=== PATIENT | male | born 1945 | race Caucasian/White ===

== ENCOUNTER 2017-06-04 14:53 | Inpatient (IN) | payer MEDICARE, OTHER ==
--- NOTE | 2017-06-04 15:27 | ED Physician Chart ---
ED Chief Complaint/HPI - Patient Information Date Seen:: 06/04/17 Time Seen:: 15:20 Chief Complaint:: aggressive behavior History of Present Illness:: Patient has apparently been exhibiting [facility]. Allergies:: Allergies Allergy/AdvReac Type Severity Reaction Status Date / Time No Known Allergies Allergy Verified 06/04/17 15:09 Vitals:: Vital Signs - 8 hr 06/04/17 15:15 Temp 97.9 F HR 77 RR 18 BP 156/78 O2 Sat % 97 Historian:: Patient, EMS Review:: Nurse's Note Reviewed, Transfer documents Reviewed ED Review of Systems - Review of Systems General/Constitutional: No fever, No chills Skin: No skin lesions Head: No headache Eyes: No loss of vision ENT: No earache Neck: No neck pain, No swelling Cardio Vascular: No chest pain Pulmonary: No SOB GI: No nausea, No vomiting, No diarrhea G/U: No dysuria Musculoskeletal: No bone or joint pain Endocrine: No polyuria Psychiatric: Prior psych history Hematopoietic: No bruising, No lymphadenopathy Neurological: No syncope, No focal symptoms ED Past Medical History - Past Medical History Past Medical History: HTN, Dyslipidemia, PUD/GERD, Seizures, Thyroid disorder, Dementia, Other (hyperlipidemia; transient ischemic attack) Family History: Other (unavailable) Social History: Care Facility Surgical History: other (unavailable) Psychiatricy History: Dementia Medication: Reviewed Family Medical History - Family Member Father Hx Family Cancer: No Hx Family Congestive Heart Failure: No Hx Family Seizures: No Hx Family HIV: No Hx Family COPD: No Hx Family Psychiatric Problems: No Hx Family Tuberculosis: No ED Physical Exam - Physical Examination General/Constitutional: Awake, Alert, No distress Head: Atraumatic Eyes: Lids, conjuctiva normal, PERRL Skin: Nl inspection, No rash, No skin lesions, No ecchymosis ENMT: External ears, nose nl, Nasal exam nl, Oropharynx nl Neck: No nuchal rigidity Respiratory: Nl effort/Exclusion Other Respiratory comments:: Left side expiratory wheezing Cardio Vascular: RRR GI: No tenderness/rebounding/guarding : No CVA tenderness Extremities: No tenderness or effusion, Normal digits & nails Neuro/Psych: No focal deficits Misc: No paraspinal tenderness ED Labs/Radiology/EKG Results - Lab Results Results: Laboratory Results - last 24 hr 06/04/17 06/04/17 06/04/17 15:20 15:20 15:20 WBC 6.0 RBC 4.73 Hgb 14.2 Hct 42.7 MCV 90.2 MCH 30.1 MCHC Differential 33.3 RDW 13.4 Plt Count 152 MPV 9.1 Neutrophils % 62.4 Lymphocytes % 22.3 Monocytes % 8.7 Eosinophils % 6.1 H Basophils % 0.5 Sodium 137 Potassium 4.5 Chloride 104 Carbon Dioxide 28.6 Anion Gap 8.9 BUN 17 Creatinine 0.9 Est GFR ( Amer) > 60.0 Est GFR (Non-Af Amer) > 60.0 BUN/Creatinine Ratio 18.9 Glucose 125 H Calcium 8.7 Total Bilirubin 0.3 AST 25 ALT 19 Alkaline Phosphatase 75 Total Protein 6.5 Albumin 3.8 L Globulin 2.7 Albumin/Globulin Ratio 1.4 Triglycerides 169 H Cholesterol 157 LDL Cholesterol Direct 98 HDL Cholesterol 46 TSH 4.85 - EKG Interpretations Rate & Rhythm: normal sinus rhythm with a rate of 77 [place]: normal axis Intervals: Q waves in V1 and V2 Comments:: First-degree AV block ED Septic Shock - . Is Septic Shock (SBP<90, OR Lactate>4 mmol\L) present?: No - <6hrs of presentation: Vital Signs: Vital Signs - 8 hr 06/04/17 15:15 Temp 97.9 F HR 77 RR 18 BP 156/78 O2 Sat % 97 ED Reassessment (Disposition) - Reassessment Reassessment Condition:: Unchanged - Diagnosis Diagnosis:: Dementia with agitation - Aftercare/Follow up Instructions Aftercare/Follow-Up Instructions:: Refer to Discharge Instructions - Patient Disposition Admitted to:: [facility] Admitting Medical Physician:: Cristiana Gonzalez Admitting Psych Physician:: Suzette Rubin ED Discharge Plan - Patient Disposition Instructions: Psychosis
[2017-06-04 15:34] LABS: % BASOPHILS 0.5 % (0.0-2.0); % EOSINOPHILS 6.1 % (0.0-5.0); % LYMPHOCYTES 22.3 % (20.0-50.0); % MONOCYTES 8.7 % (2.0-10.0); % NEUTROPHILS 62.4 % (40.0-80.0); EOSINOPHILE ABSOLUTE 0.4 Th/cmm (0.1-0.4); HEMATOCRIT 42.7 % (41.0-60); HEMOGLOBIN 14.2 gm/dL (12-16); LYMPHOCYTE ABSOLUTE 1.3 Th/cmm (1.5-3.0); MEAN CELL VOLUME 90.2 fl (80-99); MEAN CORPUSCULAR HEMOGLOBIN 30.1 pg (27.0-31.0); MEAN CORPUSCULAR HGB CONC 33.3 pg (28.0-36.0); MEAN PLATELET VOLUME 9.1 fl; MONOCYTE ABSOLUTE 0.5 Th/cmm (0.3-1.0); NEUTROPHILE ABSOLUTE 3.8 Th/cmm (1.8-8.0); PLATELET COUNT 152 Th/cmm (150-400); RED BLOOD COUNT 4.73 Mil/cmm (3.80-5.80); RED CELL DISTRIBUTION WIDTH 13.4 % (11.5-20.0)
[2017-06-04 15:45] LABS: ALB/GLOB RATIO 1.4 (1.0-1.8); ALBUMIN 3.8 gm/dL (4.2-5.5); ALKALINE PHOSPHATASE 75 U/L (34-104); ANION GAP 8.9 (7.0-16.0); BILIRUBIN,TOTAL 0.3 mg/dL (0.3-1.0); BUN - UREA NITROGEN 17 mg/dL (7-25); CALCIUM SERUM 8.7 mg/dL (8.6-10.3); CARBON DIOXIDE 28.6 mEq/L (21.0-31.0); CHLORIDE 104 mEq/L (98-107); CHOLESTEROL 157 mg/dL (<200); CREATININE - SERUM 0.9 mg/dL (0.7-1.3); GFR AFRICAN-AMERICAN > 60.0 ml/min (>90); GFR NON AFRICAN-AMERICAN > 60.0 ml/min; GLUCOSE 125 mg/dL (70-105); HDL -HIGH DENSITY LIPOPROTEIN 46 mg/dL (23-92); POTASSIUM SERUM 4.5 mEq/L (3.5-5.1); SGOT 25 U/L (13-39); SGPT/ALT 19 U/L (7-52); SODIUM SERUM 137 mEq/L (136-145); TOTAL PROTEIN,SERUM 6.5 gm/dL (6.0-8.3); TRIGLYCERIDES 169 mg/dL (<150)
[2017-06-04 20:15] VITALS: BP 160/87
[2017-06-04] MEDS: Enoxaparin 60 mg/0.6 mL 0.6mL Syr SUBQ SCH (21:24)
[2017-06-05] MEDS ORDERED: Magnesium Hydroxide (MOM) 30 mL UDC PO PRN (02:16)
[2017-06-05] MEDS ORDERED: Maalox 30 mL Cup PO PRN (02:16)
[2017-06-05] MEDS: Levothyroxine 0.075 Mg Tab PO SCH (06:44)
[2017-06-05] MEDS: Atorvastatin Calcium 10 MG TAB PO SCH (08:47)
[2017-06-05] MEDS: Pantoprazole 40 mg EC Tab PO SCH (08:47)
[2017-06-05] MEDS: Enoxaparin 60 mg/0.6 mL 0.6mL Syr SUBQ SCH ×2 (09:31→21:14)
[2017-06-05 12:26] LABS: INR 1.44 (0.5-1.4); PROTHROMBIN TIME (TEST) 15.3 SECONDS (9.5-11.5)
--- NOTE | 2017-06-05 13:23 | History and Physical ---
History of Present Illness - HPI Chief Complaint: agressive behavior HPI: 71 year old male who is a long term resident admitted to the [facility] for aggressive behavior towards nursing staff. Vital Signs: Last Vital Signs Temp 97.8 F 06/05/17 06:29 Pulse 77 06/05/17 08:47 Resp 20 06/05/17 08:00 BP 145/84 06/05/17 08:47 Pulse Ox 96 06/05/17 06:29 Past Medical History Other History: HTN, Dyslipidemia, PUD/GERD, Seizures, Thyroid disorder, Dementia, hyperlipidemia; transient ischemic attack Family Medical History - Family Member Father Hx Family Cancer: No Hx Family Congestive Heart Failure: No Hx Family Seizures: No Hx Family HIV: No Hx Family COPD: No Hx Family Psychiatric Problems: No Hx Family Tuberculosis: No Social History Smoke: No Alcohol: None Drugs: None Lives: [facility] Domestic Violence: Negative - Medications Home Medications: Home Medication Medication Instructions Recorded Type Atorvastatin Calcium [Lipitor] 20 mg PO DAILY 06/04/17 History Carvedilol 6.25 mg PO BID 06/04/17 History Donepezil Hcl [Aricept] 5 mg PO HS 06/04/17 History Enoxaparin [Lovenox] 60 mg SUBQ Q12HR 06/04/17 History Ibuprofen 200 mg PO Q6HR 06/04/17 History Levothyroxine Sodium [Tirosint] 75 mcg PO AC 06/04/17 History OLANZapine [ZyPREXA] 2.5 mg PO Q6HR 06/04/17 History Pantoprazole [Protonix] 40 mg PO DAILY 06/04/17 History Phenytoin Sodium Extended 100 mg PO BID 06/04/17 History [Dilantin] QUEtiapine Fumarate [SEROquel] 100 mg PO BID 06/04/17 History Valproic Acid [Depakene] 250 mg PO TID 06/04/17 History Warfarin Sodium [Coumadin*] 2.5 mg PO DAILY 06/04/17 History - Allergies Allergies/Adverse Reactions: Allergies Allergy/AdvReac Type Severity Reaction Status Date / Time No Known Allergies Allergy Verified 06/04/17 15:09 Review of Systems - Review of Systems Constitutional: Report: No Significant Eyes: Report: No Significant ENT: Report: No Significant Respiratory: Report: No Significant Cardiovascular: Report: No Significant Gastrointestinal: Report: No Significant Genitourinary: Report: No Significant Musculoskeletal: Report: No Significant Skin: Report: No Significant Neurological: Report: No Significant Physical Exam - Physical Exam HEENT: Report: Ears Nose Throat within normal limits Neck: Report: Within normal limits Cardiovascular Systems: Report: +s1/s2 noted Respiratory: Report: Breath Sounds are within normal limits Abdomen: Report: Non-tender to palpation Back: Report: Inspection of back is within normal limits. Extremities: Report: Non-tender to palpation. Skin: Report: Color of skin is within normal limits Neuro/Psych: Report: Mood affect is within normal limits - Lab Results All Lab Results last 24 hours: Laboratory Results - last 24 hr 06/05/17 11:56 PT 15.3 H INR 1.44 H - Assessment Assessment: HTN Dyslipidemia PUD/GERD Seizures Thyroid disorder Dementia, hyperlipidemia hx transient ischemic attack) - Plan Plan: seizure precautions adjust bp meds accordingly continue current plan of care
--- NOTE | 2017-06-05 22:07 | Psychosocial Evaluation ---
DATE OF SERVICE: JUSTIFICATION FOR HOSPITALIZATION: Fighting, aggressive behaviors, worsening confusion. HISTORY OF PRESENT ILLNESS: A 71-year-old male unclear psych history, confused, disoriented, response to every question I have with "come on", noted to be fighting, confused, agitated, aggressive and violent in the unit. AO to name only. PAST PSYCHIATRIC HISTORY: Dementia per documentation. PAST MEDICAL HISTORY: Hypertension, dyslipidemia, GERD, seizure disorder, and thyroid disorder. FAMILY HISTORY: Unknown. SOCIAL HISTORY: Apparently residing in care facility. It is unclear the extent of any family involvement. His address is noted to be in [place]. Unclear drugs, alcohol or tobacco. MEDICATIONS: Reviewed including doses and frequencies. The patient is not answering any questions about depression, too confused. MENTAL STATUS EXAMINATION: Stated age, some eye contact. Sleeping, but arousable, confused, disoriented, rambling nonsensical "come on, come on". No suicidal gestures. Unclear psychotic symptoms. Poor insight and judgment, poor impulse control. PROVISIONAL DIAGNOSES: Dementia with behavioral disturbances; psychosis, unspecified; mood, unspecified; anxiety, unspecified. MEDICAL: Please see full H and P. ASSESSMENT: The patient is requiring inpatient hospitalization, aggressive, agitated, violent. PLAN: We will continue to monitor. We will initiate medications to target mood symptoms and aggressive symptoms. TREATMENT PLAN: Includes group as well as milieu therapy. CONDITIONS FOR DISCHARGE: Improved mood, improved affect, better control of his aggressive symptoms. [facility]# [id number]
[2017-06-06] MEDS: Levothyroxine 0.075 Mg Tab PO SCH (06:35)
[2017-06-06] MEDS: Enoxaparin 60 mg/0.6 mL 0.6mL Syr SUBQ SCH ×2 (09:24→21:23)
[2017-06-06] MEDS: Atorvastatin Calcium 10 MG TAB PO SCH (09:24)
[2017-06-06] MEDS: Pantoprazole 40 mg EC Tab PO SCH (09:27)
--- NOTE | 2017-06-06 12:20 | Internal Medicine Prog Note ---
Internal Medicine Subjective - Subjective Service Date: 06/06/17 Patient seen and examined:: with staff Patient is:: awake Per staff patient has:: no adverse event Internal Medicine Objective - Results Result Diagrams: 06/04/17 15:20 06/04/17 15:20 Recent Labs: Laboratory Last Values WBC 6.0 Th/cmm (4.8-10.8) 06/04/17 15:20 RBC 4.73 Mil/cmm (3.80-5.80) 06/04/17 15:20 Hgb 14.2 gm/dL (12-16) 06/04/17 15:20 Hct 42.7 % (41.0-60) 06/04/17 15:20 MCV 90.2 fl (80-99) 06/04/17 15:20 MCH 30.1 pg (27.0-31.0) 06/04/17 15:20 MCHC Differential 33.3 pg (28.0-36.0) 06/04/17 15:20 RDW 13.4 % (11.5-20.0) 06/04/17 15:20 Plt Count 152 Th/cmm (150-400) 06/04/17 15:20 MPV 9.1 fl 06/04/17 15:20 Neutrophils % 62.4 % (40.0-80.0) 06/04/17 15:20 Lymphocytes % 22.3 % (20.0-50.0) 06/04/17 15:20 Monocytes % 8.7 % (2.0-10.0) 06/04/17 15:20 Eosinophils % 6.1 % (0.0-5.0) H 06/04/17 15:20 Basophils % 0.5 % (0.0-2.0) 06/04/17 15:20 PT 15.3 SECONDS (9.5-11.5) H 06/05/17 11:56 INR 1.44 (0.5-1.4) H 06/05/17 11:56 Sodium 137 mEq/L (136-145) 06/04/17 15:20 Potassium 4.5 mEq/L (3.5-5.1) 06/04/17 15:20 Chloride 104 mEq/L (98-107) 06/04/17 15:20 Carbon Dioxide 28.6 mEq/L (21.0-31.0) 06/04/17 15:20 Anion Gap 8.9 (7.0-16.0) 06/04/17 15:20 BUN 17 mg/dL (7-25) 06/04/17 15:20 Creatinine 0.9 mg/dL (0.7-1.3) 06/04/17 15:20 Est GFR ( Amer) > 60.0 ml/min (>90) 06/04/17 15:20 Est GFR (Non-Af Amer) > 60.0 ml/min 06/04/17 15:20 BUN/Creatinine Ratio 18.9 06/04/17 15:20 Glucose 125 mg/dL (70-105) H 06/04/17 15:20 Calcium 8.7 mg/dL (8.6-10.3) 06/04/17 15:20 Total Bilirubin 0.3 mg/dL (0.3-1.0) 06/04/17 15:20 AST 25 U/L (13-39) 06/04/17 15:20 ALT 19 U/L (7-52) 06/04/17 15:20 Alkaline Phosphatase 75 U/L (34-104) 06/04/17 15:20 Total Protein 6.5 gm/dL (6.0-8.3) 06/04/17 15:20 Albumin 3.8 gm/dL (4.2-5.5) L 06/04/17 15:20 Globulin 2.7 gm/dL 06/04/17 15:20 Albumin/Globulin Ratio 1.4 (1.0-1.8) 06/04/17 15:20 Triglycerides 169 mg/dL (<150) H 06/04/17 15:20 Cholesterol 157 mg/dL (<200) 06/04/17 15:20 LDL Cholesterol Direct 98 mg/dL (75-193) 06/04/17 15:20 HDL Cholesterol 46 mg/dL (23-92) 06/04/17 15:20 TSH 4.85 uIU/ml (0.34-5.60) 06/04/17 15:20 - Physical Exam Vitals and I&O: Vital Signs Temp 97.2 F 06/06/17 06:45 Pulse 82 06/06/17 09:26 Resp 20 06/06/17 06:45 BP 143/81 06/06/17 09:26 Pulse Ox 98 06/06/17 06:45 Intake & Output 06/05/17 06/06/17 06/06/17 18:59 06:59 18:59 Intake Total 120 Balance 120 Intake: Oral 120 Other: # Voids 3 Stool Characteristics Formed Formed Active Medications: Current Medications Acetaminophen (Tylenol) 650 mg PO Q6H PRN PRN Reason: Mild Pain/Headache/T above 101 Stop: 08/04/17 02:15 Al Hydrox/Mg Hydrox/Simethicone (Maalox) 30 ml PO Q6H PRN PRN Reason: Dyspepsia Stop: 08/04/17 02:15 Atorvastatin Calcium (Lipitor) 20 mg PO DAILY FLORENTIN Stop: 08/04/17 08:59 Last Admin: 06/06/17 09:24 Dose: 20 mg Carvedilol (Coreg) 6.25 mg PO BID FLORENTIN Stop: 08/04/17 08:59 Last Admin: 06/06/17 09:26 Dose: 6.25 mg Donepezil HCl (Aricept) 5 mg PO HS FLORENTIN Stop: 08/03/17 20:59 Last Admin: 06/05/17 21:14 Dose: 5 mg Enoxaparin Sodium (Lovenox) 60 mg SUBQ Q12HR FLORENTIN Stop: 08/03/17 20:59 Last Admin: 06/06/17 09:24 Dose: 60 mg Ibuprofen (Advil) 200 mg PO Q6HR FLORENTIN Stop: 08/04/17 00:00 Last Admin: 06/06/17 06:34 Dose: 200 mg Levothyroxine Sodium (Synthroid) 0.075 mg PO QDAC FLORENTIN Stop: 08/04/17 07:29 Last Admin: 06/06/17 06:35 Dose: 0.075 mg Magnesium Hydroxide (Milk Of Magnesia) 30 ml PO HS PRN PRN Reason: Constipation Stop: 08/04/17 02:15 Memantine (Namenda) 5 mg PO DAILY FLORENTIN Stop: 08/05/17 08:59 Last Admin: 06/06/17 09:27 Dose: 5 mg Olanzapine (Zyprexa) 2.5 mg PO Q6HR FLORENTIN PRN Reason: Protocol Stop: 08/04/17 00:00 Last Admin: 06/06/17 06:35 Dose: 2.5 mg Pantoprazole Sodium (Protonix) 40 mg PO DAILY FLORENTIN Stop: 08/04/17 08:59 Last Admin: 06/06/17 09:27 Dose: 40 mg Phenytoin (Dilantin) 100 mg PO BID FLORENTIN Stop: 08/04/17 08:59 Last Admin: 06/06/17 09:25 Dose: 100 mg Quetiapine Fumarate (Seroquel) 100 mg PO BID FLORENTIN PRN Reason: Protocol Stop: 08/04/17 08:59 Last Admin: 06/06/17 09:24 Dose: 100 mg Valproate Sodium (Depakene) 250 mg PO TID FLORENTIN PRN Reason: Protocol Stop: 08/03/17 20:59 Last Admin: 06/06/17 09:24 Dose: 250 mg Warfarin Sodium (Coumadin) 2.5 mg PO DAILY FLORENTIN PRN Reason: Protocol Stop: 08/04/17 08:59 Last Admin: 06/06/17 09:24 Dose: 2.5 mg Zolpidem Tartrate (Ambien) 5 mg PO HS PRN PRN Reason: Insomnia Stop: 08/04/17 02:15 General: alert HEENT: NC/AT, PERRLA Neck: Supple Lungs: CTAB Cardiovascular: RRR, Normal S1, Normal S2, without murmur, with murmur Abdomen: soft, non-tender, non-distended, positive bowel sound Neurological: no change Internal Medicine Assmt/Plan - Assessment Assessment: HTN Dyslipidemia PUD/GERD Seizures Thyroid disorder Dementia, hyperlipidemia hx transient ischemic attack) - Plan Plan: seizure precautions adjust bp meds accordingly continue current plan of care
[2017-06-07] MEDS: Levothyroxine 0.075 Mg Tab PO SCH (06:31)
[2017-06-07] MEDS: Atorvastatin Calcium 10 MG TAB PO SCH (08:43)
[2017-06-07] MEDS: Pantoprazole 40 mg EC Tab PO SCH (08:45)
[2017-06-07] MEDS: Enoxaparin 60 mg/0.6 mL 0.6mL Syr SUBQ SCH ×3 (08:45→21:50)
--- NOTE | 2017-06-07 22:51 | Progress Notes ---
DATE: 06/07/2017 SUBJECTIVE: The patient was seen in the dining area, watching television. The patient appears to be irritable and aggressive at this time, otherwise appears to be in no acute distress. OBJECTIVE: VITAL SIGNS: Temperature 97.3, heart rate 81, blood pressure 146/76, respiration 20, 98% on room air. HEENT: Head is atraumatic and normocephalic. Eyes: Bilateral conjunctivae are clear. Bilateral pupils are equally round and reactive. NECK: Supple. No JVD. CARDIOVASCULAR: S1 and S2, without murmur. PULMONARY: Clear to auscultation. GASTROINTESTINAL: Soft and nontender without guarding. Positive bowel sounds. MUSCULOSKELETAL: No clubbing, cyanosis noted. ASSESSMENT: 1. Dementia. 2. Hypertension. 3. Hyperlipidemia. 4. Gastroesophageal reflux disease. 5. Seizure. 6. History of transient ischemic attack. PLAN: We will keep the patient inpatient in the Psychiatric Unit. We will follow up with a psychiatrist to monitor the patient's condition and behavior. Treatment plans were discussed with the patient's nurse. Treatment plans were discussed with Dr. Gonzalez. JOB# [id number]
--- NOTE | 2017-06-08 00:31 | Progress Notes ---
DATE: 06/07/2017 SUBJECTIVE: The patient was seen and evaluated. The patient's chart reviewed. Overnight nursing staff reported the patient continues to , is extremely irritable and agitated upon approach. The patient is a 71-year-old male who is on [id number] evaluation. The patient is eating. Upon approach, the patient becomes easily irritable, reporting who are you, perseverates about who I am and does not want to engage in much conversation. Easily confused, suspicious. MENTAL STATUS EXAMINATION: Suspicious, paranoid and delusional. ASSESSMENT AND PLAN: The patient is a 71-year-old male with history of dementia with behavior disturbances and psychosis, unspecified with unspecified mood disorder who is easily triggered and easily agitated. We will continue with the primary psychiatrist treatment plan and goals of medication still recently initiated, which include Namenda 5 mg a day, Zyprexa 2.5, Seroquel 100 mg p.o. b.i.d. with Depakote 250 t.i.d. We will check Depakote levels and minimize the use of olanzapine unless for emergent state. JOB# [id number]
--- NOTE | 2017-06-08 00:45 | Progress Notes ---
DATE: 06/06/2017 SUBJECTIVE: The patient is currently in the hospital, fighting, aggressive behaviors, worsening confusion. States he is in the hospital for "sleep." Does not know the year, month, the day of the week. Really has no idea what is going on. The patient with dementia per documentation, highly confused, disoriented. The patient currently isolative and withdrawn. MEDICATIONS: Reviewed. ASSESSMENT: The patient remains symptomatic, impulsive, unpredictable, still with ongoing behaviors. PLAN: We will continue to monitor. Recommend increasing collateral. Recently started dosing of Namenda. We will monitor and follow up. JOB# [id number]
[2017-06-08] MEDS: Levothyroxine 0.075 Mg Tab PO SCH (06:42)
[2017-06-08] MEDS: Atorvastatin Calcium 10 MG TAB PO SCH (09:55)
[2017-06-08] MEDS: Enoxaparin 60 mg/0.6 mL 0.6mL Syr SUBQ SCH ×2 (09:55→21:03)
[2017-06-08] MEDS: Pantoprazole 40 mg EC Tab PO SCH (09:56)
--- NOTE | 2017-06-08 10:50 | General Progress Note ---
Subjective - Review of Systems Events since last encounter: irritable, but in no acute distress Objective - Results Result Diagrams: 06/04/17 15:20 06/04/17 15:20 Recent Labs: Laboratory Last Values WBC 6.0 Th/cmm (4.8-10.8) 06/04/17 15:20 RBC 4.73 Mil/cmm (3.80-5.80) 06/04/17 15:20 Hgb 14.2 gm/dL (12-16) 06/04/17 15:20 Hct 42.7 % (41.0-60) 06/04/17 15:20 MCV 90.2 fl (80-99) 06/04/17 15:20 MCH 30.1 pg (27.0-31.0) 06/04/17 15:20 MCHC Differential 33.3 pg (28.0-36.0) 06/04/17 15:20 RDW 13.4 % (11.5-20.0) 06/04/17 15:20 Plt Count 152 Th/cmm (150-400) 06/04/17 15:20 MPV 9.1 fl 06/04/17 15:20 Neutrophils % 62.4 % (40.0-80.0) 06/04/17 15:20 Lymphocytes % 22.3 % (20.0-50.0) 06/04/17 15:20 Monocytes % 8.7 % (2.0-10.0) 06/04/17 15:20 Eosinophils % 6.1 % (0.0-5.0) H 06/04/17 15:20 Basophils % 0.5 % (0.0-2.0) 06/04/17 15:20 PT 15.3 SECONDS (9.5-11.5) H 06/05/17 11:56 INR 1.44 (0.5-1.4) H 06/05/17 11:56 Sodium 137 mEq/L (136-145) 06/04/17 15:20 Potassium 4.5 mEq/L (3.5-5.1) 06/04/17 15:20 Chloride 104 mEq/L (98-107) 06/04/17 15:20 Carbon Dioxide 28.6 mEq/L (21.0-31.0) 06/04/17 15:20 Anion Gap 8.9 (7.0-16.0) 06/04/17 15:20 BUN 17 mg/dL (7-25) 06/04/17 15:20 Creatinine 0.9 mg/dL (0.7-1.3) 06/04/17 15:20 Est GFR ( Amer) > 60.0 ml/min (>90) 06/04/17 15:20 Est GFR (Non-Af Amer) > 60.0 ml/min 06/04/17 15:20 BUN/Creatinine Ratio 18.9 06/04/17 15:20 Glucose 125 mg/dL (70-105) H 06/04/17 15:20 Calcium 8.7 mg/dL (8.6-10.3) 06/04/17 15:20 Total Bilirubin 0.3 mg/dL (0.3-1.0) 06/04/17 15:20 AST 25 U/L (13-39) 06/04/17 15:20 ALT 19 U/L (7-52) 06/04/17 15:20 Alkaline Phosphatase 75 U/L (34-104) 06/04/17 15:20 Total Protein 6.5 gm/dL (6.0-8.3) 06/04/17 15:20 Albumin 3.8 gm/dL (4.2-5.5) L 06/04/17 15:20 Globulin 2.7 gm/dL 06/04/17 15:20 Albumin/Globulin Ratio 1.4 (1.0-1.8) 06/04/17 15:20 Triglycerides 169 mg/dL (<150) H 06/04/17 15:20 Cholesterol 157 mg/dL (<200) 06/04/17 15:20 LDL Cholesterol Direct 98 mg/dL (75-193) 06/04/17 15:20 HDL Cholesterol 46 mg/dL (23-92) 06/04/17 15:20 TSH 4.85 uIU/ml (0.34-5.60) 06/04/17 15:20 RPR NONREACTIVE (NONREACTIVE) 06/04/17 15:20 - Physical Exam Vitals and I&O: Vital Signs Temp 98 F 06/08/17 05:59 Pulse 87 06/08/17 09:55 Resp 18 01/07/18 05:59 BP 136/78 06/08/17 09:55 Pulse Ox 95 06/08/17 05:59 Intake & Output 06/07/17 06/08/17 06/08/17 18:59 06:59 18:59 Intake Total 1200 480 Balance 1200 480 Intake: Oral 1200 480 Other: # Voids 3 2 Stool Characteristics Formed Formed Active Medications: Current Medications Acetaminophen (Tylenol) 650 mg PO Q6H PRN PRN Reason: Mild Pain/Headache/T above 101 Stop: 08/04/17 02:15 Al Hydrox/Mg Hydrox/Simethicone (Maalox) 30 ml PO Q6H PRN PRN Reason: Dyspepsia Stop: 08/04/17 02:15 Atorvastatin Calcium (Lipitor) 20 mg PO DAILY FLORENTIN Stop: 08/04/17 08:59 Last Admin: 06/08/17 09:55 Dose: 20 mg Carvedilol (Coreg) 6.25 mg PO BID FLORENTIN Stop: 08/04/17 08:59 Last Admin: 06/08/17 09:55 Dose: 6.25 mg Donepezil HCl (Aricept) 5 mg PO HS FLORENTIN Stop: 08/03/17 20:59 Last Admin: 06/07/17 21:50 Dose: 5 mg Enoxaparin Sodium (Lovenox) 60 mg SUBQ Q12HR FLORENTIN Stop: 08/03/17 20:59 Last Admin: 06/08/17 09:55 Dose: 60 mg Ibuprofen (Advil) 200 mg PO Q6HR FLORENTIN Stop: 08/04/17 00:00 Last Admin: 06/08/17 05:40 Dose: 200 mg Levothyroxine Sodium (Synthroid) 0.075 mg PO QDAC FLORENTIN Stop: 08/04/17 07:29 Last Admin: 06/08/17 06:42 Dose: 0.075 mg Magnesium Hydroxide (Milk Of Magnesia) 30 ml PO HS PRN PRN Reason: Constipation Stop: 08/04/17 02:15 Memantine (Namenda) 5 mg PO DAILY FLORENTIN Stop: 08/05/17 08:59 Last Admin: 06/08/17 09:56 Dose: 5 mg Olanzapine (Zyprexa) 2.5 mg PO Q6HR FLORENTIN PRN Reason: Protocol Stop: 08/04/17 00:00 Last Admin: 06/08/17 05:41 Dose: 2.5 mg Pantoprazole Sodium (Protonix) 40 mg PO DAILY FLORENTIN Stop: 08/04/17 08:59 Last Admin: 06/08/17 09:56 Dose: 40 mg Phenytoin (Dilantin) 100 mg PO BID FLORENTIN Stop: 08/04/17 08:59 Last Admin: 06/08/17 09:56 Dose: 100 mg Quetiapine Fumarate (Seroquel) 100 mg PO BID FLORENTIN PRN Reason: Protocol Stop: 08/04/17 08:59 Last Admin: 06/08/17 09:56 Dose: 100 mg Valproate Sodium (Depakene) 250 mg PO TID FLORENTIN PRN Reason: Protocol Stop: 08/03/17 20:59 Last Admin: 06/08/17 09:56 Dose: 250 mg Warfarin Sodium (Coumadin) 2.5 mg PO DAILY FLORENTIN PRN Reason: Protocol Stop: 08/04/17 08:59 Last Admin: 06/08/17 09:56 Dose: 2.5 mg Zolpidem Tartrate (Ambien) 5 mg PO HS PRN PRN Reason: Insomnia Stop: 08/04/17 02:15 General: No acute distress HEENT: Atraumatic, PERRLA Neck: Supple Cardiovascular: Regular rate, Normal S1, Normal S2 Lungs: Clear to auscultation Assessment/Plan - Problem List Patient Problems: All Active Problems Dementia (Acute) F03.90 GERD (gastroesophageal reflux disease) (Acute) K21.9 HTN (hypertension) (Acute) I10 History of transient ischemic attack (Acute) Hyperlipidemia (Acute) E78.5 Seizure (Acute) R56.9 - Plan Plan: as per order sheet
--- NOTE | 2017-06-08 22:43 | Progress Notes ---
DATE: 06/08/2017 SUBJECTIVE: Today, the patient was seen and evaluated. The patient's chart reviewed. Covering for Dr. Rubin. Today on [id number] evaluation, easily irritable, suspicious, paranoid. MENTAL STATUS EXAMINATION: Suspicious, paranoid, delusional, poor insight, poor impulse control. ASSESSMENT AND PLAN: A 71-year-old male with a history of dementia with behavior disturbance with psychosis, who continues to be easily triggered. We will continue with current medication regimen as recently initiated. We will continue following up with the Depakote levels checked this morning and drawn. JOB# [id number]
[2017-06-09] MEDS: Levothyroxine 0.075 Mg Tab PO SCH (06:47)
[2017-06-09] MEDS: Atorvastatin Calcium 10 MG TAB PO SCH (09:58)
[2017-06-09] MEDS: Pantoprazole 40 mg EC Tab PO SCH (09:59)
--- NOTE | 2017-06-09 11:39 | Internal Medicine Prog Note ---
Internal Medicine Subjective - Subjective Service Date: 06/09/17 Patient is:: awake Per staff patient has:: no adverse event Internal Medicine Objective - Results Result Diagrams: 06/04/17 15:20 06/04/17 15:20 Recent Labs: Laboratory Last Values WBC 6.0 Th/cmm (4.8-10.8) 06/04/17 15:20 RBC 4.73 Mil/cmm (3.80-5.80) 06/04/17 15:20 Hgb 14.2 gm/dL (12-16) 06/04/17 15:20 Hct 42.7 % (41.0-60) 06/04/17 15:20 MCV 90.2 fl (80-99) 06/04/17 15:20 MCH 30.1 pg (27.0-31.0) 06/04/17 15:20 MCHC Differential 33.3 pg (28.0-36.0) 06/04/17 15:20 RDW 13.4 % (11.5-20.0) 06/04/17 15:20 Plt Count 152 Th/cmm (150-400) 06/04/17 15:20 MPV 9.1 fl 06/04/17 15:20 Neutrophils % 62.4 % (40.0-80.0) 06/04/17 15:20 Lymphocytes % 22.3 % (20.0-50.0) 06/04/17 15:20 Monocytes % 8.7 % (2.0-10.0) 06/04/17 15:20 Eosinophils % 6.1 % (0.0-5.0) H 06/04/17 15:20 Basophils % 0.5 % (0.0-2.0) 06/04/17 15:20 PT 15.3 SECONDS (9.5-11.5) H 06/05/17 11:56 INR 1.44 (0.5-1.4) H 06/05/17 11:56 Sodium 137 mEq/L (136-145) 06/04/17 15:20 Potassium 4.5 mEq/L (3.5-5.1) 06/04/17 15:20 Chloride 104 mEq/L (98-107) 06/04/17 15:20 Carbon Dioxide 28.6 mEq/L (21.0-31.0) 06/04/17 15:20 Anion Gap 8.9 (7.0-16.0) 06/04/17 15:20 BUN 17 mg/dL (7-25) 06/04/17 15:20 Creatinine 0.9 mg/dL (0.7-1.3) 06/04/17 15:20 Est GFR ( Amer) > 60.0 ml/min (>90) 06/04/17 15:20 Est GFR (Non-Af Amer) > 60.0 ml/min 06/04/17 15:20 BUN/Creatinine Ratio 18.9 06/04/17 15:20 Glucose 125 mg/dL (70-105) H 06/04/17 15:20 Calcium 8.7 mg/dL (8.6-10.3) 06/04/17 15:20 Total Bilirubin 0.3 mg/dL (0.3-1.0) 06/04/17 15:20 AST 25 U/L (13-39) 06/04/17 15:20 ALT 19 U/L (7-52) 06/04/17 15:20 Alkaline Phosphatase 75 U/L (34-104) 06/04/17 15:20 Total Protein 6.5 gm/dL (6.0-8.3) 06/04/17 15:20 Albumin 3.8 gm/dL (4.2-5.5) L 06/04/17 15:20 Globulin 2.7 gm/dL 06/04/17 15:20 Albumin/Globulin Ratio 1.4 (1.0-1.8) 06/04/17 15:20 Triglycerides 169 mg/dL (<150) H 06/04/17 15:20 Cholesterol 157 mg/dL (<200) 06/04/17 15:20 LDL Cholesterol Direct 98 mg/dL (75-193) 06/04/17 15:20 HDL Cholesterol 46 mg/dL (23-92) 06/04/17 15:20 TSH 4.85 uIU/ml (0.34-5.60) 06/04/17 15:20 RPR NONREACTIVE (NONREACTIVE) 06/04/17 15:20 - Physical Exam Vitals and I&O: Vital Signs Temp 98.6 F 06/09/17 06:29 Pulse 99 06/09/17 09:58 Resp 19 01/08/18 06:29 BP 137/80 06/09/17 09:58 Pulse Ox 97 06/09/17 06:29 Intake & Output 06/08/17 06/09/17 06/09/17 18:59 06:59 18:59 Intake Total 1000 360 Balance 1000 360 Intake: Oral 1000 360 Other: # Voids 2 2 # Bowel Movements 1 0 Stool Characteristics Soft Formed Active Medications: Current Medications Acetaminophen (Tylenol) 650 mg PO Q6H PRN PRN Reason: Mild Pain/Headache/T above 101 Stop: 08/04/17 02:15 Al Hydrox/Mg Hydrox/Simethicone (Maalox) 30 ml PO Q6H PRN PRN Reason: Dyspepsia Stop: 08/04/17 02:15 Atorvastatin Calcium (Lipitor) 20 mg PO DAILY FLORENTIN Stop: 08/04/17 08:59 Last Admin: 06/09/17 09:58 Dose: 20 mg Carvedilol (Coreg) 6.25 mg PO BID FLORENTIN Stop: 08/04/17 08:59 Last Admin: 06/09/17 09:58 Dose: 6.25 mg Donepezil HCl (Aricept) 5 mg PO HS FLORENTIN Stop: 08/03/17 20:59 Last Admin: 06/08/17 21:03 Dose: 5 mg Enoxaparin Sodium (Lovenox) 60 mg SUBQ Q12HR FLORENTIN Stop: 08/03/17 20:59 Last Admin: 06/08/17 21:03 Dose: 60 mg Ibuprofen (Advil) 200 mg PO Q6HR FLORENTIN Stop: 08/04/17 00:00 Last Admin: 06/09/17 06:21 Dose: 200 mg Levothyroxine Sodium (Synthroid) 0.075 mg PO QDAC FLORENTIN Stop: 08/04/17 07:29 Last Admin: 06/09/17 06:47 Dose: 0.075 mg Magnesium Hydroxide (Milk Of Magnesia) 30 ml PO HS PRN PRN Reason: Constipation Stop: 08/04/17 02:15 Memantine (Namenda) 5 mg PO DAILY FLORENTIN Stop: 08/05/17 08:59 Last Admin: 06/09/17 09:59 Dose: 5 mg Olanzapine (Zyprexa) 2.5 mg PO Q6HR FLORENTIN PRN Reason: Protocol Stop: 08/04/17 00:00 Last Admin: 06/09/17 06:21 Dose: 2.5 mg Pantoprazole Sodium (Protonix) 40 mg PO DAILY FLORENTIN Stop: 08/04/17 08:59 Last Admin: 06/09/17 09:59 Dose: 40 mg Phenytoin (Dilantin) 100 mg PO BID FLORENTIN Stop: 08/04/17 08:59 Last Admin: 06/09/17 09:59 Dose: 100 mg Quetiapine Fumarate (Seroquel) 100 mg PO BID FLORENTIN PRN Reason: Protocol Stop: 08/04/17 08:59 Last Admin: 06/09/17 09:59 Dose: 100 mg Valproate Sodium (Depakene) 250 mg PO TID FLORENTIN PRN Reason: Protocol Stop: 08/03/17 20:59 Last Admin: 06/09/17 09:59 Dose: 250 mg Warfarin Sodium (Coumadin) 2.5 mg PO DAILY FLORENTIN PRN Reason: Protocol Stop: 08/04/17 08:59 Last Admin: 06/09/17 10:00 Dose: 2.5 mg Zolpidem Tartrate (Ambien) 5 mg PO HS PRN PRN Reason: Insomnia Stop: 08/04/17 02:15 Last Admin: 06/08/17 21:03 Dose: 5 mg General: alert HEENT: NC/AT, PERRLA Neck: Supple Lungs: CTAB Cardiovascular: RRR, Normal S1, Normal S2, without murmur, with murmur Abdomen: soft, non-tender, non-distended, positive bowel sound Neurological: no change Internal Medicine Assmt/Plan - Assessment Assessment: HTN Dyslipidemia PUD/GERD Seizures Thyroid disorder Dementia, hyperlipidemia hx transient ischemic attack) - Plan Plan: seizure precautions adjust bp meds accordingly continue current plan of care
[2017-06-09] MEDS: Enoxaparin 60 mg/0.6 mL 0.6mL Syr SUBQ SCH (13:39)
--- NOTE | 2017-06-10 00:17 | Progress Notes ---
DATE: 06/09/2017 SUBJECTIVE: The patient is currently in the hospital, irritable, perseverative, confused, disoriented, talking about clinical names and clinical places, not making any sense. I have a lot of difficulty following his thought processes. He remains somewhat impulsive, still in a Cait chair, unpredictable behaviors at unruly at times, impulsive at times. Currently, on Depakote, Seroquel, Dilantin, Zyprexa every 6 hours and also Aricept. ASSESSMENT: The patient mumbling, disorganized, disoriented, impulsive, still with ongoing behavioral disturbances. PLAN: We will continue to monitor. Medications were reviewed. We will continue to make appropriate dosages. [facility]# [id number]
[2017-06-10] MEDS: Levothyroxine 0.075 Mg Tab PO SCH (07:16)
[2017-06-10] MEDS: Atorvastatin Calcium 10 MG TAB PO SCH (10:56)
[2017-06-10] MEDS: Pantoprazole 40 mg EC Tab PO SCH (10:58)
--- NOTE | 2017-06-10 16:17 | General Progress Note ---
Subjective - Review of Systems Events since last encounter: patient still confused disoriented Objective - Results Result Diagrams: 06/04/17 15:20 06/04/17 15:20 Recent Labs: Laboratory Last Values WBC 6.0 Th/cmm (4.8-10.8) 06/04/17 15:20 RBC 4.73 Mil/cmm (3.80-5.80) 06/04/17 15:20 Hgb 14.2 gm/dL (12-16) 06/04/17 15:20 Hct 42.7 % (41.0-60) 06/04/17 15:20 MCV 90.2 fl (80-99) 06/04/17 15:20 MCH 30.1 pg (27.0-31.0) 06/04/17 15:20 MCHC Differential 33.3 pg (28.0-36.0) 06/04/17 15:20 RDW 13.4 % (11.5-20.0) 06/04/17 15:20 Plt Count 152 Th/cmm (150-400) 06/04/17 15:20 MPV 9.1 fl 06/04/17 15:20 Neutrophils % 62.4 % (40.0-80.0) 06/04/17 15:20 Lymphocytes % 22.3 % (20.0-50.0) 06/04/17 15:20 Monocytes % 8.7 % (2.0-10.0) 06/04/17 15:20 Eosinophils % 6.1 % (0.0-5.0) H 06/04/17 15:20 Basophils % 0.5 % (0.0-2.0) 06/04/17 15:20 PT 15.3 SECONDS (9.5-11.5) H 06/05/17 11:56 INR 1.44 (0.5-1.4) H 06/05/17 11:56 Sodium 137 mEq/L (136-145) 06/04/17 15:20 Potassium 4.5 mEq/L (3.5-5.1) 06/04/17 15:20 Chloride 104 mEq/L (98-107) 06/04/17 15:20 Carbon Dioxide 28.6 mEq/L (21.0-31.0) 06/04/17 15:20 Anion Gap 8.9 (7.0-16.0) 06/04/17 15:20 BUN 17 mg/dL (7-25) 06/04/17 15:20 Creatinine 0.9 mg/dL (0.7-1.3) 06/04/17 15:20 Est GFR ( Amer) > 60.0 ml/min (>90) 06/04/17 15:20 Est GFR (Non-Af Amer) > 60.0 ml/min 06/04/17 15:20 BUN/Creatinine Ratio 18.9 06/04/17 15:20 Glucose 125 mg/dL (70-105) H 06/04/17 15:20 Calcium 8.7 mg/dL (8.6-10.3) 06/04/17 15:20 Total Bilirubin 0.3 mg/dL (0.3-1.0) 06/04/17 15:20 AST 25 U/L (13-39) 06/04/17 15:20 ALT 19 U/L (7-52) 06/04/17 15:20 Alkaline Phosphatase 75 U/L (34-104) 06/04/17 15:20 Total Protein 6.5 gm/dL (6.0-8.3) 06/04/17 15:20 Albumin 3.8 gm/dL (4.2-5.5) L 06/04/17 15:20 Globulin 2.7 gm/dL 06/04/17 15:20 Albumin/Globulin Ratio 1.4 (1.0-1.8) 06/04/17 15:20 Triglycerides 169 mg/dL (<150) H 06/04/17 15:20 Cholesterol 157 mg/dL (<200) 06/04/17 15:20 LDL Cholesterol Direct 98 mg/dL (75-193) 06/04/17 15:20 HDL Cholesterol 46 mg/dL (23-92) 06/04/17 15:20 TSH 4.85 uIU/ml (0.34-5.60) 06/04/17 15:20 RPR NONREACTIVE (NONREACTIVE) 06/04/17 15:20 - Physical Exam Vitals and I&O: Vital Signs Temp 98.1 F 06/10/17 06:53 Pulse 74 06/10/17 10:56 Resp 20 01/09/18 06:53 BP 145/72 06/10/17 10:56 Pulse Ox 95 06/10/17 06:53 Intake & Output 06/09/17 06/10/17 06/10/17 18:59 06:59 18:59 Intake Total 1000 600 Balance 1000 600 Intake: Oral 1000 600 Other: # Voids 3 2 # Bowel Movements 0 Stool Characteristics Formed Active Medications: Current Medications Acetaminophen (Tylenol) 650 mg PO Q6H PRN PRN Reason: Mild Pain/Headache/T above 101 Stop: 08/04/17 02:15 Al Hydrox/Mg Hydrox/Simethicone (Maalox) 30 ml PO Q6H PRN PRN Reason: Dyspepsia Stop: 08/04/17 02:15 Atorvastatin Calcium (Lipitor) 20 mg PO DAILY FLORENTIN Stop: 08/04/17 08:59 Last Admin: 06/10/17 10:56 Dose: 20 mg Carvedilol (Coreg) 6.25 mg PO BID FLORENTIN Stop: 08/04/17 08:59 Last Admin: 06/10/17 10:56 Dose: 6.25 mg Donepezil HCl (Aricept) 5 mg PO HS FLORENTIN Stop: 08/03/17 20:59 Last Admin: 06/09/17 20:29 Dose: 5 mg Ibuprofen (Advil) 200 mg PO Q6HR FLORENTIN Stop: 08/04/17 00:00 Last Admin: 06/10/17 12:50 Dose: Not Given Levothyroxine Sodium (Synthroid) 0.075 mg PO QDAC FLORENTIN Stop: 08/04/17 07:29 Last Admin: 06/10/17 07:16 Dose: 0.075 mg Magnesium Hydroxide (Milk Of Magnesia) 30 ml PO HS PRN PRN Reason: Constipation Stop: 08/04/17 02:15 Memantine (Namenda) 5 mg PO DAILY FLORENTIN Stop: 08/05/17 08:59 Last Admin: 06/10/17 10:58 Dose: 5 mg Pantoprazole Sodium (Protonix) 40 mg PO DAILY FLORENTIN Stop: 08/04/17 08:59 Last Admin: 06/10/17 10:58 Dose: 40 mg Phenytoin (Dilantin) 100 mg PO BID FLORENTIN Stop: 08/04/17 08:59 Last Admin: 06/10/17 10:58 Dose: 100 mg Quetiapine Fumarate (Seroquel) 100 mg PO BID FLORENTIN PRN Reason: Protocol Stop: 08/04/17 08:59 Last Admin: 06/10/17 10:58 Dose: 100 mg Valproate Sodium (Depakene) 250 mg PO TID FLORENTIN PRN Reason: Protocol Stop: 08/03/17 20:59 Last Admin: 06/10/17 14:58 Dose: 250 mg Warfarin Sodium (Coumadin) 2.5 mg PO DAILY FLORENTIN PRN Reason: Protocol Stop: 08/04/17 08:59 Last Admin: 06/10/17 11:00 Dose: 2.5 mg Zolpidem Tartrate (Ambien) 5 mg PO HS PRN PRN Reason: Insomnia Stop: 08/04/17 02:15 Last Admin: 06/09/17 20:29 Dose: 5 mg General: No acute distress HEENT: Atraumatic, PERRLA Neck: Supple Cardiovascular: Regular rate, Normal S1, Normal S2 Lungs: Clear to auscultation Assessment/Plan - Problem List Patient Problems: All Active Problems Dementia (Acute) F03.90 GERD (gastroesophageal reflux disease) (Acute) K21.9 HTN (hypertension) (Acute) I10 History of transient ischemic attack (Acute) Hyperlipidemia (Acute) E78.5 Seizure (Acute) R56.9 - Plan Plan: as per order sheet Nutritional Asmnt/Malnutr-PDOC - Dietary Evaluation Malnutrition Findings (Please click <Entered> for more info): Nutritional Asmnt/Malnutrition Start: 06/09/17 15: 15 Text: Status: Complete Freq: Document 06/09/17 15:15 DARLINE (Rec: 06/09/17 15:32 [email or web address] [email or web address]) Nutritional Asmnt/Malnutrition Patient General Information Nutritional Screening Moderate Risk Diagnosis dementia with agitation Pertinent Medical Hx/Surgical Hx HTN, dyslipidemia, PUD/GERD, seizures, Thryoid disorder, dmentia, TIA Subjective Information Per nurse notes, pt is Micronesian speaking, orientated to self only, not able to provide food and drug interaction education at this time. Per EMR, PO intake 100% of all meals. Current Diet Order/ Nutrition Support [facility] soft ground, CIERRA, nectar Pertinent Medications synthroid, coumadin, seroquel Pertinent Labs 1/3 Glucose 125, Alb 3.8 Nutritional Hx/Data Height 1.75 m Height (Calculated Centimeters) 175.3 Current Weight (lbs) 81.647 kg Weight (Calculated Kilograms) 81.6 Weight (Calculated Grams) 16476.6 [place] Body Weight 160 % [place] Body Weight 113 Body Mass Index (BMI) 26.6 Weight Status Overweight GI Symptoms GI Symptoms None Last BM 06/08 Difficult in: None Skin Integrity/Comment: dryness Estimated Nutritional Goals BEE in Kcals: Using Current wt Calories/Kcals/Kg 23-27 Kcals Calculated 8458-6139 Protein: Using Current wt Protein g/k.8-1 Protein Calculated 66-82 Fluid: ml 5414-7165 Nutritional Problem No current Nutrition Prob Problem N/A Intervention/Recommendation Comments 1. Continue with current diet as ordered. 2. Monitor PO intake, wt, labs and skin integrity 3. F/U as low risk in 06/16 Expected Outcomes/Goals Expected Outcomes/Goals 1. PO intake to meet at least 75% of nutritional needs. 2. Wt stability, skin to remain intact, labs to approach WNL.
--- NOTE | 2017-06-11 03:52 | Progress Notes ---
DATE: 06/10/2017 The patient is in the hospital, confused. When I asked him where he is, he started to describe the building, he describes the windows and the doors and the doorsill. Remains still in a Cait chair, unpredictable behaviors, is banging at times on the Cait chair. Medications were reviewed. He seems to be tolerating well, but it is questionable whether the medications are helping him at this time. He remains on Seroquel 100 mg twice daily, Zyprexa 2.5 mg q.6 hours. He is on 2 antipsychotics at low dose. I will get rid of the Zyprexa and increase his Seroquel dosing to see if this helps with his behavioral disturbances. We will monitor and follow up. JOB# [id number]
[2017-06-11] MEDS: Levothyroxine 0.075 Mg Tab PO SCH (07:11)
--- NOTE | 2017-06-11 09:10 | General Progress Note ---
Subjective - Review of Systems Events since last encounter: in no distress still confused Objective - Results Result Diagrams: 06/04/17 15:20 06/04/17 15:20 Recent Labs: Laboratory Last Values WBC 6.0 Th/cmm (4.8-10.8) 06/04/17 15:20 RBC 4.73 Mil/cmm (3.80-5.80) 06/04/17 15:20 Hgb 14.2 gm/dL (12-16) 06/04/17 15:20 Hct 42.7 % (41.0-60) 06/04/17 15:20 MCV 90.2 fl (80-99) 06/04/17 15:20 MCH 30.1 pg (27.0-31.0) 06/04/17 15:20 MCHC Differential 33.3 pg (28.0-36.0) 06/04/17 15:20 RDW 13.4 % (11.5-20.0) 06/04/17 15:20 Plt Count 152 Th/cmm (150-400) 06/04/17 15:20 MPV 9.1 fl 06/04/17 15:20 Neutrophils % 62.4 % (40.0-80.0) 06/04/17 15:20 Lymphocytes % 22.3 % (20.0-50.0) 06/04/17 15:20 Monocytes % 8.7 % (2.0-10.0) 06/04/17 15:20 Eosinophils % 6.1 % (0.0-5.0) H 06/04/17 15:20 Basophils % 0.5 % (0.0-2.0) 06/04/17 15:20 PT 15.3 SECONDS (9.5-11.5) H 06/05/17 11:56 INR 1.44 (0.5-1.4) H 06/05/17 11:56 Sodium 137 mEq/L (136-145) 06/04/17 15:20 Potassium 4.5 mEq/L (3.5-5.1) 06/04/17 15:20 Chloride 104 mEq/L (98-107) 06/04/17 15:20 Carbon Dioxide 28.6 mEq/L (21.0-31.0) 06/04/17 15:20 Anion Gap 8.9 (7.0-16.0) 06/04/17 15:20 BUN 17 mg/dL (7-25) 06/04/17 15:20 Creatinine 0.9 mg/dL (0.7-1.3) 06/04/17 15:20 Est GFR ( Amer) > 60.0 ml/min (>90) 06/04/17 15:20 Est GFR (Non-Af Amer) > 60.0 ml/min 06/04/17 15:20 BUN/Creatinine Ratio 18.9 06/04/17 15:20 Glucose 125 mg/dL (70-105) H 06/04/17 15:20 Calcium 8.7 mg/dL (8.6-10.3) 06/04/17 15:20 Total Bilirubin 0.3 mg/dL (0.3-1.0) 06/04/17 15:20 AST 25 U/L (13-39) 06/04/17 15:20 ALT 19 U/L (7-52) 06/04/17 15:20 Alkaline Phosphatase 75 U/L (34-104) 06/04/17 15:20 Total Protein 6.5 gm/dL (6.0-8.3) 06/04/17 15:20 Albumin 3.8 gm/dL (4.2-5.5) L 06/04/17 15:20 Globulin 2.7 gm/dL 06/04/17 15:20 Albumin/Globulin Ratio 1.4 (1.0-1.8) 06/04/17 15:20 Triglycerides 169 mg/dL (<150) H 06/04/17 15:20 Cholesterol 157 mg/dL (<200) 06/04/17 15:20 LDL Cholesterol Direct 98 mg/dL (75-193) 06/04/17 15:20 HDL Cholesterol 46 mg/dL (23-92) 06/04/17 15:20 TSH 4.85 uIU/ml (0.34-5.60) 06/04/17 15:20 Valproic Acid 39.0 ug/mL (50.0-100.0) L 06/11/17 06:45 RPR NONREACTIVE (NONREACTIVE) 06/04/17 15:20 - Physical Exam Vitals and I&O: Vital Signs Temp 98.8 F 06/11/17 06:34 Pulse 74 06/11/17 06:34 Resp 19 06/11/17 06:34 BP 145/72 06/11/17 06:34 Pulse Ox 94 06/11/17 06:34 Intake & Output 06/10/17 06/11/17 06/11/17 18:59 06:59 18:59 Intake Total 2400 310 Balance 2400 310 Intake: Oral 2400 310 Other: # Voids 4 1 # Bowel Movements 0 1 Stool Characteristics Formed Soft Active Medications: Current Medications Acetaminophen (Tylenol) 650 mg PO Q6H PRN PRN Reason: Mild Pain/Headache/T above 101 Stop: 08/04/17 02:15 Al Hydrox/Mg Hydrox/Simethicone (Maalox) 30 ml PO Q6H PRN PRN Reason: Dyspepsia Stop: 08/04/17 02:15 Atorvastatin Calcium (Lipitor) 20 mg PO DAILY FLORENTIN Stop: 08/04/17 08:59 Last Admin: 06/10/17 10:56 Dose: 20 mg Carvedilol (Coreg) 6.25 mg PO BID FLORENTIN Stop: 08/04/17 08:59 Last Admin: 06/10/17 16:27 Dose: 6.25 mg Donepezil HCl (Aricept) 5 mg PO HS FLORENTIN Stop: 08/03/17 20:59 Last Admin: 06/10/17 21:30 Dose: 5 mg Ibuprofen (Advil) 200 mg PO Q6HR FLORENTIN Stop: 08/04/17 00:00 Last Admin: 06/11/17 06:00 Dose: 200 mg Levothyroxine Sodium (Synthroid) 0.075 mg PO QDAC FLORENTIN Stop: 08/04/17 07:29 Last Admin: 06/11/17 07:11 Dose: 0.075 mg Magnesium Hydroxide (Milk Of Magnesia) 30 ml PO HS PRN PRN Reason: Constipation Stop: 08/04/17 02:15 Memantine (Namenda) 5 mg PO DAILY FLORENTIN Stop: 08/05/17 08:59 Last Admin: 06/10/17 10:58 Dose: 5 mg Pantoprazole Sodium (Protonix) 40 mg PO DAILY FLORENTIN Stop: 08/04/17 08:59 Last Admin: 06/10/17 10:58 Dose: 40 mg Phenytoin (Dilantin) 100 mg PO BID FLORENTIN Stop: 08/04/17 08:59 Last Admin: 06/10/17 16:27 Dose: 100 mg Quetiapine Fumarate (Seroquel) 100 mg PO BID FLORENTIN PRN Reason: Protocol Stop: 08/04/17 08:59 Last Admin: 06/10/17 16:28 Dose: 100 mg Valproate Sodium (Depakene) 250 mg PO TID FLORENTIN PRN Reason: Protocol Stop: 08/03/17 20:59 Last Admin: 06/10/17 21:30 Dose: 250 mg Warfarin Sodium (Coumadin) 2.5 mg PO DAILY FLORENTIN PRN Reason: Protocol Stop: 08/04/17 08:59 Last Admin: 06/10/17 11:00 Dose: 2.5 mg Zolpidem Tartrate (Ambien) 5 mg PO HS PRN PRN Reason: Insomnia Stop: 08/04/17 02:15 Last Admin: 06/09/17 20:29 Dose: 5 mg General: No acute distress HEENT: Atraumatic, PERRLA Neck: Supple Cardiovascular: Regular rate, Normal S1, Normal S2 Lungs: Clear to auscultation Assessment/Plan - Problem List Patient Problems: All Active Problems Dementia (Acute) F03.90 GERD (gastroesophageal reflux disease) (Acute) K21.9 HTN (hypertension) (Acute) I10 History of transient ischemic attack (Acute) Hyperlipidemia (Acute) E78.5 Seizure (Acute) R56.9 - Plan Plan: as per order sheet Nutritional Asmnt/Malnutr-PDOC - Dietary Evaluation Malnutrition Findings (Please click <Entered> for more info): Nutritional Asmnt/Malnutrition Start: 06/09/17 15: 15 Text: Status: Complete Freq: Document 06/09/17 15:15 HENG (Rec: 06/09/17 15:32 [id number]) Nutritional Asmnt/Malnutrition Patient General Information Nutritional Screening Moderate Risk Diagnosis dementia with agitation Pertinent Medical Hx/Surgical Hx HTN, dyslipidemia, PUD/GERD, seizures, Thryoid disorder, dmentia, TIA Subjective Information Per nurse notes, pt is Monegasque speaking, orientated to self only, not able to provide food and drug interaction education at this time. Per EMR, PO intake 100% of all meals. Current Diet Order/ Nutrition Support [facility] soft ground, CIERRA, nectar Pertinent Medications synthroid, coumadin, seroquel Pertinent Labs 06/04 Glucose 125, Alb 3.8 Nutritional Hx/Data Height 1.75 m Height (Calculated Centimeters) 175.3 Current Weight (lbs) 81.647 kg Weight (Calculated Kilograms) 81.6 Weight (Calculated Grams) 55026.6 [place] Body Weight 160 % [place] Body Weight 113 Body Mass Index (BMI) 26.6 Weight Status Overweight GI Symptoms GI Symptoms None Last BM 06/08 Difficult in: None Skin Integrity/Comment: dryness Estimated Nutritional Goals BEE in Kcals: Using Current wt Calories/Kcals/Kg 23-27 Kcals Calculated 3012-9911 Protein: Using Current wt Protein g/k.8-1 Protein Calculated 66-82 Fluid: ml 0302-6188 Nutritional Problem No current Nutrition Prob Problem N/A Intervention/Recommendation Comments 1. Continue with current diet as ordered. 2. Monitor PO intake, wt, labs and skin integrity 3. F/U as low risk in 06/16 Expected Outcomes/Goals Expected Outcomes/Goals 1. PO intake to meet at least 75% of nutritional needs. 2. Wt stability, skin to remain intact, labs to approach WNL.
[2017-06-11] MEDS: Pantoprazole 40 mg EC Tab PO SCH (09:20)
[2017-06-11] MEDS: Atorvastatin Calcium 10 MG TAB PO SCH (09:22)
[2017-06-12] MEDS: Levothyroxine 0.075 Mg Tab PO SCH (06:44)
--- NOTE | 2017-06-12 08:39 | General Progress Note ---
Subjective - Review of Systems Events since last encounter: no distress Objective - Results Result Diagrams: 06/04/17 15:20 06/04/17 15:20 Recent Labs: Laboratory Last Values WBC 6.0 Th/cmm (4.8-10.8) 06/04/17 15:20 RBC 4.73 Mil/cmm (3.80-5.80) 06/04/17 15:20 Hgb 14.2 gm/dL (12-16) 06/04/17 15:20 Hct 42.7 % (41.0-60) 06/04/17 15:20 MCV 90.2 fl (80-99) 06/04/17 15:20 MCH 30.1 pg (27.0-31.0) 06/04/17 15:20 MCHC Differential 33.3 pg (28.0-36.0) 06/04/17 15:20 RDW 13.4 % (11.5-20.0) 06/04/17 15:20 Plt Count 152 Th/cmm (150-400) 06/04/17 15:20 MPV 9.1 fl 06/04/17 15:20 Neutrophils % 62.4 % (40.0-80.0) 06/04/17 15:20 Lymphocytes % 22.3 % (20.0-50.0) 06/04/17 15:20 Monocytes % 8.7 % (2.0-10.0) 06/04/17 15:20 Eosinophils % 6.1 % (0.0-5.0) H 06/04/17 15:20 Basophils % 0.5 % (0.0-2.0) 06/04/17 15:20 PT 15.3 SECONDS (9.5-11.5) H 06/05/17 11:56 INR 1.44 (0.5-1.4) H 06/05/17 11:56 Sodium 137 mEq/L (136-145) 06/04/17 15:20 Potassium 4.5 mEq/L (3.5-5.1) 06/04/17 15:20 Chloride 104 mEq/L (98-107) 06/04/17 15:20 Carbon Dioxide 28.6 mEq/L (21.0-31.0) 06/04/17 15:20 Anion Gap 8.9 (7.0-16.0) 06/04/17 15:20 BUN 17 mg/dL (7-25) 06/04/17 15:20 Creatinine 0.9 mg/dL (0.7-1.3) 06/04/17 15:20 Est GFR ( Amer) > 60.0 ml/min (>90) 06/04/17 15:20 Est GFR (Non-Af Amer) > 60.0 ml/min 06/04/17 15:20 BUN/Creatinine Ratio 18.9 06/04/17 15:20 Glucose 125 mg/dL (70-105) H 06/04/17 15:20 Calcium 8.7 mg/dL (8.6-10.3) 06/04/17 15:20 Total Bilirubin 0.3 mg/dL (0.3-1.0) 06/04/17 15:20 AST 25 U/L (13-39) 06/04/17 15:20 ALT 19 U/L (7-52) 06/04/17 15:20 Alkaline Phosphatase 75 U/L (34-104) 06/04/17 15:20 Total Protein 6.5 gm/dL (6.0-8.3) 06/04/17 15:20 Albumin 3.8 gm/dL (4.2-5.5) L 06/04/17 15:20 Globulin 2.7 gm/dL 06/04/17 15:20 Albumin/Globulin Ratio 1.4 (1.0-1.8) 06/04/17 15:20 Triglycerides 169 mg/dL (<150) H 06/04/17 15:20 Cholesterol 157 mg/dL (<200) 06/04/17 15:20 LDL Cholesterol Direct 98 mg/dL (75-193) 06/04/17 15:20 HDL Cholesterol 46 mg/dL (23-92) 06/04/17 15:20 TSH 4.85 uIU/ml (0.34-5.60) 06/04/17 15:20 Valproic Acid 39.0 ug/mL (50.0-100.0) L 06/11/17 06:45 RPR NONREACTIVE (NONREACTIVE) 06/04/17 15:20 - Physical Exam Vitals and I&O: Vital Signs Temp 98.6 F 06/12/17 06:38 Pulse 84 01/11/18 06:38 Resp 20 06/12/17 06:38 BP 136/73 06/12/17 06:38 Pulse Ox 97 06/12/17 06:38 Intake & Output 06/11/17 06/12/17 06/12/17 18:59 06:59 18:59 Intake Total 800 120 Balance 800 120 Intake: Oral 800 120 Other: # Voids 3 3 # Bowel Movements 1 Stool Characteristics Formed Active Medications: Current Medications Acetaminophen (Tylenol) 650 mg PO Q6H PRN PRN Reason: Mild Pain/Headache/T above 101 Stop: 08/04/17 02:15 Al Hydrox/Mg Hydrox/Simethicone (Maalox) 30 ml PO Q6H PRN PRN Reason: Dyspepsia Stop: 08/04/17 02:15 Atorvastatin Calcium (Lipitor) 20 mg PO DAILY [facility] Stop: 08/04/17 08:59 Last Admin: 06/11/17 09:22 Dose: 20 mg Carvedilol (Coreg) 6.25 mg PO BID [facility] Stop: 08/04/17 08:59 Last Admin: 06/11/17 16:18 Dose: 6.25 mg Donepezil HCl (Aricept) 5 mg PO HS [facility] Stop: 08/03/17 20:59 Last Admin: 06/11/17 21:11 Dose: 5 mg Ibuprofen (Advil) 200 mg PO Q6HR [facility] Stop: 08/04/17 00:00 Last Admin: 06/12/17 05:29 Dose: Not Given Levothyroxine Sodium (Synthroid) 0.075 mg PO QDAC [facility] Stop: 08/04/17 07:29 Last Admin: 06/12/17 06:44 Dose: 0.075 mg Magnesium Hydroxide (Milk Of Magnesia) 30 ml PO HS PRN PRN Reason: Constipation Stop: 08/04/17 02:15 Memantine (Namenda) 5 mg PO DAILY [facility] Stop: 08/05/17 08:59 Last Admin: 06/11/17 09:21 Dose: 5 mg Pantoprazole Sodium (Protonix) 40 mg PO DAILY [facility] Stop: 08/04/17 08:59 Last Admin: 06/11/17 09:20 Dose: 40 mg Phenytoin (Dilantin) 100 mg PO BID [facility] Stop: 08/04/17 08:59 Last Admin: 06/11/17 16:18 Dose: 100 mg Quetiapine Fumarate (Seroquel) 100 mg PO BID [facility] PRN Reason: Protocol Stop: 08/04/17 08:59 Last Admin: 06/11/17 16:18 Dose: 100 mg Valproate Sodium (Depakene) 250 mg PO TID [facility] PRN Reason: Protocol Stop: 08/03/17 20:59 Last Admin: 06/11/17 21:11 Dose: 250 mg Warfarin Sodium (Coumadin) 2.5 mg PO DAILY [facility] PRN Reason: Protocol Stop: 08/04/17 08:59 Last Admin: 06/11/17 09:21 Dose: 2.5 mg Zolpidem Tartrate (Ambien) 5 mg PO HS PRN PRN Reason: Insomnia Stop: 08/04/17 02:15 Last Admin: 06/09/17 20:29 Dose: 5 mg General: No acute distress HEENT: Atraumatic, PERRLA Neck: Supple Cardiovascular: Regular rate, Normal S1, Normal S2 Lungs: Clear to auscultation Assessment/Plan - Problem List Patient Problems: All Active Problems Dementia (Acute) F03.90 GERD (gastroesophageal reflux disease) (Acute) K21.9 HTN (hypertension) (Acute) I10 History of transient ischemic attack (Acute) Hyperlipidemia (Acute) E78.5 Seizure (Acute) R56.9 - Plan Plan: as per order sheet Nutritional Asmnt/Malnutr-PDOC - Dietary Evaluation Malnutrition Findings (Please click <Entered> for more info): Nutritional Asmnt/Malnutrition Start: 06/09/17 15: 15 Text: Status: Complete Freq: Document 06/09/17 15:15 HEN (Rec: 06/09/17 15:32 HEN [email or web address]) Nutritional Asmnt/Malnutrition Patient General Information Nutritional Screening Moderate Risk Diagnosis dementia with agitation Pertinent Medical Hx/Surgical Hx HTN, dyslipidemia, PUD/GERD, seizures, Thryoid disorder, dmentia, TIA Subjective Information Per nurse notes, pt is Kinyarw[place] speaking, orientated to self only, not able to provide food and drug interaction education at this time. Per EMR, PO intake 100% of all meals. Current Diet Order/ Nutrition Support [facility] soft ground, CIERRA, nectar Pertinent Medications synthroid, coumadin, seroquel Pertinent Labs 1/3 Glucose 125, Alb 3.8 Nutritional Hx/Data Height 1.75 m Height (Calculated Centimeters) 175.3 Current Weight (lbs) 81.647 kg Weight (Calculated Kilograms) 81.6 Weight (Calculated Grams) 14344.6 [place] Body Weight 160 % [place] Body Weight 113 Body Mass Index (BMI) 26.6 Weight Status Overweight GI Symptoms GI Symptoms None Last BM 06/08 Difficult in: None Skin Integrity/Comment: dryness Estimated Nutritional Goals BEE in Kcals: Using Current wt Calories/Kcals/Kg 23-27 Kcals Calculated 6009-6371 Protein: Using Current wt Protein g/k.8-1 Protein Calculated 66-82 Fluid: ml 4164-2848 Nutritional Problem No current Nutrition Prob Problem N/A Intervention/Recommendation Comments 1. Continue with current diet as ordered. 2. Monitor PO intake, wt, labs and skin integrity 3. F/U as low risk in 06/16 Expected Outcomes/Goals Expected Outcomes/Goals 1. PO intake to meet at least 75% of nutritional needs. 2. Wt stability, skin to remain intact, labs to approach WNL.
[2017-06-12] MEDS: Atorvastatin Calcium 10 MG TAB PO SCH (09:33)
[2017-06-12] MEDS: Pantoprazole 40 mg EC Tab PO SCH (09:34)
--- NOTE | 2017-06-12 15:26 | Progress Notes ---
DATE: 06/11/2017 SUBJECTIVE: Chart reviewed and the patient interviewed. Also, discussed the patient's condition with the staff and reviewed records and labs. The patient is still confused. The patient also is still having episodes of agitation and irritability. He also is still actively hallucinating and talking to himself. The patient also still needs lots of directions and he is still forgetful and have difficult to carry on coherent conversation during interview. Also, personal hygiene is still poor. ASSESSMENT: The patient is still confused and psychotic. TREATMENT PLAN: Continue to monitor his behavior and his condition closely. The patient also continued to take Seroquel in a dose of 25 mg twice a day and 50 mg at bedtime. We will increase Namenda to 5 mg twice a day and continue Aricept 5 mg at the time and will continue to monitor his behavior and his condition closely. ESTIMATED LENGTH OF STAY: 2-4 days REASON FOR CONTINUED HOSPITAL STAY: The patient is still psychotic and is still agitated. [facility]# [id number]
--- NOTE | 2017-06-13 00:58 | Progress Notes ---
DATE: 06/12/2017 SUBJECTIVE: Chart reviewed and the patient interviewed. Also, discussed the patient's condition with the staff and reviewed records and labs. The patient is less agitated and less irritable. Also, seems to be slightly less suspicious and less paranoid. Also, is interacting more with peers and with others. The patient also denies any intention to harm himself or others. Still needs close monitoring and needs redirections. Otherwise, the patient is compliant with taking his medications. ASSESSMENT: The patient is showing some improvement. TREATMENT PLAN: We will continue to monitor his behavior and his condition and will continue to work on his discharge plans and it seems that rn case mgr is not able to find a placement for the patient yet. JOB# [id number]
[2017-06-13] MEDS: Levothyroxine 0.075 Mg Tab PO SCH (06:36)
[2017-06-13] MEDS: Pantoprazole 40 mg EC Tab PO SCH (09:29)
[2017-06-13] MEDS: Atorvastatin Calcium 10 MG TAB PO SCH (09:29)
[2017-06-13 09:41] LABS: INR 2.05 (0.5-1.4); PROTHROMBIN TIME (TEST) 22.1 SECONDS (9.5-11.5)
--- NOTE | 2017-06-13 20:48 | Internal Medicine Prog Note ---
Internal Medicine Subjective - Subjective Service Date: 06/13/17 Patient is:: awake Per staff patient has:: no adverse event Internal Medicine Objective - Results Result Diagrams: 06/04/17 15:20 06/04/17 15:20 Recent Labs: Laboratory Last Values WBC 6.0 Th/cmm (4.8-10.8) 06/04/17 15:20 RBC 4.73 Mil/cmm (3.80-5.80) 06/04/17 15:20 Hgb 14.2 gm/dL (12-16) 06/04/17 15:20 Hct 42.7 % (41.0-60) 06/04/17 15:20 MCV 90.2 fl (80-99) 06/04/17 15:20 MCH 30.1 pg (27.0-31.0) 06/04/17 15:20 MCHC Differential 33.3 pg (28.0-36.0) 06/04/17 15:20 RDW 13.4 % (11.5-20.0) 06/04/17 15:20 Plt Count 152 Th/cmm (150-400) 06/04/17 15:20 MPV 9.1 fl 06/04/17 15:20 Neutrophils % 62.4 % (40.0-80.0) 06/04/17 15:20 Lymphocytes % 22.3 % (20.0-50.0) 06/04/17 15:20 Monocytes % 8.7 % (2.0-10.0) 06/04/17 15:20 Eosinophils % 6.1 % (0.0-5.0) H 06/04/17 15:20 Basophils % 0.5 % (0.0-2.0) 06/04/17 15:20 PT 22.1 SECONDS (9.5-11.5) H 06/13/17 09:00 INR 2.05 (0.5-1.4) H 06/13/17 09:00 Sodium 137 mEq/L (136-145) 06/04/17 15:20 Potassium 4.5 mEq/L (3.5-5.1) 06/04/17 15:20 Chloride 104 mEq/L (98-107) 06/04/17 15:20 Carbon Dioxide 28.6 mEq/L (21.0-31.0) 06/04/17 15:20 Anion Gap 8.9 (7.0-16.0) 06/04/17 15:20 BUN 17 mg/dL (7-25) 06/04/17 15:20 Creatinine 0.9 mg/dL (0.7-1.3) 06/04/17 15:20 Est GFR ( Amer) > 60.0 ml/min (>90) 06/04/17 15:20 Est GFR (Non-Af Amer) > 60.0 ml/min 06/04/17 15:20 BUN/Creatinine Ratio 18.9 06/04/17 15:20 Glucose 125 mg/dL (70-105) H 06/04/17 15:20 Calcium 8.7 mg/dL (8.6-10.3) 06/04/17 15:20 Total Bilirubin 0.3 mg/dL (0.3-1.0) 06/04/17 15:20 AST 25 U/L (13-39) 06/04/17 15:20 ALT 19 U/L (7-52) 06/04/17 15:20 Alkaline Phosphatase 75 U/L (34-104) 06/04/17 15:20 Total Protein 6.5 gm/dL (6.0-8.3) 06/04/17 15:20 Albumin 3.8 gm/dL (4.2-5.5) L 06/04/17 15:20 Globulin 2.7 gm/dL 06/04/17 15:20 Albumin/Globulin Ratio 1.4 (1.0-1.8) 06/04/17 15:20 Triglycerides 169 mg/dL (<150) H 06/04/17 15:20 Cholesterol 157 mg/dL (<200) 06/04/17 15:20 LDL Cholesterol Direct 98 mg/dL (75-193) 06/04/17 15:20 HDL Cholesterol 46 mg/dL (23-92) 06/04/17 15:20 TSH 4.85 uIU/ml (0.34-5.60) 06/04/17 15:20 Valproic Acid 39.0 ug/mL (50.0-100.0) L 06/11/17 06:45 RPR NONREACTIVE (NONREACTIVE) 06/04/17 15:20 - Physical Exam Vitals and I&O: Vital Signs Temp 97.9 F 06/13/17 20:26 Pulse 68 06/13/17 20:26 Resp 19 06/13/17 20:26 BP 138/66 06/13/17 20:26 Pulse Ox 97 06/13/17 20:26 Intake & Output 06/13/17 06/13/17 06/14/17 06:59 18:59 06:59 Intake Total 1200 240 Balance 1200 240 Intake: Oral 1200 240 Other: # Voids 4 1 Stool Characteristics Formed Formed Active Medications: Current Medications Acetaminophen (Tylenol) 650 mg PO Q6H PRN PRN Reason: Mild Pain/Headache/T above 101 Stop: 08/04/17 02:15 Al Hydrox/Mg Hydrox/Simethicone (Maalox) 30 ml PO Q6H PRN PRN Reason: Dyspepsia Stop: 08/04/17 02:15 Atorvastatin Calcium (Lipitor) 20 mg PO DAILY [facility] BEDS AT [facility] Stop: 08/04/17 08:59 Last Admin: 06/13/17 09:29 Dose: 20 mg Carvedilol (Coreg) 6.25 mg PO BID [facility] Stop: 08/04/17 08:59 Last Admin: 06/13/17 16:21 Dose: 6.25 mg Donepezil HCl (Aricept) 5 mg PO HS [facility] Stop: 08/03/17 20:59 Last Admin: 06/13/17 20:33 Dose: 5 mg Ibuprofen (Advil) 200 mg PO Q6HR [facility] Stop: 08/04/17 00:00 Last Admin: 06/13/17 06:07 Dose: 200 mg Levothyroxine Sodium (Synthroid) 0.075 mg PO QDAC [facility] Stop: 08/04/17 07:29 Last Admin: 06/13/17 06:36 Dose: 0.075 mg Magnesium Hydroxide (Milk Of Magnesia) 30 ml PO HS PRN PRN Reason: Constipation Stop: 08/04/17 02:15 Memantine (Namenda) 5 mg PO DAILY [facility]S [facility]CLUDE 234 BEDS AT [facility] Stop: 08/05/17 08:59 Last Admin: 06/13/17 09:29 Dose: 5 mg Pantoprazole Sodium (Protonix) 40 mg PO DAILY [facility] Stop: 08/04/17 08:59 Last Admin: 06/13/17 09:29 Dose: 40 mg Phenytoin (Dilantin) 100 mg PO BID [facility] 234 BEDS AT [facility] Stop: 08/04/17 08:59 Last Admin: 06/13/17 16:21 Dose: 100 mg Quetiapine Fumarate (Seroquel) 100 mg PO BID [facility] 234 BEDS AT [facility] PRN Reason: Protocol Stop: 08/04/17 08:59 Last Admin: 06/13/17 16:21 Dose: 100 mg Valproate Sodium (Depakene) 250 mg PO TID [facility]S [facility]CLUDE 234 BEDS AT [facility] PRN Reason: Protocol Stop: 08/03/17 20:59 Last Admin: 06/13/17 20:46 Dose: 250 mg Warfarin Sodium (Coumadin Per Pharmacy) 1 ea [facility] PRN PRN PRN Reason: RX TO DOSE Stop: 08/12/17 15:04 Warfarin Sodium (Coumadin) 2.5 mg PO DAILY@1300 COUNTS INCLUDE 234 BEDS AT THE [facility] Stop: 06/14/17 13:01 General: alert HEENT: NC/AT, PERRLA Neck: Supple Lungs: CTAB Cardiovascular: RRR, Normal S1, Normal S2, without murmur, with murmur Abdomen: soft, non-tender, non-distended, positive bowel sound Neurological: no change Internal Medicine Assmt/Plan - Assessment Assessment: HTN Dyslipidemia PUD/GERD Seizures Thyroid disorder Dementia, hyperlipidemia hx transient ischemic attack) - Plan Plan: seizure precautions adjust bp meds accordingly continue current plan of care Nutritional Asmnt/Malnutr-PDOC - Dietary Evaluation Malnutrition Findings (Please click <Entered> for more info): Nutritional Asmnt/Malnutrition Start: 06/09/17 15: 15 Text: Status: Complete Freq: Document 06/09/17 15:15 CELI (Rec: 06/09/17 15:32 [email or web address] Nutritional Asmnt/Malnutrition Patient General Information Nutritional Screening Moderate Risk Diagnosis dementia with agitation Pertinent Medical Hx/Surgical Hx HTN, dyslipidemia, PUD/GERD, seizures, Thryoid disorder, dmentia, TIA Subjective Information Per nurse notes, pt is Palau[place] speaking, orientated to self only, not able to provide food and drug interaction education at this time. Per EMR, PO intake 100% of all meals. Current Diet Order/ Nutrition Support [facility] soft ground, CIERRA, nectar Pertinent Medications synthroid, coumadin, seroquel Pertinent Labs 1/3 Glucose 125, Alb 3.8 Nutritional Hx/Data Height 5 ft 9 in Height (Calculated Centimeters) 175.3 Current Weight (lbs) 180 lb Weight (Calculated Kilograms) 81.6 Weight (Calculated Grams) 63021.6 [place] Body Weight 160 % [place] Body Weight 113 Body Mass Index (BMI) 26.6 Weight Status Overweight GI Symptoms GI Symptoms None Last BM 06/08 Difficult in: None Skin Integrity/Comment: dryness Estimated Nutritional Goals BEE in Kcals: Using Current wt Calories/Kcals/Kg 23-27 Kcals Calculated 3555-7639 Protein: Using Current wt Protein g/k.8-1 Protein Calculated 66-82 Fluid: ml 7291-5647 Nutritional Problem No current Nutrition Prob Problem N/A Intervention/Recommendation Comments 1. Continue with current diet as ordered. 2. Monitor PO intake, wt, labs and skin integrity 3. F/U as low risk in 06/16 Expected Outcomes/Goals Expected Outcomes/Goals 1. PO intake to meet at least 75% of nutritional needs. 2. Wt stability, skin to remain intact, labs to approach WNL.
[2017-06-14] MEDS: Levothyroxine 0.075 Mg Tab PO SCH (06:53)
[2017-06-14 07:46] LABS: INR 1.64 (0.5-1.4); PROTHROMBIN TIME (TEST) 17.5 SECONDS (9.5-11.5)
[2017-06-14] MEDS: Atorvastatin Calcium 10 MG TAB PO SCH (09:30)
[2017-06-14] MEDS: Pantoprazole 40 mg EC Tab PO SCH (09:31)
--- NOTE | 2017-06-14 18:39 | Progress Notes ---
DATE: 06/14/2017 SUBJECTIVE: The patient was seen, chart reviewed and discussed with staff. The patient continues to be irritable and agitated, intrusive and paranoid; however, he has been less isolative, has been compliant with medications and has generally been redirectable. Currently, denying any undue side effects. PLAN: The patient continues to be actively psychotic, unpredictable, so that he will require inpatient care center treatment. We will monitor patient on a daily basis and titrate as needed and will closely with test case developer regarding his placement on discharge. JOB# [id number]
[2017-06-15] MEDS: Levothyroxine 0.075 Mg Tab PO SCH (06:42)
[2017-06-15] MEDS: Atorvastatin Calcium 10 MG TAB PO SCH (08:36)
[2017-06-15] MEDS: Pantoprazole 40 mg EC Tab PO SCH (08:36)
[2017-06-15 09:10] LABS: INR 1.36 (0.5-1.4); PROTHROMBIN TIME (TEST) 14.4 SECONDS (9.5-11.5)
--- NOTE | 2017-06-15 11:16 | General Progress Note ---
Subjective - Review of Systems Events since last encounter: continues to be irritable and agitated otherwise in no distress Objective - Results Result Diagrams: 06/04/17 15:20 06/04/17 15:20 Recent Labs: Laboratory Last Values WBC 6.0 Th/cmm (4.8-10.8) 06/04/17 15:20 RBC 4.73 Mil/cmm (3.80-5.80) 06/04/17 15:20 Hgb 14.2 gm/dL (12-16) 06/04/17 15:20 Hct 42.7 % (41.0-60) 06/04/17 15:20 MCV 90.2 fl (80-99) 06/04/17 15:20 MCH 30.1 pg (27.0-31.0) 06/04/17 15:20 MCHC Differential 33.3 pg (28.0-36.0) 06/04/17 15:20 RDW 13.4 % (11.5-20.0) 06/04/17 15:20 Plt Count 152 Th/cmm (150-400) 06/04/17 15:20 MPV 9.1 fl 06/04/17 15:20 Neutrophils % 62.4 % (40.0-80.0) 06/04/17 15:20 Lymphocytes % 22.3 % (20.0-50.0) 06/04/17 15:20 Monocytes % 8.7 % (2.0-10.0) 06/04/17 15:20 Eosinophils % 6.1 % (0.0-5.0) H 06/04/17 15:20 Basophils % 0.5 % (0.0-2.0) 06/04/17 15:20 PT 14.4 SECONDS (9.5-11.5) H 06/15/17 08:00 INR 1.36 (0.5-1.4) 06/15/17 08:00 PTT (Actin FS) 27.9 SECONDS (26.0-38.0) 06/15/17 08:00 Sodium 137 mEq/L (136-145) 06/04/17 15:20 Potassium 4.5 mEq/L (3.5-5.1) 06/04/17 15:20 Chloride 104 mEq/L (98-107) 06/04/17 15:20 Carbon Dioxide 28.6 mEq/L (21.0-31.0) 06/04/17 15:20 Anion Gap 8.9 (7.0-16.0) 06/04/17 15:20 BUN 17 mg/dL (7-25) 06/04/17 15:20 Creatinine 0.9 mg/dL (0.7-1.3) 06/04/17 15:20 Est GFR ( Amer) > 60.0 ml/min (>90) 06/04/17 15:20 Est GFR (Non-Af Amer) > 60.0 ml/min 06/04/17 15:20 BUN/Creatinine Ratio 18.9 06/04/17 15:20 Glucose 125 mg/dL (70-105) H 06/04/17 15:20 Calcium 8.7 mg/dL (8.6-10.3) 06/04/17 15:20 Total Bilirubin 0.3 mg/dL (0.3-1.0) 06/04/17 15:20 AST 25 U/L (13-39) 06/04/17 15:20 ALT 19 U/L (7-52) 06/04/17 15:20 Alkaline Phosphatase 75 U/L (34-104) 06/04/17 15:20 Total Protein 6.5 gm/dL (6.0-8.3) 06/04/17 15:20 Albumin 3.8 gm/dL (4.2-5.5) L 06/04/17 15:20 Globulin 2.7 gm/dL 06/04/17 15:20 Albumin/Globulin Ratio 1.4 (1.0-1.8) 06/04/17 15:20 Triglycerides 169 mg/dL (<150) H 06/04/17 15:20 Cholesterol 157 mg/dL (<200) 06/04/17 15:20 LDL Cholesterol Direct 98 mg/dL (75-193) 06/04/17 15:20 HDL Cholesterol 46 mg/dL (23-92) 06/04/17 15:20 TSH 4.85 uIU/ml (0.34-5.60) 06/04/17 15:20 Valproic Acid 39.0 ug/mL (50.0-100.0) L 06/11/17 06:45 RPR NONREACTIVE (NONREACTIVE) 06/04/17 15:20 - Physical Exam Vitals and I&O: Vital Signs Temp 97.2 F 06/15/17 06:36 Pulse 78 06/15/17 08:37 Resp 20 06/15/17 06:36 BP 147/68 06/15/17 08:37 Pulse Ox 98 06/15/17 06:36 Intake & Output 06/14/17 06/15/17 06/15/17 18:59 06:59 18:59 Intake Total 120 Balance 120 Intake: Oral 120 Other: # Voids 3 Stool Characteristics Formed Formed Active Medications: Current Medications Acetaminophen (Tylenol) 650 mg PO Q6H PRN PRN Reason: Mild Pain/Headache/T above 101 Stop: 08/04/17 02:15 Al Hydrox/Mg Hydrox/Simethicone (Maalox) 30 ml PO Q6H PRN PRN Reason: Dyspepsia Stop: 08/04/17 02:15 Atorvastatin Calcium (Lipitor) 20 mg PO DAILY [facility] Stop: 08/04/17 08:59 Last Admin: 06/15/17 08:36 Dose: 20 mg Carvedilol (Coreg) 6.25 mg PO BID [facility] Stop: 08/04/17 08:59 Last Admin: 06/15/17 08:37 Dose: 6.25 mg Donepezil HCl (Aricept) 5 mg PO HS [facility] Stop: 08/03/17 20:59 Last Admin: 06/14/17 21:10 Dose: 5 mg Ibuprofen (Advil) 200 mg PO Q6HR [facility] Stop: 08/04/17 00:00 Last Admin: 06/15/17 06:47 Dose: 200 mg Levothyroxine Sodium (Synthroid) 0.075 mg PO QDAC [facility] Stop: 08/04/17 07:29 Last Admin: 06/15/17 06:42 Dose: 0.075 mg Magnesium Hydroxide (Milk Of Magnesia) 30 ml PO HS PRN PRN Reason: Constipation Stop: 08/04/17 02:15 Memantine (Namenda) 5 mg PO DAILY [facility] Stop: 08/05/17 08:59 Last Admin: 06/15/17 08:37 Dose: 5 mg Pantoprazole Sodium (Protonix) 40 mg PO DAILY [facility] Stop: 08/04/17 08:59 Last Admin: 06/15/17 08:36 Dose: 40 mg Phenytoin (Dilantin) 100 mg PO BID [facility] Stop: 08/04/17 08:59 Last Admin: 06/15/17 08:37 Dose: 100 mg Quetiapine Fumarate (Seroquel) 100 mg PO BID [facility] PRN Reason: Protocol Stop: 08/04/17 08:59 Last Admin: 06/15/17 08:37 Dose: 100 mg Valproate Sodium (Depakene) 250 mg PO TID [facility] PRN Reason: Protocol Stop: 08/03/17 20:59 Last Admin: 06/15/17 08:36 Dose: 250 mg Warfarin Sodium (Coumadin Per Pharmacy) 1 ea [facility] PRN PRN PRN Reason: RX TO DOSE Stop: 08/12/17 15:04 Warfarin Sodium (Coumadin) 3 mg PO 1300 ONE Stop: 06/15/17 13:01 General: No acute distress HEENT: Atraumatic, PERRLA Neck: Supple Cardiovascular: Regular rate, Normal S1, Normal S2 Lungs: Clear to auscultation Assessment/Plan - Problem List Patient Problems: All Active Problems Dementia (Acute) F03.90 GERD (gastroesophageal reflux disease) (Acute) K21.9 HTN (hypertension) (Acute) I10 History of transient ischemic attack (Acute) Hyperlipidemia (Acute) E78.5 Seizure (Acute) R56.9 - Plan Plan: as per order sheet Nutritional Asmnt/Malnutr-PDOC - Dietary Evaluation Malnutrition Findings (Please click <Entered> for more info): Nutritional Asmnt/Malnutrition Start: 06/09/17 15: 15 Text: Status: Complete Freq: Document 06/09/17 15:15 DARLINE (Rec: 06/09/17 15:32 HEN [email or web address]) Nutritional Asmnt/Malnutrition Patient General Information Nutritional Screening Moderate Risk Diagnosis dementia with agitation Pertinent Medical Hx/Surgical Hx HTN, dyslipidemia, PUD/GERD, seizures, Thryoid disorder, dmentia, TIA Subjective Information Per nurse notes, pt is Panamanian speaking, orientated to self only, not able to provide food and drug interaction education at this time. Per EMR, PO intake 100% of all meals. Current Diet Order/ Nutrition Support [place] soft ground, CIERRA, nectar Pertinent Medications synthroid, coumadin, seroquel Pertinent Labs 06/04 Glucose 125, Alb 3.8 Nutritional Hx/Data Height 1.75 m Height (Calculated Centimeters) 175.3 Current Weight (lbs) 81.647 kg Weight (Calculated Kilograms) 81.6 Weight (Calculated Grams) 28656.6 [place] Body Weight 160 % [place] Body Weight 113 Body Mass Index (BMI) 26.6 Weight Status Overweight GI Symptoms GI Symptoms None Last BM 06/08 Difficult in: None Skin Integrity/Comment: dryness Estimated Nutritional Goals BEE in Kcals: Using Current wt Calories/Kcals/Kg 23-27 Kcals Calculated 9951-8254 Protein: Using Current wt Protein g/k.8-1 Protein Calculated 66-82 Fluid: ml 7422-0028 Nutritional Problem No current Nutrition Prob Problem N/A Intervention/Recommendation Comments 1. Continue with current diet as ordered. 2. Monitor PO intake, wt, labs and skin integrity 3. F/U as low risk in 06/16 Expected Outcomes/Goals Expected Outcomes/Goals 1. PO intake to meet at least 75% of nutritional needs. 2. Wt stability, skin to remain intact, labs to approach WNL.
[2017-06-16] MEDS: Levothyroxine 0.075 Mg Tab PO SCH (06:53)
[2017-06-16] MEDS: Atorvastatin Calcium 10 MG TAB PO SCH (09:33)
[2017-06-16] MEDS: Pantoprazole 40 mg EC Tab PO SCH (09:33)
--- NOTE | 2017-06-16 12:42 | General Progress Note ---
Subjective - Review of Systems Events since last encounter: still irritable in no distress Objective - Results Result Diagrams: 06/04/17 15:20 06/04/17 15:20 Recent Labs: Laboratory Last Values WBC 6.0 Th/cmm (4.8-10.8) 06/04/17 15:20 RBC 4.73 Mil/cmm (3.80-5.80) 06/04/17 15:20 Hgb 14.2 gm/dL (12-16) 06/04/17 15:20 Hct 42.7 % (41.0-60) 06/04/17 15:20 MCV 90.2 fl (80-99) 06/04/17 15:20 MCH 30.1 pg (27.0-31.0) 06/04/17 15:20 MCHC Differential 33.3 pg (28.0-36.0) 06/04/17 15:20 RDW 13.4 % (11.5-20.0) 06/04/17 15:20 Plt Count 152 Th/cmm (150-400) 06/04/17 15:20 MPV 9.1 fl 06/04/17 15:20 Neutrophils % 62.4 % (40.0-80.0) 06/04/17 15:20 Lymphocytes % 22.3 % (20.0-50.0) 06/04/17 15:20 Monocytes % 8.7 % (2.0-10.0) 06/04/17 15:20 Eosinophils % 6.1 % (0.0-5.0) H 06/04/17 15:20 Basophils % 0.5 % (0.0-2.0) 06/04/17 15:20 PT 17.7 SECONDS (9.5-11.5) H 06/16/17 09:15 INR 1.66 (0.5-1.4) H 06/16/17 09:15 PTT (Actin FS) 27.6 SECONDS (26.0-38.0) 06/16/17 09:15 Sodium 137 mEq/L (136-145) 06/04/17 15:20 Potassium 4.5 mEq/L (3.5-5.1) 06/04/17 15:20 Chloride 104 mEq/L (98-107) 06/04/17 15:20 Carbon Dioxide 28.6 mEq/L (21.0-31.0) 06/04/17 15:20 Anion Gap 8.9 (7.0-16.0) 06/04/17 15:20 BUN 17 mg/dL (7-25) 06/04/17 15:20 Creatinine 0.9 mg/dL (0.7-1.3) 06/04/17 15:20 Est GFR ( Amer) > 60.0 ml/min (>90) 06/04/17 15:20 Est GFR (Non-Af Amer) > 60.0 ml/min 06/04/17 15:20 BUN/Creatinine Ratio 18.9 06/04/17 15:20 Glucose 125 mg/dL (70-105) H 06/04/17 15:20 Calcium 8.7 mg/dL (8.6-10.3) 06/04/17 15:20 Total Bilirubin 0.3 mg/dL (0.3-1.0) 06/04/17 15:20 AST 25 U/L (13-39) 06/04/17 15:20 ALT 19 U/L (7-52) 06/04/17 15:20 Alkaline Phosphatase 75 U/L (34-104) 06/04/17 15:20 Total Protein 6.5 gm/dL (6.0-8.3) 06/04/17 15:20 Albumin 3.8 gm/dL (4.2-5.5) L 06/04/17 15:20 Globulin 2.7 gm/dL 06/04/17 15:20 Albumin/Globulin Ratio 1.4 (1.0-1.8) 06/04/17 15:20 Triglycerides 169 mg/dL (<150) H 06/04/17 15:20 Cholesterol 157 mg/dL (<200) 06/04/17 15:20 LDL Cholesterol Direct 98 mg/dL (75-193) 06/04/17 15:20 HDL Cholesterol 46 mg/dL (23-92) 06/04/17 15:20 TSH 4.85 uIU/ml (0.34-5.60) 06/04/17 15:20 Valproic Acid 39.0 ug/mL (50.0-100.0) L 06/11/17 06:45 RPR NONREACTIVE (NONREACTIVE) 06/04/17 15:20 - Physical Exam Vitals and I&O: Vital Signs Temp 97.8 F 06/16/17 05:36 Pulse 94 06/16/17 09:34 Resp 20 06/16/17 05:36 BP 124/77 06/16/17 09:34 Pulse Ox 97 06/16/17 05:36 Intake & Output 06/15/17 06/16/17 06/16/17 18:59 06:59 18:59 Intake Total 800 120 Balance 800 120 Intake: Oral 800 120 Other: # Voids 3 3 # Bowel Movements 1 0 Stool Characteristics Formed Formed Formed Active Medications: Current Medications Acetaminophen (Tylenol) 650 mg PO Q6H PRN PRN Reason: Mild Pain/Headache/T above 101 Stop: 08/04/17 02:15 Al Hydrox/Mg Hydrox/Simethicone (Maalox) 30 ml PO Q6H PRN PRN Reason: Dyspepsia Stop: 08/04/17 02:15 Atorvastatin Calcium (Lipitor) 20 mg PO DAILY [facility] Stop: 08/04/17 08:59 Last Admin: 06/16/17 09:33 Dose: 20 mg Carvedilol (Coreg) 6.25 mg PO BID [facility] Stop: 08/04/17 08:59 Last Admin: 06/16/17 09:34 Dose: 6.25 mg Donepezil HCl (Aricept) 5 mg PO HS [facility] Stop: 08/03/17 20:59 Last Admin: 06/15/17 20:45 Dose: 5 mg Ibuprofen (Advil) 200 mg PO Q6HR [facility] Stop: 08/04/17 00:00 Last Admin: 06/16/17 12:18 Dose: 200 mg Levothyroxine Sodium (Synthroid) 0.075 mg PO QDAC [facility] Stop: 08/04/17 07:29 Last Admin: 06/16/17 06:53 Dose: 0.075 mg Magnesium Hydroxide (Milk Of Magnesia) 30 ml PO HS PRN PRN Reason: Constipation Stop: 08/04/17 02:15 Memantine (Namenda) 5 mg PO DAILY [facility] Stop: 08/05/17 08:59 Last Admin: 06/16/17 09:34 Dose: 5 mg Pantoprazole Sodium (Protonix) 40 mg PO DAILY [facility] Stop: 08/04/17 08:59 Last Admin: 06/16/17 09:33 Dose: 40 mg Phenytoin (Dilantin) 100 mg PO BID [facility] Stop: 08/04/17 08:59 Last Admin: 06/16/17 09:33 Dose: 100 mg Quetiapine Fumarate (Seroquel) 100 mg PO BID [facility] PRN Reason: Protocol Stop: 08/04/17 08:59 Last Admin: 06/16/17 09:33 Dose: 100 mg Valproate Sodium (Depakene) 250 mg PO TID [facility] PRN Reason: Protocol Stop: 08/03/17 20:59 Last Admin: 06/16/17 09:33 Dose: 250 mg Warfarin Sodium (Coumadin Per Pharmacy) 1 ea [facility] PRN PRN PRN Reason: RX TO DOSE Stop: 08/12/17 15:04 Warfarin Sodium (Coumadin) 3 mg PO ONCE ONE Stop: 06/16/17 13:01 General: No acute distress HEENT: Atraumatic, PERRLA Neck: Supple Cardiovascular: Regular rate, Normal S1, Normal S2 Lungs: Clear to auscultation Assessment/Plan - Problem List Patient Problems: All Active Problems Dementia (Acute) F03.90 GERD (gastroesophageal reflux disease) (Acute) K21.9 HTN (hypertension) (Acute) I10 History of transient ischemic attack (Acute) Hyperlipidemia (Acute) E78.5 Seizure (Acute) R56.9 - Plan Plan: as per order sheet Nutritional Asmnt/Malnutr-PDOC - Dietary Evaluation Malnutrition Findings (Please click <Entered> for more info): Nutritional Asmnt/Malnutrition Start: 06/09/17 15: 15 Text: Status: Complete Freq: Document 06/09/17 15:15 [facility] (Rec: 06/09/17 15:32 HEN [email or web address]) Nutritional Asmnt/Malnutrition Patient General Information Nutritional Screening Moderate Risk Diagnosis dementia with agitation Pertinent Medical Hx/Surgical Hx HTN, dyslipidemia, PUD/GERD, seizures, Thryoid disorder, dmentia, TIA Subjective Information Per nurse notes, pt is Central African speaking, orientated to self only, not able to provide food and drug interaction education at this time. Per EMR, PO intake 100% of all meals. Current Diet Order/ Nutrition Support [facility] soft ground, CIERRA, nectar Pertinent Medications synthroid, coumadin, seroquel Pertinent Labs 1/3 Glucose 125, Alb 3.8 Nutritional Hx/Data Height 1.75 m Height (Calculated Centimeters) 175.3 Current Weight (lbs) 81.647 kg Weight (Calculated Kilograms) 81.6 Weight (Calculated Grams) 12323.6 [place] Body Weight 160 % [place] Body Weight 113 Body Mass Index (BMI) 26.6 Weight Status Overweight GI Symptoms GI Symptoms None Last BM 06/08 Difficult in: None Skin Integrity/Comment: dryness Estimated Nutritional Goals BEE in Kcals: Using Current wt Calories/Kcals/Kg 23-27 Kcals Calculated 2905-9415 Protein: Using Current wt Protein g/k.8-1 Protein Calculated 66-82 Fluid: ml 2707-3456 Nutritional Problem No current Nutrition Prob Problem N/A Intervention/Recommendation Comments 1. Continue with current diet as ordered. 2. Monitor PO intake, wt, labs and skin integrity 3. F/U as low risk in 06/16 Expected Outcomes/Goals Expected Outcomes/Goals 1. PO intake to meet at least 75% of nutritional needs. 2. Wt stability, skin to remain intact, labs to approach WNL.
[2017-06-16 16:06] LABS: INR 1.64 (0.5-1.4); PROTHROMBIN TIME (TEST) 17.7 SECONDS (9.5-11.5)
--- NOTE | 2017-06-16 19:50 | Progress Notes ---
DATE: 06/16/[address] Rubin. Case was discussed with staff of the patient, reviewed records. He is a 71-year-old male who was admitted because of psychosis, aggressive behavior, worsening confusion. The patient is demented, poor historian. He is unpredictable, impulsive, needing redirection, has been compliant with the medication with no side effects, no sedation, no nausea, no extrapyramidal symptoms. He is on Aricept 5 mg at bedtime. He is on levothyroxine 0.075 mcg daily and magnesium hydrochloride as needed, Namenda 5 mg daily, pantoprazole 40 mg daily, Dilantin 100 mg twice a day and Seroquel 100 mg twice a day, Depakote 250 three times a day. He is on warfarin. The patient continues to be confused, aggressive, unable to give me information. 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 We will continue to work with the patient in group therapy, milieu therapy, adjust the medication as needed. JOB# [id number]
[2017-06-17] MEDS: Levothyroxine 0.075 Mg Tab PO SCH (06:32)
[2017-06-17] MEDS: Atorvastatin Calcium 10 MG TAB PO SCH (08:17)
[2017-06-17] MEDS: Pantoprazole 40 mg EC Tab PO SCH (08:17)
[2017-06-17 09:15] LABS: INR 1.83 (0.5-1.4); PROTHROMBIN TIME (TEST) 19.7 SECONDS (9.5-11.5)
--- NOTE | 2017-06-17 11:04 | Progress Notes ---
DATE: 06/16/2017 SUBJECTIVE: The patient was seen in his room, sitting by the bedside. The patient appears to be awake, alert, oriented x 2 with episodes of confusion. Otherwise, the patient appears to be comfortable, in no acute distress. OBJECTIVE: VITAL SIGNS: Temperature 97.8, heart rate of 94, respirations of 20, blood pressure is 124/77, and 97% on room. HEENT: Head is atraumatic and normocephalic. Eyes, bilateral conjunctivae are clear. Bilateral pupils are equally round and reactive. NECK: Supple. No JVD. CARDIOVASCULAR: S1 and S2 without murmur. PULMONARY: Clear to auscultation. GASTROINTESTINAL: Soft and nontender without guarding. Positive bowel sounds. MUSCULOSKELETAL: No clubbing and no cyanosis noted. ASSESSMENT: 1. Dementia. 2. Hypertension. 3. Hyperlipidemia. 4. Seizure. 5. Gastroesophageal reflux disease. 6. History of transient ischemic attack. PLAN: We will keep the patient in inpatient psychiatry. We will follow up with the psychiatrist to monitor the patient's behavior. Treatment plans were discussed with the patient's nurse. Treatment plans were discussed with Dr. Gonzalez. JOB# [id number]
--- NOTE | 2017-06-17 17:08 | Progress Notes ---
DATE: 06/17/2017 Case was discussed with staff of the patient, reviewed records. Covering for Dr. Rubin. The patient continues to be demented, confused, poor historian. Continues to be unpredictable and impulsive. He is compliant with the medication with no side effects, no sedation, no nausea, no extrapyramidal symptoms. He continues to need redirection. Continues to have poor insight. Unable to make safe plan for self-care. We will continue to work with the patient in group therapy, milieu therapy, adjust medication as needed. JOB# [id number]
--- NOTE | 2017-06-17 17:12 | Internal Medicine Prog Note ---
Internal Medicine Subjective - Subjective Service Date: 06/17/17 Patient is:: awake Per staff patient has:: no adverse event Internal Medicine Objective - Results Result Diagrams: 06/04/17 15:20 06/04/17 15:20 Recent Labs: Laboratory Last Values WBC 6.0 Th/cmm (4.8-10.8) 06/04/17 15:20 RBC 4.73 Mil/cmm (3.80-5.80) 06/04/17 15:20 Hgb 14.2 gm/dL (12-16) 06/04/17 15:20 Hct 42.7 % (41.0-60) 06/04/17 15:20 MCV 90.2 fl (80-99) 06/04/17 15:20 MCH 30.1 pg (27.0-31.0) 06/04/17 15:20 MCHC Differential 33.3 pg (28.0-36.0) 06/04/17 15:20 RDW 13.4 % (11.5-20.0) 06/04/17 15:20 Plt Count 152 Th/cmm (150-400) 06/04/17 15:20 MPV 9.1 fl 06/04/17 15:20 Neutrophils % 62.4 % (40.0-80.0) 06/04/17 15:20 Lymphocytes % 22.3 % (20.0-50.0) 06/04/17 15:20 Monocytes % 8.7 % (2.0-10.0) 06/04/17 15:20 Eosinophils % 6.1 % (0.0-5.0) H 06/04/17 15:20 Basophils % 0.5 % (0.0-2.0) 06/04/17 15:20 PT 19.7 SECONDS (9.5-11.5) H 06/17/17 08:20 INR 1.83 (0.5-1.4) H 06/17/17 08:20 PTT (Actin FS) 31.9 SECONDS (26.0-38.0) 06/17/17 08:20 Sodium 137 mEq/L (136-145) 06/04/17 15:20 Potassium 4.5 mEq/L (3.5-5.1) 06/04/17 15:20 Chloride 104 mEq/L (98-107) 06/04/17 15:20 Carbon Dioxide 28.6 mEq/L (21.0-31.0) 06/04/17 15:20 Anion Gap 8.9 (7.0-16.0) 06/04/17 15:20 BUN 17 mg/dL (7-25) 06/04/17 15:20 Creatinine 0.9 mg/dL (0.7-1.3) 06/04/17 15:20 Est GFR ( Amer) > 60.0 ml/min (>90) 06/04/17 15:20 Est GFR (Non-Af Amer) > 60.0 ml/min 06/04/17 15:20 BUN/Creatinine Ratio 18.9 06/04/17 15:20 Glucose 125 mg/dL (70-105) H 06/04/17 15:20 Calcium 8.7 mg/dL (8.6-10.3) 06/04/17 15:20 Total Bilirubin 0.3 mg/dL (0.3-1.0) 06/04/17 15:20 AST 25 U/L (13-39) 06/04/17 15:20 ALT 19 U/L (7-52) 06/04/17 15:20 Alkaline Phosphatase 75 U/L (34-104) 06/04/17 15:20 Total Protein 6.5 gm/dL (6.0-8.3) 06/04/17 15:20 Albumin 3.8 gm/dL (4.2-5.5) L 06/04/17 15:20 Globulin 2.7 gm/dL 06/04/17 15:20 Albumin/Globulin Ratio 1.4 (1.0-1.8) 06/04/17 15:20 Triglycerides 169 mg/dL (<150) H 06/04/17 15:20 Cholesterol 157 mg/dL (<200) 06/04/17 15:20 LDL Cholesterol Direct 98 mg/dL (75-193) 06/04/17 15:20 HDL Cholesterol 46 mg/dL (23-92) 06/04/17 15:20 TSH 4.85 uIU/ml (0.34-5.60) 06/04/17 15:20 Valproic Acid 39.0 ug/mL (50.0-100.0) L 06/11/17 06:45 RPR NONREACTIVE (NONREACTIVE) 06/04/17 15:20 - Physical Exam Vitals and I&O: Vital Signs Temp 97.0 F 06/17/17 15:38 Pulse 71 06/17/17 15:38 Resp 20 06/17/17 15:38 BP 114/56 06/17/17 15:38 Pulse Ox 94 06/17/17 15:38 Intake & Output 06/16/17 06/17/17 06/17/17 18:59 06:59 18:59 Intake Total 1200 300 Balance 1200 300 Intake: Oral 1200 300 Other: # Voids 3 1 # Bowel Movements 1 0 Stool Characteristics Formed Formed Active Medications: Current Medications Acetaminophen (Tylenol) 650 mg PO Q6H PRN PRN Reason: Mild Pain/Headache/T above 101 Stop: 08/04/17 02:15 Al Hydrox/Mg Hydrox/Simethicone (Maalox) 30 ml PO Q6H PRN PRN Reason: Dyspepsia Stop: 08/04/17 02:15 Atorvastatin Calcium (Lipitor) 20 mg PO DAILY [facility] Stop: 08/04/17 08:59 Last Admin: 06/17/17 08:17 Dose: 20 mg Carvedilol (Coreg) 6.25 mg PO BID [facility] Stop: 08/04/17 08:59 Last Admin: 06/17/17 08:22 Dose: 6.25 mg Donepezil HCl (Aricept) 5 mg PO HS [facility] Stop: 08/03/17 20:59 Last Admin: 06/16/17 20:45 Dose: 5 mg Ibuprofen (Advil) 200 mg PO Q6HR [facility] Stop: 08/04/17 00:00 Last Admin: 06/17/17 12:32 Dose: 200 mg Levothyroxine Sodium (Synthroid) 0.075 mg PO QDAC [facility] Stop: 08/04/17 07:29 Last Admin: 06/17/17 06:32 Dose: 0.075 mg Magnesium Hydroxide (Milk Of Magnesia) 30 ml PO HS PRN PRN Reason: Constipation Stop: 08/04/17 02:15 Memantine (Namenda) 5 mg PO DAILY [facility] Stop: 08/05/17 08:59 Last Admin: 06/17/17 08:21 Dose: 5 mg Pantoprazole Sodium (Protonix) 40 mg PO DAILY [facility] Stop: 08/04/17 08:59 Last Admin: 06/17/17 08:17 Dose: 40 mg Phenytoin (Dilantin) 100 mg PO BID [facility] Stop: 08/04/17 08:59 Last Admin: 06/17/17 08:21 Dose: 100 mg Quetiapine Fumarate (Seroquel) 100 mg PO BID [facility] PRN Reason: Protocol Stop: 08/04/17 08:59 Last Admin: 06/17/17 08:18 Dose: 100 mg Valproate Sodium (Depakene) 250 mg PO TID [facility] PRN Reason: Protocol Stop: 08/03/17 20:59 Last Admin: 06/17/17 14:25 Dose: 250 mg Warfarin Sodium (Coumadin Per Pharmacy) 1 ea [facility] PRN PRN PRN Reason: RX TO DOSE Stop: 08/12/17 15:04 General: alert HEENT: NC/AT, PERRLA Neck: Supple Lungs: CTAB Cardiovascular: RRR, Normal S1, Normal S2, without murmur, with murmur Abdomen: soft, non-tender, non-distended, positive bowel sound Neurological: no change Internal Medicine Assmt/Plan - Assessment Assessment: HTN Dyslipidemia PUD/GERD Seizures Thyroid disorder Dementia, hyperlipidemia hx transient ischemic attack) - Plan Plan: seizure precautions adjust bp meds accordingly continue current plan of care Nutritional Asmnt/Malnutr-PDOC - Dietary Evaluation Malnutrition Findings (Please click <Entered> for more info): Nutritional Asmnt/Malnutrition Start: 06/09/17 15: 15 Text: Status: Complete Freq: Document 06/09/17 15:15 [facility] (Rec: 06/09/17 15:32 LCHENG [email or web address]) Nutritional Asmnt/Malnutrition Patient General Information Nutritional Screening Moderate Risk Diagnosis dementia with agitation Pertinent Medical Hx/Surgical Hx HTN, dyslipidemia, PUD/GERD, seizures, Thryoid disorder, dmentia, TIA Subjective Information Per nurse notes, pt is Maori speaking, orientated to self only, not able to provide food and drug interaction education at this time. Per EMR, PO intake 100% of all meals. Current Diet Order/ Nutrition Support [facility] soft ground, CIERRA, nectar Pertinent Medications synthroid, coumadin, seroquel Pertinent Labs /3 Glucose 125, Alb 3.8 Nutritional Hx/Data Height 5 ft 9 in Height (Calculated Centimeters) 175.3 Current Weight (lbs) 180 lb Weight (Calculated Kilograms) 81.6 Weight (Calculated Grams) 42184.6 [place] Body Weight 160 % [place] Body Weight 113 Body Mass Index (BMI) 26.6 Weight Status Overweight GI Symptoms GI Symptoms None Last BM 06/08 Difficult in: None Skin Integrity/Comment: dryness Estimated Nutritional Goals BEE in Kcals: Using Current wt Calories/Kcals/Kg 23-27 Kcals Calculated 8585-8707 Protein: Using Current wt Protein g/k.8-1 Protein Calculated 66-82 Fluid: ml 4921-3072 Nutritional Problem No current Nutrition Prob Problem N/A Intervention/Recommendation Comments 1. Continue with current diet as ordered. 2. Monitor PO intake, wt, labs and skin integrity 3. F/U as low risk in 06/16 Expected Outcomes/Goals Expected Outcomes/Goals 1. PO intake to meet at least 75% of nutritional needs. 2. Wt stability, skin to remain intact, labs to approach WNL.
[2017-06-18] MEDS: Levothyroxine 0.075 Mg Tab PO SCH (06:38)
[2017-06-18 09:13] LABS: INR 2.11 (0.5-1.4); PROTHROMBIN TIME (TEST) 22.9 SECONDS (9.5-11.5)
[2017-06-18] MEDS: Atorvastatin Calcium 10 MG TAB PO SCH (09:18)
[2017-06-18] MEDS: Pantoprazole 40 mg EC Tab PO SCH (09:18)
--- NOTE | 2017-06-18 11:47 | General Progress Note ---
Subjective - Review of Systems Events since last encounter: no change Objective - Results Result Diagrams: 06/04/17 15:20 06/04/17 15:20 Recent Labs: Laboratory Last Values WBC 6.0 Th/cmm (4.8-10.8) 06/04/17 15:20 RBC 4.73 Mil/cmm (3.80-5.80) 06/04/17 15:20 Hgb 14.2 gm/dL (12-16) 06/04/17 15:20 Hct 42.7 % (41.0-60) 06/04/17 15:20 MCV 90.2 fl (80-99) 06/04/17 15:20 MCH 30.1 pg (27.0-31.0) 06/04/17 15:20 MCHC Differential 33.3 pg (28.0-36.0) 06/04/17 15:20 RDW 13.4 % (11.5-20.0) 06/04/17 15:20 Plt Count 152 Th/cmm (150-400) 06/04/17 15:20 MPV 9.1 fl 06/04/17 15:20 Neutrophils % 62.4 % (40.0-80.0) 06/04/17 15:20 Lymphocytes % 22.3 % (20.0-50.0) 06/04/17 15:20 Monocytes % 8.7 % (2.0-10.0) 06/04/17 15:20 Eosinophils % 6.1 % (0.0-5.0) H 06/04/17 15:20 Basophils % 0.5 % (0.0-2.0) 06/04/17 15:20 PT 22.9 SECONDS (9.5-11.5) H 06/18/17 08:40 INR 2.11 (0.5-1.4) H 06/18/17 08:40 PTT (Actin FS) 31.9 SECONDS (26.0-38.0) 06/17/17 08:20 Sodium 137 mEq/L (136-145) 06/04/17 15:20 Potassium 4.5 mEq/L (3.5-5.1) 06/04/17 15:20 Chloride 104 mEq/L (98-107) 06/04/17 15:20 Carbon Dioxide 28.6 mEq/L (21.0-31.0) 06/04/17 15:20 Anion Gap 8.9 (7.0-16.0) 06/04/17 15:20 BUN 17 mg/dL (7-25) 06/04/17 15:20 Creatinine 0.9 mg/dL (0.7-1.3) 06/04/17 15:20 Est GFR ( Amer) > 60.0 ml/min (>90) 06/04/17 15:20 Est GFR (Non-Af Amer) > 60.0 ml/min 06/04/17 15:20 BUN/Creatinine Ratio 18.9 06/04/17 15:20 Glucose 125 mg/dL (70-105) H 06/04/17 15:20 Calcium 8.7 mg/dL (8.6-10.3) 06/04/17 15:20 Total Bilirubin 0.3 mg/dL (0.3-1.0) 06/04/17 15:20 AST 25 U/L (13-39) 06/04/17 15:20 ALT 19 U/L (7-52) 06/04/17 15:20 Alkaline Phosphatase 75 U/L (34-104) 06/04/17 15:20 Total Protein 6.5 gm/dL (6.0-8.3) 06/04/17 15:20 Albumin 3.8 gm/dL (4.2-5.5) L 06/04/17 15:20 Globulin 2.7 gm/dL 06/04/17 15:20 Albumin/Globulin Ratio 1.4 (1.0-1.8) 06/04/17 15:20 Triglycerides 169 mg/dL (<150) H 06/04/17 15:20 Cholesterol 157 mg/dL (<200) 06/04/17 15:20 LDL Cholesterol Direct 98 mg/dL (75-193) 06/04/17 15:20 HDL Cholesterol 46 mg/dL (23-92) 06/04/17 15:20 TSH 4.85 uIU/ml (0.34-5.60) 06/04/17 15:20 Valproic Acid 39.0 ug/mL (50.0-100.0) L 06/11/17 06:45 RPR NONREACTIVE (NONREACTIVE) 06/04/17 15:20 - Physical Exam Vitals and I&O: Vital Signs Temp 98.2 F 06/18/17 06:18 Pulse 71 06/18/17 09:18 Resp 19 06/18/17 06:18 BP 149/74 06/18/17 09:18 Pulse Ox 97 06/18/17 06:18 Intake & Output 06/17/17 06/18/17 06/18/17 18:59 06:59 18:59 Intake Total 950 550 Balance 950 550 Intake: Oral 950 550 Other: # Voids 3 1 # Bowel Movements 1 1 Stool Characteristics Formed Active Medications: Current Medications Acetaminophen (Tylenol) 650 mg PO Q6H PRN PRN Reason: Mild Pain/Headache/T above 101 Stop: 08/04/17 02:15 Al Hydrox/Mg Hydrox/Simethicone (Maalox) 30 ml PO Q6H PRN PRN Reason: Dyspepsia Stop: 08/04/17 02:15 Atorvastatin Calcium (Lipitor) 20 mg PO DAILY [facility] Stop: 08/04/17 08:59 Last Admin: 06/18/17 09:18 Dose: 20 mg Carvedilol (Coreg) 6.25 mg PO BID [facility] Stop: 08/04/17 08:59 Last Admin: 06/18/17 09:18 Dose: 6.25 mg Donepezil HCl (Aricept) 5 mg PO HS [facility] Stop: 08/03/17 20:59 Last Admin: 06/17/17 21:12 Dose: 5 mg Ibuprofen (Advil) 200 mg PO Q6HR [facility] Stop: 08/04/17 00:00 Last Admin: 06/18/17 06:08 Dose: 200 mg Levothyroxine Sodium (Synthroid) 0.075 mg PO QDAC [facility] Stop: 08/04/17 07:29 Last Admin: 06/18/17 06:38 Dose: 0.075 mg Magnesium Hydroxide (Milk Of Magnesia) 30 ml PO HS PRN PRN Reason: Constipation Stop: 08/04/17 02:15 Memantine (Namenda) 5 mg PO DAILY [facility] Stop: 08/05/17 08:59 Last Admin: 06/18/17 09:18 Dose: 5 mg Pantoprazole Sodium (Protonix) 40 mg PO DAILY [facility] Stop: 08/04/17 08:59 Last Admin: 06/18/17 09:18 Dose: 40 mg Phenytoin (Dilantin) 100 mg PO BID [facility] Stop: 08/04/17 08:59 Last Admin: 06/18/17 09:18 Dose: 100 mg Quetiapine Fumarate (Seroquel) 100 mg PO BID [facility] PRN Reason: Protocol Stop: 08/04/17 08:59 Last Admin: 06/18/17 09:18 Dose: 100 mg Valproate Sodium (Depakene) 250 mg PO TID [facility] PRN Reason: Protocol Stop: 08/03/17 20:59 Last Admin: 06/18/17 09:18 Dose: 250 mg Warfarin Sodium (Coumadin Per Pharmacy) 1 ea [facility] PRN PRN PRN Reason: RX TO DOSE Stop: 08/12/17 15:04 Warfarin Sodium (Coumadin) 2.5 mg PO ONCE ONE Stop: 06/18/17 13:01 General: No acute distress HEENT: Atraumatic, PERRLA Neck: Supple Cardiovascular: Regular rate, Normal S1, Normal S2 Lungs: Clear to auscultation Assessment/Plan - Problem List Patient Problems: All Active Problems Dementia (Acute) F03.90 GERD (gastroesophageal reflux disease) (Acute) K21.9 HTN (hypertension) (Acute) I10 History of transient ischemic attack (Acute) Hyperlipidemia (Acute) E78.5 Seizure (Acute) R56.9 - Plan Plan: as per order sheet Nutritional Asmnt/Malnutr-PDOC - Dietary Evaluation Malnutrition Findings (Please click <Entered> for more info): Nutritional Asmnt/Malnutrition Start: 06/09/17 15: 15 Text: Status: Complete Freq: Document 06/09/17 15:15 [facility] (Rec: 06/09/17 15:32 HEN [email or web address]) Nutritional Asmnt/Malnutrition Patient General Information Nutritional Screening Moderate Risk Diagnosis dementia with agitation Pertinent Medical Hx/Surgical Hx HTN, dyslipidemia, PUD/GERD, seizures, Thryoid disorder, dmentia, TIA Subjective Information Per nurse notes, pt is Irish speaking, orientated to self only, not able to provide food and drug interaction education at this time. Per EMR, PO intake 100% of all meals. Current Diet Order/ Nutrition Support [facility] soft ground, CIERRA, nectar Pertinent Medications synthroid, coumadin, seroquel Pertinent Labs / Glucose 125, Alb 3.8 Nutritional Hx/Data Height 1.75 m Height (Calculated Centimeters) 175.3 Current Weight (lbs) 81.647 kg Weight (Calculated Kilograms) 81.6 Weight (Calculated Grams) 15368.6 [place] Body Weight 160 % [place] Body Weight 113 Body Mass Index (BMI) 26.6 Weight Status Overweight GI Symptoms GI Symptoms None Last BM 06/08 Difficult in: None Skin Integrity/Comment: dryness Estimated Nutritional Goals BEE in Kcals: Using Current wt Calories/Kcals/Kg 23-27 Kcals Calculated 8413-9013 Protein: Using Current wt Protein g/k.8-1 Protein Calculated 66-82 Fluid: ml 9950-6365 Nutritional Problem No current Nutrition Prob Problem N/A Intervention/Recommendation Comments 1. Continue with current diet as ordered. 2. Monitor PO intake, wt, labs and skin integrity 3. F/U as low risk in 06/16 Expected Outcomes/Goals Expected Outcomes/Goals 1. PO intake to meet at least 75% of nutritional needs. 2. Wt stability, skin to remain intact, labs to approach WNL.
[2017-06-19] MEDS: Levothyroxine 0.075 Mg Tab PO SCH (06:50)
[2017-06-19] MEDS: Pantoprazole 40 mg EC Tab PO SCH (08:07)
[2017-06-19] MEDS: Atorvastatin Calcium 10 MG TAB PO SCH (08:08)
--- NOTE | 2017-06-19 08:47 | Discharge Summary ---
DATE OF DISCHARGE: 06/19/2017 AGE: 71. SEX: Male. PHYSICIAN: Suzette Rubin M.D., M.P.H. FINAL DIAGNOSIS/PRIMARY DIAGNOSIS: Unspecified psychosis. 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 REASON FOR HOSPITALIZATION: The patient was admitted to the hospital from [facility] because of increased aggressive behavior and agitation as well as fighting and confused. HOSPITAL COURSE: The patient continued to be confused and agitated and in irritable mood. The patient also was restless and he was confused. The patient was started on Namenda and Aricept and also Seroquel 100 mg twice a day. Also was given Depakote 250 mg 3 times a day. Gradually, the patient's affect was brighter. The patient was less irritable and less agitated. It also was easier to redirect him. [facility] accepted the patient back and the patient was discharged back to [facility]. Physical examination of the patient showed no major medical problems. AFTER DISCHARGE PLANS: The patient discharged from the hospital back to [facility] with plan to follow him up there. EXPECTED OUTCOME AFTER DISCHARGE: Fair if the patient continue with taking his psychotropic medications and follow up with discharge plans. JOB# [id number]
[2017-06-19 09:10] LABS: INR 2.03 (0.5-1.4); PROTHROMBIN TIME (TEST) 21.9 SECONDS (9.5-11.5)
--- NOTE | 2017-06-19 18:00 | Progress Notes ---
DATE: SUBJECTIVE: Chart reviewed and the patient interviewed. Also discussed the patient's condition with the staff and reviewed records and labs. The patient seems to be calmer and he seems to be more cooperative. The patient also is interacting more with peers and with others. He still needs redirections, but easier to redirect him. He still has episodes of agitation and irritability. Otherwise, the patient is compliant with taking his medications with no side effects of medications. ASSESSMENT: The patient seems to be calmer and seems to be slightly better. TREATMENT PLAN: We will continue monitoring behavior and condition closely. Also, we will continue working on adjusting psychotropic medications and working with employment case manager in regard to discharge plans and placement issue. JOB# [id number]
== END 2017-06-19 18:40 | disposition home or self-care (01) | DRG 885 ==
LOC: ER 14:53 → GERO 18:37
PROVIDERS: ADMIT Psychiatry & Neurology Psychiatry; ATTEND Psychiatry & Neurology Psychiatry
DX: F29 Unspecified psychosis not due to a substance or known physiological condition (principal); F03.91 Unspecified dementia, unspecified severity, with behavioral disturbance; G40.909 Epilepsy, unspecified, not intractable, without status epilepticus; E78.5 Hyperlipidemia, unspecified; F39 Unspecified mood [affective] disorder; F41.9 Anxiety disorder, unspecified; I10 Essential (primary) hypertension; K21.9 Gastro-esophageal reflux disease without esophagitis; Z86.73 Personal history of transient ischemic attack (TIA), and cerebral infarction without residual deficits; Z79.01 Long term (current) use of anticoagulants
CPT/HCPCS: 36415-UA; 80053-TC; 80061-TC; 80164-TC; 84443-TC; 85025-TC; 85610-TC; 86592-TC; 93005; J1650; J2060; Z7610

== ENCOUNTER 2018-12-22 17:54 | Inpatient (IN) | payer MEDICARE, OTHER ==
--- NOTE | 2018-12-22 18:08 | ED Physician Chart ---
ED Chief Complaint/HPI - Patient Information Date Seen:: 12/22/18 Time Seen:: 17:50 Chief Complaint:: Agitation History of Present Illness:: onset x 3 days of agitation and aggressive behavior; no report of trauma, SIs, H /As, S/T, neck pain, cough, C/P, SOB, Abd. Pain, A/N/V/D/C, fever, chills, or urinary s/s Allergies:: Allergies Allergy/AdvReac Type Severity Reaction Status Date / Time No Known Allergies Allergy Verified 06/04/17 15:09 Historian:: Patient, EMS Review:: Nurse's Note Reviewed, Old Chart Reviewed, EMS run form Reviewed ED Review of Systems - Review of Systems General/Constitutional: No fever, No chills, No weight loss, No weakness, No diaphoresis, No edema, No loss of appetite Skin: No skin lesions, No rash, No bruising Head: No headache, No light-headedness Eyes: No loss of vision, No pain, No diplopia ENT: No earache, No nasal drainage, No sore throat, No tinnitus Neck: No neck pain, No swelling, No thyromegaly, No stiffness, No mass noted Cardio Vascular: No chest pain, No palpitations, No PND, No orthopnea, No edema Pulmonary: No SOB, No cough, No sputum, No wheezing GI: No nausea, No vomiting, No diarrhea, No pain, No melena, No hematochezia, No constipation, No hematemesis G/U: No dysuria, No frequency, No hematuria, No nacturia Musculoskeletal: No bone or joint pain, No back pain, No muscle pain Endocrine: No polyuria, No polydipsia Psychiatric: Prior psych history, Depression, Anxiety, No suicidal ideation, No homicidal ideation, No auditory hallucination, No visual hallucination Hematopoietic: No bruising, No lymphadenopathy Allergic/Immuno: No urticaria, No angioedema Neurological: No syncope, No focal symptoms, No weakness, No paresthesia, No headache, No seizure, No dizziness, Confusion, No vertigo ED Past Medical History - Past Medical History Obtainable: Yes Past Medical History: HTN, CVA/TIA, Dyslipidemia, Dementia Family History: HTN Social History: Non Smoker, No Alcohol, No Drug Use, , Care Facility Surgical History: None Psychiatricy History: Bipolar, Dementia Medication: Reviewed Family Medical History - Family Member Father Hx Family Cancer: No Hx Family Congestive Heart Failure: No Hx Family Seizures: No Hx Family HIV: No Hx Family COPD: No Hx Family Psychiatric Problems: No Hx Family Tuberculosis: No ED Physical Exam - Physical Examination General/Constitutional: Awake, Well-developed, well-nourished, Alert, No distress, GCS 15, Non-toxic appearing, Ambulatory Head: Atraumatic Eyes: Lids, conjuctiva normal, PERRL, EOMI Skin: Nl inspection, No rash, No skin lesions, No ecchymosis, Well hydrated, No lymphadenopathy ENMT: External ears, nose nl, TM canals nl, Nasal exam nl, Lips, teeth, gums nl , Oropharynx nl, Tonsils nl Neck: Nontender, Full ROM w/o pain, No JVD, No nuchal rigidity, No bruit, No mass, No stridor Respiratory: Nl effort/Exclusion, Clear to Auscultation, No Wheeze/Rhonchi/Rales Cardio Vascular: RRR, No murmur, gallop, rubs, NL S1 S2, Carotid/Femoral/Distal pulses equal bilaterally GI: No tenderness/rebounding/guarding, No organomegaly, No hernia, Normal BS's, Nondistended, No mass/bruits, No McBurney tenderness : No CVA tenderness Extremities: No tenderness or effusion, Full ROM, normal strength in all extremities, No edema, Normal digits & nails Neuro/Psych: Alert/oriented, DTR's symmetric, Normal sensory exam, Normal motor strength, Judgement/insight normal, Mood normal, Normal gait, No focal deficits Other Neuro/Psych comments:: + Psychomotor Agitation; no SIs; Mood/Affect: Labile Misc: Normal back, No paraspinal tenderness ED Labs/Radiology/EKG Results - Lab Results Comments:: Reviewed - EKG Interpretations EKG Time:: 18:30 Rate & Rhythm: 62; NSR Comments:: non-specific st-t changes ED Septic Shock - . Is Septic Shock (SBP<90, OR Lactate>4 mmol\L) present?: No ED Reassessment (Disposition) - Reassessment Reassessment Condition:: Improved - Diagnosis Diagnosis:: Agitation; Medical Clearance; Dementia; Psychosis; Bipolar Disorder - Aftercare/Follow up Instructions Aftercare/Follow-Up Instructions:: Counseled pt regarding lab results/diagnosis & need follow up, Counseled pt & family regarding lab results/diagnosis & need follow up - Patient Disposition Discharge/Transfer:: Acute Care w/in this hosp Admitted to:: [facility] Condition at Disposition:: Stable, Improved
[2018-12-22 18:42] LABS: % BASOPHILS 0.3 % (0.0-2.0); % EOSINOPHILS 2.2 % (0.0-5.0); % LYMPHOCYTES 26.9 % (20.0-50.0); % MONOCYTES 13.3 % (2.0-10.0); % NEUTROPHILS 57.3 % (40.0-80.0); EOSINOPHILE ABSOLUTE 0.1 Th/cmm (0.1-0.4); HEMATOCRIT 40.9 % (41.0-60); HEMOGLOBIN 13.8 gm/dL (12-16); LYMPHOCYTE ABSOLUTE 1.7 Th/cmm (1.5-3.0); MEAN CELL VOLUME 93.4 fl (80-99); MEAN CORPUSCULAR HEMOGLOBIN 31.5 pg (27.0-31.0); MEAN CORPUSCULAR HGB CONC 33.8 pg (28.0-36.0); MONOCYTE ABSOLUTE 0.8 Th/cmm (0.3-1.0); NEUTROPHILE ABSOLUTE 3.7 Th/cmm (1.8-8.0); PLATELET COUNT 161 Th/cmm (150-400); RED BLOOD COUNT 4.38 Mil/cmm (3.80-5.80); RED CELL DISTRIBUTION WIDTH 13.5 % (11.5-20.0); WHITE BLOOD COUNT 6.3 Th/cmm (4.8-10.8)
[2018-12-22 18:50] LABS: ALB/GLOB RATIO 1.5 (1.0-1.8); ALBUMIN 3.8 gm/dL (4.2-5.5); ALKALINE PHOSPHATASE 66 U/L (34-104); ANION GAP 11.8 (7.0-16.0); BILIRUBIN,TOTAL 0.4 mg/dL (0.3-1.0); BUN - UREA NITROGEN 19 mg/dL (7-25); CARBON DIOXIDE 27.4 mEq/L (21.0-31.0); CHLORIDE 103 mEq/L (98-107); CHOLESTEROL 155 mg/dL (<200); CREATININE - SERUM 0.7 mg/dL (0.7-1.3); GLUCOSE 97 mg/dL (70-105); HDL -HIGH DENSITY LIPOPROTEIN 51 mg/dL (23-92); POTASSIUM SERUM 4.2 mEq/L (3.5-5.1); SGOT 17 U/L (13-39); SGPT/ALT 10 U/L (7-52); SODIUM SERUM 138 mEq/L (136-145); TOTAL PROTEIN,SERUM 6.4 gm/dL (6.0-8.3); TRIGLYCERIDES 84 mg/dL (<150)
[2018-12-22 18:51] LABS: ACETAMINOPHEN < 10.0 ug/mL (10.0-30.0)
[2018-12-22 20:34] VITALS: BP 148/63
[2018-12-22] MEDS ORDERED: Acetaminophen 500 MG TAB PO PRN (21:21)
[2018-12-22] MEDS: Atorvastatin Calcium 10 MG TAB PO SCH (22:43)
[2018-12-23] MEDS: Pantoprazole 40 mg EC Tab PO SCH ×2 (09:00→09:26)
[2018-12-23] MEDS: Levothyroxine 0.075 Mg Tab PO SCH ×2 (09:25→09:59)
--- NOTE | 2018-12-23 10:30 | Psychiatric Evaluation ---
DATE OF SERVICE: 12/22/2018 PSYCHIATRIC INITIAL EVALUATION AND MENTAL STATUS EXAMINATION PATIENT'S AGE: 73. SEX: Male. PHYSICIAN: Dr. Rubin. CHIEF COMPLAINT: Agitation and aggressive behavior. HISTORY OF PRESENT ILLNESS: The patient is a 73-year-old male who was transferred to the hospital from [facility]. The patient has been aggressive and agitated with the staff and has not been able to follow any of staff directions. The patient also has been confused and has been striking out at staff when they tried to help him out with his ADLs. Also, during interview, the patient is not able to answer any of the questions coherently and he is rambling in Swedish language with disorganized thoughts and agitation. The patient also seems to be forgetful. PAST PSYCHIATRIC HISTORY: The patient has history of dementia and traumatic brain injury. PAST MEDICAL HISTORY: The patient has hypothyroidism, hypertension, and gastroesophageal reflux disease. SOCIAL HISTORY: The patient lives in [facility]. No known alcohol or drug use. No known legal issues. ALLERGIES: No known allergies. MENTAL STATUS EXAMINATION: The patient appears his stated age. Anxious. Irritable mood. Rambling in Swedish language. Unable to follow any directions. The patient did not answer question regarding hallucinations or delusions, but actively hallucinating. The patient did not answer question regarding suicide or homicide. The patient is alert, but seems to be disoriented to time, place, person, and situation. The patient is unable to assess his memory because the patient is rambling and not able to answer questions currently. ASSESSMENT: PRIMARY DIAGNOSIS: Unspecified psychosis. SECONDARY DIAGNOSIS: Dementia, moderate to severe, with psychosis and behavioral disturbances. TREATMENT PLAN: We will monitor the patient's behavior and condition closely. We will continue Depakote, Namenda and Aricept and will adjust the dose. We will reevaluate the patient for further recommendations. ESTIMATED LENGTH OF STAY: 5-7 days. THE PATIENT'S STRENGTHS AND WEAKNESSES: The patient's strength is not clear at this time. Weakness is his poor impulse control and agitation and his psychosis. AFTER DISCHARGE PLAN: The patient will return to [facility] with outpatient treatment there. CRITERIA FOR DISCHARGE: Better impulse control and the patient will not be aggressive and will stabilize psychotropic medications and outpatient treatment plans. [facility]# [id number]
--- NOTE | 2018-12-23 18:38 | History and Physical ---
History of Present Illness - HPI Chief Complaint: agitation HPI: This is a 73-year old male who is a [facility] due to agitation. Vital Signs: Last Vital Signs Temp 98.1 F 12/23/18 15:16 Pulse 74 12/23/18 16:52 Resp 20 12/23/18 15:16 BP 103/51 12/23/18 16:52 Pulse Ox 94 12/23/18 15:16 Past Medical History Other History: : HTN, CVA/TIA, Dyslipidemia, Dementia Family Medical History - Family Member Father History Unknown: Yes Hx Family Cancer: No Hx Family Congestive Heart Failure: No Hx Family Seizures: No Hx Family HIV: No Hx Family COPD: No Hx Family Psychiatric Problems: No Hx Family Tuberculosis: No Social History Smoke: No Alcohol: None Drugs: None Lives: Shelter - Medications Home Medications: Home Medication Medication Instructions Recorded Type Acetaminophen [Acetaminophen ER] 650 mg PO Q6H PRN 12/22/18 History Acetaminophen [Pain Relief] 500 mg PO Q6H PRN 12/22/18 History Atorvastatin Calcium [Lipitor] 20 mg PO HS 12/22/18 History Carvedilol [Coreg] 6.25 mg PO BID 12/22/18 History Donepezil HCl 5 mg PO HS 12/22/18 History Levothyroxine Sodium 75 mcg PO DAILY 12/22/18 History Memantine HCl [Namenda] 5 mg PO DAILY 12/22/18 History Pantoprazole Sodium 40 mg PO DAILY 12/22/18 History Phenytoin Sodium Extended 200 mg PO BID 12/22/18 History [Extended Phenytoin Sodium] Valproic Acid [Depakene] 300 mg PO BIDRT 12/22/18 History - Allergies Allergies/Adverse Reactions: Allergies Allergy/AdvReac Type Severity Reaction Status Date / Time No Known Allergies Allergy Verified 06/04/17 15:09 Review of Systems - Review of Systems Constitutional: Report: No Significant Eyes: Report: No Significant ENT: Report: No Significant Respiratory: Report: No Significant Cardiovascular: Report: No Significant Gastrointestinal: Report: No Significant Skin: Report: No Significant Neurological: Report: No Significant Physical Exam - Physical Exam HEENT: Report: Ears Nose Throat within normal limits Neck: Report: Within normal limits Cardiovascular Systems: Report: +s1/s2 noted, Regular, Rate and Rhythm Respiratory: Report: Breath Sounds are within normal limits, Clear to Auscultation of lung garcía Extremities: Report: Non-tender to palpation. Skin: Report: Color of skin is within normal limits, Warm, Dry Neuro/Psych: Report: Mood affect is within normal limits - Lab Results All Lab Results last 24 hours: Laboratory Results - last 24 hr 12/22/18 12/22/18 12/22/18 18:21 18:21 18:21 WBC 6.3 RBC 4.38 Hgb 13.8 Hct 40.9 L MCV 93.4 MCH 31.5 H MCHC Differential 33.8 RDW 13.5 Plt Count 161 MPV 9.5 Neutrophils % 57.3 Lymphocytes % 26.9 Monocytes % 13.3 H Eosinophils % 2.2 Basophils % 0.3 Sodium 138 Potassium 4.2 Chloride 103 Carbon Dioxide 27.4 Anion Gap 11.8 BUN 19 Creatinine 0.7 Est GFR ( Amer) TNP Est GFR (Non-Af Amer) TNP BUN/Creatinine Ratio 27.1 Glucose 97 Calcium 9.0 Total Bilirubin 0.4 AST 17 ALT 10 Alkaline Phosphatase 66 Troponin I Total Protein 6.4 Albumin 3.8 L Globulin 2.6 Albumin/Globulin Ratio 1.5 Triglycerides 84 Cholesterol 155 LDL Cholesterol Direct 92 HDL Cholesterol 51 TSH 4.54 Salicylates < 25.0 L Acetaminophen < 10.0 L Ethyl Alcohol < 10 12/22/18 18:21 WBC RBC Hgb Hct MCV MCH MCHC Differential RDW Plt Count MPV Neutrophils % Lymphocytes % Monocytes % Eosinophils % Basophils % Sodium Potassium Chloride Carbon Dioxide Anion Gap BUN Creatinine Est GFR ( Amer) Est GFR (Non-Af Amer) BUN/Creatinine Ratio Glucose Calcium Total Bilirubin AST ALT Alkaline Phosphatase Troponin I 0.05 Total Protein Albumin Globulin Albumin/Globulin Ratio Triglycerides Cholesterol LDL Cholesterol Direct HDL Cholesterol TSH Salicylates Acetaminophen Ethyl Alcohol - Assessment Assessment: agitation HTN hx CVA/TIA Dyslipidemia Dementia - Plan Plan: continue home meds fall precautions monitor bp prn protocol
[2018-12-23] MEDS: Atorvastatin Calcium 10 MG TAB PO SCH (20:46)
[2018-12-24 06:09] LABS: A1C 5.3 % (4.8-5.6)
[2018-12-24] MEDS: Levothyroxine 0.075 Mg Tab PO SCH (06:49)
[2018-12-24] MEDS: Pantoprazole 40 mg EC Tab PO SCH (09:13)
--- NOTE | 2018-12-24 17:45 | Internal Medicine Prog Note ---
Internal Medicine Subjective - Subjective Service Date: 12/24/18 Patient seen and examined:: with staff Patient is:: awake, confused Per staff patient has:: tolerating meds Internal Medicine Objective - Results Result Diagrams: 12/22/18 18:21 12/22/18 18:21 Recent Labs: Laboratory Last Values WBC 6.3 Th/cmm (4.8-10.8) 12/22/18 18:21 RBC 4.38 Mil/cmm (3.80-5.80) 12/22/18 18:21 Hgb 13.8 gm/dL (12-16) 12/22/18 18:21 Hct 40.9 % (41.0-60) L 12/22/18 18:21 MCV 93.4 fl (80-99) 12/22/18 18:21 MCH 31.5 pg (27.0-31.0) H 12/22/18 18:21 MCHC Differential 33.8 pg (28.0-36.0) 12/22/18 18:21 RDW 13.5 % (11.5-20.0) 12/22/18 18:21 Plt Count 161 Th/cmm (150-400) 12/22/18 18:21 MPV 9.5 fl 12/22/18 18:21 Neutrophils % 57.3 % (40.0-80.0) 12/22/18 18:21 Lymphocytes % 26.9 % (20.0-50.0) 12/22/18 18:21 Monocytes % 13.3 % (2.0-10.0) H 12/22/18 18:21 Eosinophils % 2.2 % (0.0-5.0) 12/22/18 18:21 Basophils % 0.3 % (0.0-2.0) 12/22/18 18:21 Sodium 138 mEq/L (136-145) 12/22/18 18:21 Potassium 4.2 mEq/L (3.5-5.1) 12/22/18 18:21 Chloride 103 mEq/L (98-107) 12/22/18 18:21 Carbon Dioxide 27.4 mEq/L (21.0-31.0) 12/22/18 18:21 Anion Gap 11.8 (7.0-16.0) 12/22/18 18:21 BUN 19 mg/dL (7-25) 12/22/18 18:21 Creatinine 0.7 mg/dL (0.7-1.3) 12/22/18 18:21 Est GFR ( Amer) TNP 12/22/18 18:21 Est GFR (Non-Af Amer) TNP 12/22/18 18:21 BUN/Creatinine Ratio 27.1 12/22/18 18:21 Glucose 97 mg/dL (70-105) 12/22/18 18:21 Calcium 9.0 mg/dL (8.6-10.3) 12/22/18 18:21 Total Bilirubin 0.4 mg/dL (0.3-1.0) 12/22/18 18:21 AST 17 U/L (13-39) 12/22/18 18:21 ALT 10 U/L (7-52) 12/22/18 18:21 Alkaline Phosphatase 66 U/L (34-104) 12/22/18 18:21 Troponin I 0.05 ng/mL (0.01-0.05) 12/22/18 18:21 Total Protein 6.4 gm/dL (6.0-8.3) 12/22/18 18:21 Albumin 3.8 gm/dL (4.2-5.5) L 12/22/18 18:21 Globulin 2.6 gm/dL 12/22/18 18:21 Albumin/Globulin Ratio 1.5 (1.0-1.8) 12/22/18 18:21 Triglycerides 84 mg/dL (<150) 12/22/18 18:21 Cholesterol 155 mg/dL (<200) 12/22/18 18:21 LDL Cholesterol Direct 92 mg/dL (75-193) 12/22/18 18:21 HDL Cholesterol 51 mg/dL (23-92) 12/22/18 18:21 TSH 4.54 uIU/ml (0.34-5.60) 12/22/18 18:21 Salicylates < 25.0 mg/L (30.0-100.0) L 12/22/18 18:21 Acetaminophen < 10.0 ug/mL (10.0-30.0) L 12/22/18 18:21 Valproic Acid 21.2 ug/mL (50.0-100.0) L 12/24/18 06:15 Ethyl Alcohol < 10 mg/dL (0-10) 12/22/18 18:21 - Physical Exam Vitals and I&O: Vital Signs Temp 98.4 F 12/24/18 14:00 Pulse 76 12/24/18 17:32 Resp 20 12/24/18 14:00 BP 147/57 12/24/18 17:32 Pulse Ox 97 12/24/18 14:00 Intake & Output 12/23/18 12/24/18 12/24/18 18:59 06:59 18:59 Intake Total 120 Balance 120 Intake: Oral 120 Other: # Voids 3 # Bowel Movements 0 Active Medications: Current Medications Acetaminophen (Tylenol Extra Strength) 500 mg PO Q6H PRN PRN Reason: Pain (Mild) Stop: 02/20/19 21:20 Acetaminophen (Tylenol) 650 mg PO Q6H PRN PRN Reason: Pain (Moderate) Stop: 02/20/19 21:45 Atorvastatin Calcium (Lipitor) 20 mg PO HS [facility] Stop: 02/20/19 21:59 Last Admin: 12/23/18 20:46 Dose: 20 mg Carvedilol (Coreg) 6.25 mg PO BID [facility] Stop: 02/21/19 08:59 Last Admin: 12/24/18 17:32 Dose: 6.25 mg Donepezil HCl (Aricept) 5 mg PO HS [facility] Stop: 02/21/19 20:59 Last Admin: 12/23/18 20:45 Dose: 5 mg Levothyroxine Sodium (Synthroid) 0.075 mg PO QDAC [facility] Stop: 02/21/19 07:29 Last Admin: 12/24/18 06:49 Dose: 0.075 mg Lorazepam (Ativan) 0.5 mg PO Q4HR PRN; Protocol PRN Reason: Anxiety Stop: 01/21/19 20:33 Last Admin: 12/23/18 16:53 Dose: 0.5 mg Memantine (Namenda) 5 mg PO BID [facility] Stop: 02/22/19 08:59 Last Admin: 12/24/18 17:33 Dose: 5 mg Pantoprazole Sodium (Protonix) 40 mg PO DAILY [facility] Stop: 02/21/19 08:59 Last Admin: 12/24/18 09:13 Dose: Not Given Phenytoin (Dilantin) 200 mg PO BID [facility] Stop: 02/20/19 21:59 Last Admin: 12/24/18 17:32 Dose: 200 mg Valproate Sodium (Depakene) 300 mg PO BIDRT FLORENTIN; Protocol Stop: 02/21/19 06:59 Last Admin: 12/24/18 06:49 Dose: 300 mg Zolpidem Tartrate (Ambien) 5 mg PO HS PRN PRN Reason: Insomnia Stop: 02/20/19 20:33 Last Admin: 12/23/18 20:53 Dose: 5 mg General: alert HEENT: NC/AT, PERRLA Neck: Supple, No JVD Lungs: CTAB Cardiovascular: RRR, Normal S1, Normal S2, without murmur Abdomen: soft, non-tender, non-distended, positive bowel sound Extremities: excoriation Neurological: alert Internal Medicine Assmt/Plan - Assessment Assessment: agitation HTN hx CVA/TIA Dyslipidemia Dementia - Plan Plan: continue home meds fall precautions monitor bp prn protocol
[2018-12-24] MEDS: Atorvastatin Calcium 10 MG TAB PO SCH (20:53)
[2018-12-25] MEDS: Levothyroxine 0.075 Mg Tab PO SCH (06:31)
--- NOTE | 2018-12-25 06:40 | Progress Notes ---
DATE: PSYCHIATRIC PROGRESS NOTE SUBJECTIVE: Chart was reviewed and the patient interviewed. Also discussed the patient's condition with the staff and reviewed records and labs. The patient seems to be slightly calmer than before, but he is still forgetful and still has mood swings and unpredictable behavior. The patient gets agitated, especially helping him with his ADLs. The patient also is still slightly suspicious and paranoid. Otherwise, the patient is compliant with taking his medications with no side effects of medications. ASSESSMENT: The patient is still agitated and also considered to be gravely disabled. TREATMENT PLAN: Continue to monitor his behavior and his condition closely. Also, Depakote blood level came back to be 21.2. We will increase Depakote to 400 mg twice a day and continue to work on his behavior and irritability. JOB# [id number]
[2018-12-25] MEDS: Pantoprazole 40 mg EC Tab PO SCH (09:42)
[2018-12-25] MEDS: Atorvastatin Calcium 10 MG TAB PO SCH (21:27)
[2018-12-26] MEDS: Levothyroxine 0.075 Mg Tab PO SCH (06:31)
[2018-12-26] MEDS: Triple Antibiotic 0.94 gm Pkt TP SCH (09:06)
[2018-12-26] MEDS: Pantoprazole 40 mg EC Tab PO SCH (09:07)
[2018-12-26] MEDS: Atorvastatin Calcium 10 MG TAB PO SCH (20:45)
--- NOTE | 2018-12-27 01:59 | Progress Notes ---
DATE: 12/26/2018 Case was discussed with staff of the patient, reviewed records. Covering for Dr. Rubin. This is a 73-year-old male who was admitted on 12/22/2018 because of agitation and aggressive behavior. He was transferred from [facility], has been very agitated, aggressive with the staff. Unable to follow directions, needs help with his ADLs, unable to answer any of the questions. He is rambling in Cambodian with disorganized thoughts and agitation, can not formulate a safe plan for self-care and could not say much rambling even with a accounts officer. He is unpredictable, impulsive, needing redirection. He is on Aricept 10 mg at bedtime because of his dementia. He is on Namenda 5 mg twice a day, Depakene 400 mg twice a day with no side effects, no sedation or nausea. We will continue to work with the patient in group therapy, milieu therapy, and adjust medication as needed. JOB# [id number] [facility]
[2018-12-27] MEDS: Levothyroxine 0.075 Mg Tab PO SCH (06:38)
[2018-12-27] MEDS: Triple Antibiotic 0.94 gm Pkt TP SCH (08:46)
[2018-12-27] MEDS: Pantoprazole 40 mg EC Tab PO SCH (08:46)
--- NOTE | 2018-12-27 09:01 | Internal Medicine Prog Note ---
Internal Medicine Subjective - Subjective Patient is:: awake, confused Per staff patient has:: no episodes of fall, tolerating meds Internal Medicine Objective - Results Result Diagrams: 12/22/18 18:21 12/22/18 18:21 Recent Labs: Laboratory Last Values WBC 6.3 Th/cmm (4.8-10.8) 12/22/18 18:21 RBC 4.38 Mil/cmm (3.80-5.80) 12/22/18 18:21 Hgb 13.8 gm/dL (12-16) 12/22/18 18:21 Hct 40.9 % (41.0-60) L 12/22/18 18:21 MCV 93.4 fl (80-99) 12/22/18 18:21 MCH 31.5 pg (27.0-31.0) H 12/22/18 18:21 MCHC Differential 33.8 pg (28.0-36.0) 12/22/18 18:21 RDW 13.5 % (11.5-20.0) 12/22/18 18:21 Plt Count 161 Th/cmm (150-400) 12/22/18 18:21 MPV 9.5 fl 12/22/18 18:21 Neutrophils % 57.3 % (40.0-80.0) 12/22/18 18:21 Lymphocytes % 26.9 % (20.0-50.0) 12/22/18 18:21 Monocytes % 13.3 % (2.0-10.0) H 12/22/18 18:21 Eosinophils % 2.2 % (0.0-5.0) 12/22/18 18:21 Basophils % 0.3 % (0.0-2.0) 12/22/18 18:21 Sodium 138 mEq/L (136-145) 12/22/18 18:21 Potassium 4.2 mEq/L (3.5-5.1) 12/22/18 18:21 Chloride 103 mEq/L (98-107) 12/22/18 18:21 Carbon Dioxide 27.4 mEq/L (21.0-31.0) 12/22/18 18:21 Anion Gap 11.8 (7.0-16.0) 12/22/18 18:21 BUN 19 mg/dL (7-25) 12/22/18 18:21 Creatinine 0.7 mg/dL (0.7-1.3) 12/22/18 18:21 Est GFR ( Amer) TNP 12/22/18 18:21 Est GFR (Non-Af Amer) TNP 12/22/18 18:21 BUN/Creatinine Ratio 27.1 12/22/18 18:21 Glucose 97 mg/dL (70-105) 12/22/18 18:21 Calcium 9.0 mg/dL (8.6-10.3) 12/22/18 18:21 Total Bilirubin 0.4 mg/dL (0.3-1.0) 12/22/18 18:21 AST 17 U/L (13-39) 12/22/18 18:21 ALT 10 U/L (7-52) 12/22/18 18:21 Alkaline Phosphatase 66 U/L (34-104) 12/22/18 18:21 Troponin I 0.05 ng/mL (0.01-0.05) 12/22/18 18:21 Total Protein 6.4 gm/dL (6.0-8.3) 12/22/18 18:21 Albumin 3.8 gm/dL (4.2-5.5) L 12/22/18 18:21 Globulin 2.6 gm/dL 12/22/18 18:21 Albumin/Globulin Ratio 1.5 (1.0-1.8) 12/22/18 18:21 Triglycerides 84 mg/dL (<150) 12/22/18 18:21 Cholesterol 155 mg/dL (<200) 12/22/18 18:21 LDL Cholesterol Direct 92 mg/dL (75-193) 12/22/18 18:21 HDL Cholesterol 51 mg/dL (23-92) 12/22/18 18:21 TSH 4.54 uIU/ml (0.34-5.60) 12/22/18 18:21 Salicylates < 25.0 mg/L (30.0-100.0) L 12/22/18 18:21 Acetaminophen < 10.0 ug/mL (10.0-30.0) L 12/22/18 18:21 Valproic Acid 21.2 ug/mL (50.0-100.0) L 12/24/18 06:15 Ethyl Alcohol < 10 mg/dL (0-10) 12/22/18 18:21 RPR NONREACTIVE (NONREACTIVE) 12/22/18 18:21 - Physical Exam Vitals and I&O: Vital Signs Temp 99.3 F 12/26/18 20:00 Pulse 81 12/27/18 06:23 Resp 20 12/27/18 06:23 BP 148/85 12/27/18 06:23 Pulse Ox 97 12/27/18 06:23 Intake & Output 12/26/18 12/27/18 12/27/18 18:59 06:59 18:59 Intake Total 1200 Balance 1200 Intake: Oral 1200 Other: # Voids 3 # Bowel Movements 1 Active Medications: Current Medications Acetaminophen (Tylenol Extra Strength) 500 mg PO Q6H PRN PRN Reason: Pain (Mild) Stop: 02/20/19 21:20 Acetaminophen (Tylenol) 650 mg PO Q6H PRN PRN Reason: Pain (Moderate) Stop: 02/20/19 21:45 Atorvastatin Calcium (Lipitor) 20 mg PO HS [facility] Stop: 02/20/19 21:59 Last Admin: 12/26/18 20:45 Dose: 20 mg Carvedilol (Coreg) 6.25 mg PO BID [facility] Stop: 02/21/19 08:59 Last Admin: 12/26/18 17:45 Dose: 6.25 mg Donepezil HCl (Aricept) 10 mg PO HS [facility] Stop: 02/23/19 20:59 Last Admin: 12/26/18 20:45 Dose: 10 mg Levothyroxine Sodium (Synthroid) 0.075 mg PO QDAC [facility] Stop: 02/21/19 07:29 Last Admin: 12/27/18 06:38 Dose: Not Given Lorazepam (Ativan) 0.5 mg PO Q4HR PRN; Protocol PRN Reason: Anxiety Stop: 01/21/19 20:33 Last Admin: 12/23/18 16:53 Dose: 0.5 mg Memantine (Namenda) 5 mg PO BID [facility] Stop: 02/22/19 08:59 Last Admin: 12/27/18 08:44 Dose: 5 mg Neomycin/Polymyxin/Bacitracin (Triple Antibiotic Pkt) 1 pkt TP DAILY [facility] Stop: 02/24/19 08:59 Last Admin: 12/27/18 08:46 Dose: 1 pkt Pantoprazole Sodium (Protonix) 40 mg PO DAILY [facility] Stop: 02/21/19 08:59 Last Admin: 12/27/18 08:46 Dose: 40 mg Phenytoin (Dilantin) 200 mg PO BID [facility] Stop: 02/20/19 21:59 Last Admin: 12/27/18 08:46 Dose: 200 mg Valproate Sodium (Depakene) 400 mg PO BID [facility]; Protocol Stop: 02/23/19 08:59 Last Admin: 12/27/18 08:43 Dose: 400 mg Zolpidem Tartrate (Ambien) 5 mg PO HS PRN PRN Reason: Insomnia Stop: 02/20/19 20:33 Last Admin: 12/26/18 20:45 Dose: 5 mg General: alert, NAD HEENT: NC/AT, PERRLA Neck: Supple, No JVD Lungs: other (no acute respiratory distress) Cardiovascular: RRR Abdomen: soft, non-tender, non-distended Extremities: excoriation, other (skin tear left hand) Neurological: alert Internal Medicine Assmt/Plan - Assessment Assessment: Agitation HTN Hx CVA/TIA Dyslipidemia Dementia - Plan Plan: Continue current treatment plan. Monitor Labs.Continue current medications Continue to monitor VS Monitor Diet/Nutritional support. Psych management per Psychiatry. Pain Management. PT/OT prn Safety precaution, Fall precaution, frequent nursing round. Supportive care. Continue collaborating with consulting specialists, case management and nursing team.
[2018-12-27] MEDS ORDERED: Haloperidol Lactate 5 mg/mL 1mL Vial IM ONE (11:25)
[2018-12-27] MEDS ORDERED: Haloperidol Lactate 5 mg/mL 1mL Vial ONE (11:26)
--- NOTE | 2018-12-27 14:27 | Progress Notes ---
DATE: 12/27/2018 SUBJECTIVE: Case was discussed with staff of the patient, reviewed records. The patient was acting out today, hitting staff, throwing things, hitting at staff. He is very agitated, unable to follow staff direction refusing care with his ADLs. Unable to formulate a safe plan for self-care and impulsive, agitated and aggressive. He is demented and confused. He did get Haldol 2 mg, Ativan 1 mg and Benadryl 25 mg because of his agitation and the patient is on Aricept 10 mg at bedtime. I will be adding Seroquel to help with his agitation and out of control behavior, paranoia. I will be initiating Seroquel 25 mg twice a day on him. I will continue the patient in group therapy, milieu therapy, and adjust the medication as needed. JOB# [id number]
[2018-12-27] MEDS: Atorvastatin Calcium 10 MG TAB PO SCH (20:55)
[2018-12-28] MEDS: Levothyroxine 0.075 Mg Tab PO SCH (06:49)
[2018-12-28] MEDS: Triple Antibiotic 0.94 gm Pkt TP SCH (08:47)
[2018-12-28] MEDS: Pantoprazole 40 mg EC Tab PO SCH (08:49)
--- NOTE | 2018-12-28 13:01 | Internal Medicine Prog Note ---
Internal Medicine Subjective - Subjective Service Date: 12/28/18 Patient is:: awake, confused Per staff patient has:: no episodes of fall, tolerating meds Internal Medicine Objective - Results Result Diagrams: 12/22/18 18:21 12/22/18 18:21 Recent Labs: Laboratory Last Values WBC 6.3 Th/cmm (4.8-10.8) 12/22/18 18:21 RBC 4.38 Mil/cmm (3.80-5.80) 12/22/18 18:21 Hgb 13.8 gm/dL (12-16) 12/22/18 18:21 Hct 40.9 % (41.0-60) L 12/22/18 18:21 MCV 93.4 fl (80-99) 12/22/18 18:21 MCH 31.5 pg (27.0-31.0) H 12/22/18 18:21 MCHC Differential 33.8 pg (28.0-36.0) 12/22/18 18:21 RDW 13.5 % (11.5-20.0) 12/22/18 18:21 Plt Count 161 Th/cmm (150-400) 12/22/18 18:21 MPV 9.5 fl 12/22/18 18:21 Neutrophils % 57.3 % (40.0-80.0) 12/22/18 18:21 Lymphocytes % 26.9 % (20.0-50.0) 12/22/18 18:21 Monocytes % 13.3 % (2.0-10.0) H 12/22/18 18:21 Eosinophils % 2.2 % (0.0-5.0) 12/22/18 18:21 Basophils % 0.3 % (0.0-2.0) 12/22/18 18:21 Sodium 138 mEq/L (136-145) 12/22/18 18:21 Potassium 4.2 mEq/L (3.5-5.1) 12/22/18 18:21 Chloride 103 mEq/L (98-107) 12/22/18 18:21 Carbon Dioxide 27.4 mEq/L (21.0-31.0) 12/22/18 18:21 Anion Gap 11.8 (7.0-16.0) 12/22/18 18:21 BUN 19 mg/dL (7-25) 12/22/18 18:21 Creatinine 0.7 mg/dL (0.7-1.3) 12/22/18 18:21 Est GFR ( Amer) TNP 12/22/18 18:21 Est GFR (Non-Af Amer) TNP 12/22/18 18:21 BUN/Creatinine Ratio 27.1 12/22/18 18:21 Glucose 97 mg/dL (70-105) 12/22/18 18:21 Calcium 9.0 mg/dL (8.6-10.3) 12/22/18 18:21 Total Bilirubin 0.4 mg/dL (0.3-1.0) 12/22/18 18:21 AST 17 U/L (13-39) 12/22/18 18:21 ALT 10 U/L (7-52) 12/22/18 18:21 Alkaline Phosphatase 66 U/L (34-104) 12/22/18 18:21 Troponin I 0.05 ng/mL (0.01-0.05) 12/22/18 18:21 Total Protein 6.4 gm/dL (6.0-8.3) 12/22/18 18:21 Albumin 3.8 gm/dL (4.2-5.5) L 12/22/18 18:21 Globulin 2.6 gm/dL 12/22/18 18:21 Albumin/Globulin Ratio 1.5 (1.0-1.8) 12/22/18 18:21 Triglycerides 84 mg/dL (<150) 12/22/18 18:21 Cholesterol 155 mg/dL (<200) 12/22/18 18:21 LDL Cholesterol Direct 92 mg/dL (75-193) 12/22/18 18:21 HDL Cholesterol 51 mg/dL (23-92) 12/22/18 18:21 TSH 4.54 uIU/ml (0.34-5.60) 12/22/18 18:21 Salicylates < 25.0 mg/L (30.0-100.0) L 12/22/18 18:21 Acetaminophen < 10.0 ug/mL (10.0-30.0) L 12/22/18 18:21 Valproic Acid 21.2 ug/mL (50.0-100.0) L 12/24/18 06:15 Ethyl Alcohol < 10 mg/dL (0-10) 12/22/18 18:21 RPR NONREACTIVE (NONREACTIVE) 12/22/18 18:21 - Physical Exam Vitals and I&O: Vital Signs Temp 97.8 F 12/28/18 06:37 Pulse 80 12/28/18 08:47 Resp 20 12/28/18 07:25 BP 148/63 12/28/18 08:47 Pulse Ox 98 12/28/18 06:37 Intake & Output 12/27/18 12/28/18 12/28/18 18:59 06:59 18:59 Intake Total 240 Balance 240 Intake: Oral 240 Other: # Voids 1 Active Medications: Current Medications Acetaminophen (Tylenol Extra Strength) 500 mg PO Q6H PRN PRN Reason: Pain (Mild) Stop: 02/20/19 21:20 Acetaminophen (Tylenol) 650 mg PO Q6H PRN PRN Reason: Pain (Moderate) Stop: 02/20/19 21:45 Atorvastatin Calcium (Lipitor) 20 mg PO HS [facility] OF [facility] Stop: 02/20/19 21:59 Last Admin: 12/27/18 20:55 Dose: 20 mg Carvedilol (Coreg) 6.25 mg PO BID [facility] Stop: 02/21/19 08:59 Last Admin: 12/28/18 08:47 Dose: 6.25 mg Donepezil HCl (Aricept) 10 mg PO HS [facility] Stop: 02/23/19 20:59 Last Admin: 12/27/18 20:56 Dose: 10 mg Levothyroxine Sodium (Synthroid) 0.075 mg PO QDAC [facility] Stop: 02/21/19 07:29 Last Admin: 12/28/18 06:49 Dose: 0.075 mg Lorazepam (Ativan) 0.5 mg PO Q4HR PRN; Protocol PRN Reason: Anxiety Stop: 01/21/19 20:33 Last Admin: 12/23/18 16:53 Dose: 0.5 mg Memantine (Namenda) 5 mg PO BID [facility] Stop: 02/22/19 08:59 Last Admin: 12/28/18 08:48 Dose: 5 mg Neomycin/Polymyxin/Bacitracin (Triple Antibiotic Pkt) 1 pkt TP DAILY [facility] Stop: 02/24/19 08:59 Last Admin: 12/28/18 08:47 Dose: 1 pkt Pantoprazole Sodium (Protonix) 40 mg PO DAILY [facility] Stop: 02/21/19 08:59 Last Admin: 12/28/18 08:49 Dose: 40 mg Phenytoin (Dilantin) 200 mg PO BID [facility] Stop: 02/20/19 21:59 Last Admin: 12/28/18 08:47 Dose: 200 mg Quetiapine Fumarate (Seroquel) 50 mg PO BID [facility]; Protocol Stop: 02/26/19 08:59 Last Admin: 12/28/18 08:47 Dose: 50 mg Quetiapine Fumarate (Seroquel) 50 mg PO HS [facility]; Protocol Stop: 02/26/19 20:59 Valproate Sodium (Depakene) 500 mg PO BID [facility]; Protocol Stop: 02/26/19 08:59 Last Admin: 12/28/18 08:46 Dose: 500 mg Zolpidem Tartrate (Ambien) 5 mg PO HS PRN PRN Reason: Insomnia Stop: 02/20/19 20:33 Last Admin: 12/27/18 20:56 Dose: 5 mg General: alert, NAD HEENT: NC/AT, PERRLA Neck: Supple, No JVD Lungs: other (no acute respiratory distress) Cardiovascular: RRR Abdomen: soft, non-tender, non-distended Extremities: excoriation, other (skin tear left hand) Neurological: alert Internal Medicine Assmt/Plan - Assessment Assessment: agitation HTN hx CVA/TIA Dyslipidemia Dementia - Plan Plan: continue home meds fall precautions monitor bp prn protocol Nutritional Asmnt/Malnutr-PDOC - Dietary Evaluation Malnutrition Findings (Please click <Entered> for more info): Nutritional Asmnt/Malnutrition Start: 12/28/18 11: 19 Text: Status: Complete Freq: Protocol: Document 12/28/18 11:19 JIL (Rec: 12/28/18 11:23 JIL [email or web address]) Nutritional Asmnt/Malnutrition Patient General Information Nutritional Screening Low Risk Diagnosis Psychosis Pertinent Medical Hx/Surgical Hx HTN, Bipolar disorder, Dementia, CVA/TIA, Dyslipidemia Subjective Information Pt is a 73-year-old male admitted on 12/22 from shelter d/t onset agitation and aggressive behavior f x3 days. HT: 6 FT WT: 158 LB (71.82 KG) BMI: 21.43 (Normal) GI: Soft, non-tender, round, noted umbilical hernia, asymptomatic BM: 12/27 x1 I/O: 240/Not Noted Skin: WNL, intact Isidoro: 15 Diet Order: Mechanical Soft, CIERRA Estimated Energy Needs: ( Geriatric, CBW) 7080-9476 kcals (25-30 kcals/ kg) 72-86 G Pro (1.0-1.2 g/kg) 8945-5098 ml (25-30 ml/kg) Pt is eating an estimated 60% of meals Per Meal/Nutrition Activity Record. Dietary is currently providing an estimated 2250 kcals and 105 gm Pro, per Pt PO intake this is providing an estimated 1350 kcals and 63gm Pro to meet 75 % kcal and 88% Pro needs- adequate. Current Diet Order/ Nutrition Support Mechanical Soft, CIERRA Pertinent Medications Lipitor, Coreg, Synthroid, Protonix Pertinent Labs 12/22: Hgb/Hct 13.8/40.9, Alb 3 .8 Nutritional Hx/Data Height 6 ft Height (Calculated Centimeters) 182.9 Current Weight (lbs) 158 lb Weight (Calculated Kilograms) 71.7 Weight (Calculated Grams) 81524.6 [place] Body Weight 178 lb (80.91 kg) % [place] Body Weight 89 Body Mass Index (BMI) 21.4 Weight Status Approriate GI Symptoms GI Symptoms None Last BM 12/27 x1 Skin Integrity/Comment: WNL, intact Isidoro: 15 Current %PO Fair (50-74%) Estimated Nutritional Goals BEE in Kcals: Using Current wt Calories/Kcals/Kg 25-30 Kcals Calculated 5610-6392 Protein: Using Current wt Protein g/k.0-1.2 Protein Calculated 72-86 Fluid: ml 1061-2414 ml (25-30 ml/kg) Nutritional Problem No current Nutrition Prob Problem No nutrition diagnosis at this time. Etiology n/a Signs/Symptoms: n/a Malnutrition Related to Morbid Obesity Malnutrition related to morbid obesity No Intervention/Recommendation Comments Continue with mechanical soft, CIERRA diet as ordered. Expected Outcomes/Goals Expected Outcomes/Goals 1. PO intake to continue to meet 75% of nutritional needs. 2. Monitor PO intake, wt, nutrition related labs, and skin integrity to trend WNL. 3. F/U as low risk in 7 days, 01/04
--- NOTE | 2018-12-28 13:02 | Internal Medicine Prog Note ---
Internal Medicine Subjective - Subjective Service Date: 12/28/18 Patient is:: awake, confused Per staff patient has:: no episodes of fall, tolerating meds Internal Medicine Objective - Results Result Diagrams: 12/22/18 18:21 12/22/18 18:21 Recent Labs: Laboratory Last Values WBC 6.3 Th/cmm (4.8-10.8) 12/22/18 18:21 RBC 4.38 Mil/cmm (3.80-5.80) 12/22/18 18:21 Hgb 13.8 gm/dL (12-16) 12/22/18 18:21 Hct 40.9 % (41.0-60) L 12/22/18 18:21 MCV 93.4 fl (80-99) 12/22/18 18:21 MCH 31.5 pg (27.0-31.0) H 12/22/18 18:21 MCHC Differential 33.8 pg (28.0-36.0) 12/22/18 18:21 RDW 13.5 % (11.5-20.0) 12/22/18 18:21 Plt Count 161 Th/cmm (150-400) 12/22/18 18:21 MPV 9.5 fl 12/22/18 18:21 Neutrophils % 57.3 % (40.0-80.0) 12/22/18 18:21 Lymphocytes % 26.9 % (20.0-50.0) 12/22/18 18:21 Monocytes % 13.3 % (2.0-10.0) H 12/22/18 18:21 Eosinophils % 2.2 % (0.0-5.0) 12/22/18 18:21 Basophils % 0.3 % (0.0-2.0) 12/22/18 18:21 Sodium 138 mEq/L (136-145) 12/22/18 18:21 Potassium 4.2 mEq/L (3.5-5.1) 12/22/18 18:21 Chloride 103 mEq/L (98-107) 12/22/18 18:21 Carbon Dioxide 27.4 mEq/L (21.0-31.0) 12/22/18 18:21 Anion Gap 11.8 (7.0-16.0) 12/22/18 18:21 BUN 19 mg/dL (7-25) 12/22/18 18:21 Creatinine 0.7 mg/dL (0.7-1.3) 12/22/18 18:21 Est GFR ( Amer) TNP 12/22/18 18:21 Est GFR (Non-Af Amer) TNP 12/22/18 18:21 BUN/Creatinine Ratio 27.1 12/22/18 18:21 Glucose 97 mg/dL (70-105) 12/22/18 18:21 Calcium 9.0 mg/dL (8.6-10.3) 12/22/18 18:21 Total Bilirubin 0.4 mg/dL (0.3-1.0) 12/22/18 18:21 AST 17 U/L (13-39) 12/22/18 18:21 ALT 10 U/L (7-52) 12/22/18 18:21 Alkaline Phosphatase 66 U/L (34-104) 12/22/18 18:21 Troponin I 0.05 ng/mL (0.01-0.05) 12/22/18 18:21 Total Protein 6.4 gm/dL (6.0-8.3) 12/22/18 18:21 Albumin 3.8 gm/dL (4.2-5.5) L 12/22/18 18:21 Globulin 2.6 gm/dL 12/22/18 18:21 Albumin/Globulin Ratio 1.5 (1.0-1.8) 12/22/18 18:21 Triglycerides 84 mg/dL (<150) 12/22/18 18:21 Cholesterol 155 mg/dL (<200) 12/22/18 18:21 LDL Cholesterol Direct 92 mg/dL (75-193) 12/22/18 18:21 HDL Cholesterol 51 mg/dL (23-92) 12/22/18 18:21 TSH 4.54 uIU/ml (0.34-5.60) 12/22/18 18:21 Salicylates < 25.0 mg/L (30.0-100.0) L 12/22/18 18:21 Acetaminophen < 10.0 ug/mL (10.0-30.0) L 12/22/18 18:21 Valproic Acid 21.2 ug/mL (50.0-100.0) L 12/24/18 06:15 Ethyl Alcohol < 10 mg/dL (0-10) 12/22/18 18:21 RPR NONREACTIVE (NONREACTIVE) 12/22/18 18:21 - Physical Exam Vitals and I&O: Vital Signs Temp 97.8 F 12/28/18 06:37 Pulse 80 12/28/18 08:47 Resp 20 12/28/18 07:25 BP 148/63 12/28/18 08:47 Pulse Ox 98 12/28/18 06:37 Intake & Output 12/27/18 12/28/18 12/28/18 18:59 06:59 18:59 Intake Total 240 Balance 240 Intake: Oral 240 Other: # Voids 1 Active Medications: Current Medications Acetaminophen (Tylenol Extra Strength) 500 mg PO Q6H PRN PRN Reason: Pain (Mild) Stop: 02/20/19 21:20 Acetaminophen (Tylenol) 650 mg PO Q6H PRN PRN Reason: Pain (Moderate) Stop: 02/20/19 21:45 Atorvastatin Calcium (Lipitor) 20 mg PO HS [facility] Stop: 02/20/19 21:59 Last Admin: 12/27/18 20:55 Dose: 20 mg Carvedilol (Coreg) 6.25 mg PO BID [facility] Stop: 02/21/19 08:59 Last Admin: 12/28/18 08:47 Dose: 6.25 mg Donepezil HCl (Aricept) 10 mg PO HS [facility] Stop: 02/23/19 20:59 Last Admin: 12/27/18 20:56 Dose: 10 mg Levothyroxine Sodium (Synthroid) 0.075 mg PO QDAC [facility] Stop: 02/21/19 07:29 Last Admin: 12/28/18 06:49 Dose: 0.075 mg Lorazepam (Ativan) 0.5 mg PO Q4HR PRN; Protocol PRN Reason: Anxiety Stop: 01/21/19 20:33 Last Admin: 12/23/18 16:53 Dose: 0.5 mg Memantine (Namenda) 5 mg PO BID [facility] Stop: 02/22/19 08:59 Last Admin: 12/28/18 08:48 Dose: 5 mg Neomycin/Polymyxin/Bacitracin (Triple Antibiotic Pkt) 1 pkt TP DAILY [facility] Stop: 02/24/19 08:59 Last Admin: 12/28/18 08:47 Dose: 1 pkt Pantoprazole Sodium (Protonix) 40 mg PO DAILY [facility] Stop: 02/21/19 08:59 Last Admin: 12/28/18 08:49 Dose: 40 mg Phenytoin (Dilantin) 200 mg PO BID [facility] Stop: 02/20/19 21:59 Last Admin: 12/28/18 08:47 Dose: 200 mg Quetiapine Fumarate (Seroquel) 50 mg PO BID [facility]; Protocol Stop: 02/26/19 08:59 Last Admin: 12/28/18 08:47 Dose: 50 mg Quetiapine Fumarate (Seroquel) 50 mg PO HS [facility]; Protocol Stop: 02/26/19 20:59 Valproate Sodium (Depakene) 500 mg PO BID [facility]; Protocol Stop: 02/26/19 08:59 Last Admin: 12/28/18 08:46 Dose: 500 mg Zolpidem Tartrate (Ambien) 5 mg PO HS PRN PRN Reason: Insomnia Stop: 02/20/19 20:33 Last Admin: 12/27/18 20:56 Dose: 5 mg General: alert, NAD HEENT: NC/AT, PERRLA Neck: Supple, No JVD Lungs: other (no acute respiratory distress) Cardiovascular: RRR Abdomen: soft, non-tender, non-distended Extremities: excoriation, other (skin tear left hand) Neurological: alert Internal Medicine Assmt/Plan - Assessment Assessment: agitation HTN hx CVA/TIA Dyslipidemia Dementia - Plan Plan: continue home meds fall precautions monitor bp prn protocol Nutritional Asmnt/Malnutr-PDOC - Dietary Evaluation Malnutrition Findings (Please click <Entered> for more info): Nutritional Asmnt/Malnutrition Start: 12/28/18 11: 19 Text: Status: Complete Freq: Protocol: Document 12/28/18 11:19 JIL (Rec: 12/28/18 11:23 JIL [email or web address]) Nutritional Asmnt/Malnutrition Patient General Information Nutritional Screening Low Risk Diagnosis Psychosis Pertinent Medical Hx/Surgical Hx HTN, Bipolar disorder, Dementia, CVA/TIA, Dyslipidemia Subjective Information Pt is a 73-year-old male admitted on 12/22 from [facility] d/t onset agitation and aggressive behavior f x3 days. HT: 6 FT WT: 158 LB (71.82 KG) BMI: 21.43 (Normal) GI: Soft, non-tender, round, noted umbilical hernia, asymptomatic BM: 12/27 x1 I/O: 240/Not Noted Skin: WNL, intact Isidoro: 15 Diet Order: Mechanical Soft, CIERRA Estimated Energy Needs: ( Geriatric, CBW) 1784-5932 kcals (25-30 kcals/ kg) 72-86 G Pro (1.0-1.2 g/kg) 0054-4822 ml (25-30 ml/kg) Pt is eating an estimated 60% of meals Per Meal/Nutrition Activity Record. Dietary is currently providing an estimated 2250 kcals and 105 gm Pro, per Pt PO intake this is providing an estimated 1350 kcals and 63gm Pro to meet 75 % kcal and 88% Pro needs- adequate. Current Diet Order/ Nutrition Support Mechanical Soft, CIERRA Pertinent Medications Lipitor, Coreg, Synthroid, Protonix Pertinent Labs 12/22: Hgb/Hct 13.8/40.9, Alb 3 .8 Nutritional Hx/Data Height 6 ft Height (Calculated Centimeters) 182.9 Current Weight (lbs) 158 lb Weight (Calculated Kilograms) 71.7 Weight (Calculated Grams) 71399.6 [place] Body Weight 178 lb (80.91 kg) % [place] Body Weight 89 Body Mass Index (BMI) 21.4 Weight Status Approriate GI Symptoms GI Symptoms None Last BM 12/27 x1 Skin Integrity/Comment: WNL, intact Isidoro: 15 Current %PO Fair (50-74%) Estimated Nutritional Goals BEE in Kcals: Using Current wt Calories/Kcals/Kg 25-30 Kcals Calculated 4964-1079 Protein: Using Current wt Protein g/k.0-1.2 Protein Calculated 72-86 Fluid: ml 2380-2821 ml (25-30 ml/kg) Nutritional Problem No current Nutrition Prob Problem No nutrition diagnosis at this time. Etiology n/a Signs/Symptoms: n/a Malnutrition Related to Morbid Obesity Malnutrition related to morbid obesity No Intervention/Recommendation Comments Continue with mechanical soft, CIERRA diet as ordered. Expected Outcomes/Goals Expected Outcomes/Goals 1. PO intake to continue to meet 75% of nutritional needs. 2. Monitor PO intake, wt, nutrition related labs, and skin integrity to trend WNL. 3. F/U as low risk in 7 days, 01/04
[2018-12-28] MEDS: Atorvastatin Calcium 10 MG TAB PO SCH (21:30)
--- NOTE | 2018-12-29 01:42 | Progress Notes ---
DATE: SUBJECTIVE: Chart reviewed and the patient interviewed. Also discussed the patient's condition with the staff and reviewed records and labs. The patient is still extremely agitated and irritable. The patient also is striking out at staff and he is still angry and irritable. The patient also is confused and suspicious and paranoid. Yesterday, the patient was extremely aggressive and tried to hit staff and the patient was given Haldol, Ativan and Benadryl injection on an emergency basis. Depakote blood level that was done on 12/24/2018 came back to be 21.2, which is below therapeutic level. ASSESSMENT: The patient is still aggressive and agitated and needs close monitoring. TREATMENT PLAN: We will continue monitoring his behavior closely and work on his agitation. Also, we will increase Depakote to 500 mg twice a day and Seroquel to 50 mg twice a day and 50 mg at bedtime and we will continue to follow up closely. JOB# [id number]
[2018-12-29] MEDS: Levothyroxine 0.075 Mg Tab PO SCH (06:52)
[2018-12-29] MEDS: Triple Antibiotic 0.94 gm Pkt TP SCH (08:25)
[2018-12-29] MEDS: Pantoprazole 40 mg EC Tab PO SCH (08:29)
--- NOTE | 2018-12-29 13:59 | Internal Medicine Prog Note ---
Internal Medicine Subjective - Subjective Service Date: 12/29/18 Patient is:: awake, confused Per staff patient has:: no episodes of fall, tolerating meds Internal Medicine Objective - Results Result Diagrams: 12/22/18 18:21 12/22/18 18:21 Recent Labs: Laboratory Last Values WBC 6.3 Th/cmm (4.8-10.8) 12/22/18 18:21 RBC 4.38 Mil/cmm (3.80-5.80) 12/22/18 18:21 Hgb 13.8 gm/dL (12-16) 12/22/18 18:21 Hct 40.9 % (41.0-60) L 12/22/18 18:21 MCV 93.4 fl (80-99) 12/22/18 18:21 MCH 31.5 pg (27.0-31.0) H 12/22/18 18:21 MCHC Differential 33.8 pg (28.0-36.0) 12/22/18 18:21 RDW 13.5 % (11.5-20.0) 12/22/18 18:21 Plt Count 161 Th/cmm (150-400) 12/22/18 18:21 MPV 9.5 fl 12/22/18 18:21 Neutrophils % 57.3 % (40.0-80.0) 12/22/18 18:21 Lymphocytes % 26.9 % (20.0-50.0) 12/22/18 18:21 Monocytes % 13.3 % (2.0-10.0) H 12/22/18 18:21 Eosinophils % 2.2 % (0.0-5.0) 12/22/18 18:21 Basophils % 0.3 % (0.0-2.0) 12/22/18 18:21 Sodium 138 mEq/L (136-145) 12/22/18 18:21 Potassium 4.2 mEq/L (3.5-5.1) 12/22/18 18:21 Chloride 103 mEq/L (98-107) 12/22/18 18:21 Carbon Dioxide 27.4 mEq/L (21.0-31.0) 12/22/18 18:21 Anion Gap 11.8 (7.0-16.0) 12/22/18 18:21 BUN 19 mg/dL (7-25) 12/22/18 18:21 Creatinine 0.7 mg/dL (0.7-1.3) 12/22/18 18:21 Est GFR ( Amer) TNP 12/22/18 18:21 Est GFR (Non-Af Amer) TNP 12/22/18 18:21 BUN/Creatinine Ratio 27.1 12/22/18 18:21 Glucose 97 mg/dL (70-105) 12/22/18 18:21 Calcium 9.0 mg/dL (8.6-10.3) 12/22/18 18:21 Total Bilirubin 0.4 mg/dL (0.3-1.0) 12/22/18 18:21 AST 17 U/L (13-39) 12/22/18 18:21 ALT 10 U/L (7-52) 12/22/18 18:21 Alkaline Phosphatase 66 U/L (34-104) 12/22/18 18:21 Troponin I 0.05 ng/mL (0.01-0.05) 12/22/18 18:21 Total Protein 6.4 gm/dL (6.0-8.3) 12/22/18 18:21 Albumin 3.8 gm/dL (4.2-5.5) L 12/22/18 18:21 Globulin 2.6 gm/dL 12/22/18 18:21 Albumin/Globulin Ratio 1.5 (1.0-1.8) 12/22/18 18:21 Triglycerides 84 mg/dL (<150) 12/22/18 18:21 Cholesterol 155 mg/dL (<200) 12/22/18 18:21 LDL Cholesterol Direct 92 mg/dL (75-193) 12/22/18 18:21 HDL Cholesterol 51 mg/dL (23-92) 12/22/18 18:21 TSH 4.54 uIU/ml (0.34-5.60) 12/22/18 18:21 Salicylates < 25.0 mg/L (30.0-100.0) L 12/22/18 18:21 Acetaminophen < 10.0 ug/mL (10.0-30.0) L 12/22/18 18:21 Valproic Acid 21.2 ug/mL (50.0-100.0) L 12/24/18 06:15 Ethyl Alcohol < 10 mg/dL (0-10) 12/22/18 18:21 RPR NONREACTIVE (NONREACTIVE) 12/22/18 18:21 - Physical Exam Vitals and I&O: Vital Signs Temp 97.6 F 12/29/18 06:12 Pulse 72 12/29/18 08:25 Resp 19 12/29/18 07:33 BP 110/89 12/29/18 08:25 Pulse Ox 97 12/29/18 06:12 Intake & Output 12/28/18 12/29/18 12/29/18 18:59 06:59 18:59 Intake Total 800 240 Balance 800 240 Intake: Oral 800 240 Other: # Voids 3 2 # Bowel Movements 0 0 Active Medications: Current Medications Acetaminophen (Tylenol Extra Strength) 500 mg PO Q6H PRN PRN Reason: Pain (Mild) Stop: 02/20/19 21:20 Acetaminophen (Tylenol) 650 mg PO Q6H PRN PRN Reason: Pain (Moderate) Stop: 02/20/19 21:45 Atorvastatin Calcium (Lipitor) 20 mg PO HS FLORENTIN Stop: 02/20/19 21:59 Last Admin: 12/28/18 21:30 Dose: 20 mg Carvedilol (Coreg) 6.25 mg PO BID FLORENTIN Stop: 02/21/19 08:59 Last Admin: 12/29/18 08:25 Dose: 6.25 mg Donepezil HCl (Aricept) 10 mg PO HS FLORENTIN Stop: 02/23/19 20:59 Last Admin: 12/28/18 21:30 Dose: 10 mg Levothyroxine Sodium (Synthroid) 0.075 mg PO QDAC FLORENTIN Stop: 02/21/19 07:29 Last Admin: 12/29/18 06:52 Dose: 0.075 mg Lorazepam (Ativan) 0.5 mg PO Q4HR PRN; Protocol PRN Reason: Anxiety Stop: 01/21/19 20:33 Last Admin: 12/23/18 16:53 Dose: 0.5 mg Memantine (Namenda) 5 mg PO BID FLORENTIN Stop: 02/22/19 08:59 Last Admin: 12/29/18 08:29 Dose: 5 mg Neomycin/Polymyxin/Bacitracin (Triple Antibiotic Pkt) 1 pkt TP DAILY FLORENTIN Stop: 02/24/19 08:59 Last Admin: 12/29/18 08:25 Dose: 1 pkt Pantoprazole Sodium (Protonix) 40 mg PO DAILY FLORENTIN Stop: 02/21/19 08:59 Last Admin: 12/29/18 08:29 Dose: 40 mg Phenytoin (Dilantin) 200 mg PO BID FLORENTIN Stop: 02/20/19 21:59 Last Admin: 12/29/18 08:29 Dose: 200 mg Quetiapine Fumarate (Seroquel) 50 mg PO BID FLORENTIN; Protocol Stop: 02/26/19 08:59 Last Admin: 12/29/18 08:27 Dose: 50 mg Quetiapine Fumarate (Seroquel) 50 mg PO HS FLORENTIN; Protocol Stop: 02/26/19 20:59 Last Admin: 12/28/18 21:31 Dose: 50 mg Valproate Sodium (Depakene) 500 mg PO BID FLORENTIN; Protocol Stop: 02/26/19 08:59 Last Admin: 12/29/18 08:25 Dose: 500 mg Zolpidem Tartrate (Ambien) 5 mg PO HS PRN PRN Reason: Insomnia Stop: 02/20/19 20:33 Last Admin: 12/28/18 21:31 Dose: 5 mg General: alert, NAD HEENT: NC/AT, PERRLA Neck: Supple, No JVD Lungs: other (no acute respiratory distress) Cardiovascular: RRR Abdomen: soft, non-tender, non-distended Extremities: excoriation, other (skin tear left hand) Neurological: alert Internal Medicine Assmt/Plan - Assessment Assessment: agitation HTN hx CVA/TIA Dyslipidemia Dementia - Plan Plan: continue home meds fall precautions monitor bp prn protocol Nutritional Asmnt/Malnutr-PDOC - Dietary Evaluation Malnutrition Findings (Please click <Entered> for more info): Nutritional Asmnt/Malnutrition Start: 12/28/18 11: 19 Text: Status: Complete Freq: Protocol: Document 12/28/18 11:19 JIL (Rec: 12/28/18 11:23 JIL [email or web address]) Nutritional Asmnt/Malnutrition Patient General Information Nutritional Screening Low Risk Diagnosis Psychosis Pertinent Medical Hx/Surgical Hx HTN, Bipolar disorder, Dementia, CVA/TIA, Dyslipidemia Subjective Information Pt is a 73-year-old male admitted on 12/22 from custodial d/t onset agitation and aggressive behavior f x3 days. HT: 6 FT WT: 158 LB (71.82 KG) BMI: 21.43 (Normal) GI: Soft, non-tender, round, noted umbilical hernia, asymptomatic BM: 12/27 x1 I/O: 240/Not Noted Skin: WNL, intact Isidoro: 15 Diet Order: Mechanical Soft, CIERRA Estimated Energy Needs: ( Geriatric, CBW) 6708-6339 kcals (25-30 kcals/ kg) 72-86 G Pro (1.0-1.2 g/kg) 7687-1471 ml (25-30 ml/kg) Pt is eating an estimated 60% of meals Per Meal/Nutrition Activity Record. Dietary is currently providing an estimated 2250 kcals and 105 gm Pro, per Pt PO intake this is providing an estimated 1350 kcals and 63gm Pro to meet 75 % kcal and 88% Pro needs- adequate. Current Diet Order/ Nutrition Support Mechanical Soft, CIERRA Pertinent Medications Lipitor, Coreg, Synthroid, Protonix Pertinent Labs 12/22: Hgb/Hct 13.8/40.9, Alb 3 .8 Nutritional Hx/Data Height 6 ft Height (Calculated Centimeters) 182.9 Current Weight (lbs) 158 lb Weight (Calculated Kilograms) 71.7 Weight (Calculated Grams) 50927.6 [place] Body Weight 178 lb (80.91 kg) % [place] Body Weight 89 Body Mass Index (BMI) 21.4 Weight Status Approriate GI Symptoms GI Symptoms None Last BM 12/27 x1 Skin Integrity/Comment: WNL, intact Isidoro: 15 Current %PO Fair (50-74%) Estimated Nutritional Goals BEE in Kcals: Using Current wt Calories/Kcals/Kg 25-30 Kcals Calculated 3369-0821 Protein: Using Current wt Protein g/k.0-1.2 Protein Calculated 72-86 Fluid: ml 5803-8156 ml (25-30 ml/kg) Nutritional Problem No current Nutrition Prob Problem No nutrition diagnosis at this time. Etiology n/a Signs/Symptoms: n/a Malnutrition Related to Morbid Obesity Malnutrition related to morbid obesity No Intervention/Recommendation Comments Continue with mechanical soft, CIERRA diet as ordered. Expected Outcomes/Goals Expected Outcomes/Goals 1. PO intake to continue to meet 75% of nutritional needs. 2. Monitor PO intake, wt, nutrition related labs, and skin integrity to trend WNL. 3. F/U as low risk in 7 days, 01/04
[2018-12-29] MEDS: Atorvastatin Calcium 10 MG TAB PO SCH (21:03)
[2018-12-30] MEDS: Levothyroxine 0.075 Mg Tab PO SCH (06:42)
[2018-12-30] MEDS: Pantoprazole 40 mg EC Tab PO SCH (09:00)
[2018-12-30] MEDS: Triple Antibiotic 0.94 gm Pkt TP SCH (11:20)
--- NOTE | 2018-12-30 13:45 | Internal Medicine Prog Note ---
Internal Medicine Subjective - Subjective Service Date: 12/30/18 Patient is:: awake, confused Per staff patient has:: no episodes of fall, tolerating meds Internal Medicine Objective - Results Result Diagrams: 12/22/18 18:21 12/22/18 18:21 Recent Labs: Laboratory Last Values WBC 6.3 Th/cmm (4.8-10.8) 12/22/18 18:21 RBC 4.38 Mil/cmm (3.80-5.80) 12/22/18 18:21 Hgb 13.8 gm/dL (12-16) 12/22/18 18:21 Hct 40.9 % (41.0-60) L 12/22/18 18:21 MCV 93.4 fl (80-99) 12/22/18 18:21 MCH 31.5 pg (27.0-31.0) H 12/22/18 18:21 MCHC Differential 33.8 pg (28.0-36.0) 12/22/18 18:21 RDW 13.5 % (11.5-20.0) 12/22/18 18:21 Plt Count 161 Th/cmm (150-400) 12/22/18 18:21 MPV 9.5 fl 12/22/18 18:21 Neutrophils % 57.3 % (40.0-80.0) 12/22/18 18:21 Lymphocytes % 26.9 % (20.0-50.0) 12/22/18 18:21 Monocytes % 13.3 % (2.0-10.0) H 12/22/18 18:21 Eosinophils % 2.2 % (0.0-5.0) 12/22/18 18:21 Basophils % 0.3 % (0.0-2.0) 12/22/18 18:21 Sodium 138 mEq/L (136-145) 12/22/18 18:21 Potassium 4.2 mEq/L (3.5-5.1) 12/22/18 18:21 Chloride 103 mEq/L (98-107) 12/22/18 18:21 Carbon Dioxide 27.4 mEq/L (21.0-31.0) 12/22/18 18:21 Anion Gap 11.8 (7.0-16.0) 12/22/18 18:21 BUN 19 mg/dL (7-25) 12/22/18 18:21 Creatinine 0.7 mg/dL (0.7-1.3) 12/22/18 18:21 Est GFR ( Amer) TNP 12/22/18 18:21 Est GFR (Non-Af Amer) TNP 12/22/18 18:21 BUN/Creatinine Ratio 27.1 12/22/18 18:21 Glucose 97 mg/dL (70-105) 12/22/18 18:21 Calcium 9.0 mg/dL (8.6-10.3) 12/22/18 18:21 Total Bilirubin 0.4 mg/dL (0.3-1.0) 12/22/18 18:21 AST 17 U/L (13-39) 12/22/18 18:21 ALT 10 U/L (7-52) 12/22/18 18:21 Alkaline Phosphatase 66 U/L (34-104) 12/22/18 18:21 Troponin I 0.05 ng/mL (0.01-0.05) 12/22/18 18:21 Total Protein 6.4 gm/dL (6.0-8.3) 12/22/18 18:21 Albumin 3.8 gm/dL (4.2-5.5) L 12/22/18 18:21 Globulin 2.6 gm/dL 12/22/18 18:21 Albumin/Globulin Ratio 1.5 (1.0-1.8) 12/22/18 18:21 Triglycerides 84 mg/dL (<150) 12/22/18 18:21 Cholesterol 155 mg/dL (<200) 12/22/18 18:21 LDL Cholesterol Direct 92 mg/dL (75-193) 12/22/18 18:21 HDL Cholesterol 51 mg/dL (23-92) 12/22/18 18:21 TSH 4.54 uIU/ml (0.34-5.60) 12/22/18 18:21 Salicylates < 25.0 mg/L (30.0-100.0) L 12/22/18 18:21 Acetaminophen < 10.0 ug/mL (10.0-30.0) L 12/22/18 18:21 Valproic Acid 21.2 ug/mL (50.0-100.0) L 12/24/18 06:15 Ethyl Alcohol < 10 mg/dL (0-10) 12/22/18 18:21 RPR NONREACTIVE (NONREACTIVE) 12/22/18 18:21 - Physical Exam Vitals and I&O: Vital Signs Temp 98.6 F 12/30/18 05:38 Pulse 71 12/30/18 09:00 Resp 19 12/30/18 05:38 BP 141/77 12/30/18 09:00 Pulse Ox 93 12/30/18 05:38 Intake & Output 12/29/18 12/30/18 12/30/18 18:59 06:59 18:59 Intake Total 480 180 Balance 480 180 Intake: Oral 360 180 Other 120 Other: # Voids 3 2 # Bowel Movements 1 0 Active Medications: Current Medications Acetaminophen (Tylenol Extra Strength) 500 mg PO Q6H PRN PRN Reason: Pain (Mild) Stop: 02/20/19 21:20 Acetaminophen (Tylenol) 650 mg PO Q6H PRN PRN Reason: Pain (Moderate) Stop: 02/20/19 21:45 Atorvastatin Calcium (Lipitor) 20 mg PO HS FLORENTIN Stop: 02/20/19 21:59 Last Admin: 12/29/18 21:03 Dose: 20 mg Carvedilol (Coreg) 6.25 mg PO BID FLORENTIN Stop: 02/21/19 08:59 Last Admin: 12/30/18 09:00 Dose: 6.25 mg Donepezil HCl (Aricept) 10 mg PO HS FLORENTIN Stop: 02/23/19 20:59 Last Admin: 12/29/18 21:04 Dose: 10 mg Levothyroxine Sodium (Synthroid) 0.075 mg PO QDAC FLORENTIN Stop: 02/21/19 07:29 Last Admin: 12/30/18 06:42 Dose: 0.075 mg Lorazepam (Ativan) 0.5 mg PO Q4HR PRN; Protocol PRN Reason: Anxiety Stop: 01/21/19 20:33 Last Admin: 12/30/18 11:20 Dose: 0.5 mg Memantine (Namenda) 5 mg PO BID FLORENTIN Stop: 02/22/19 08:59 Last Admin: 12/30/18 11:17 Dose: 5 mg Neomycin/Polymyxin/Bacitracin (Triple Antibiotic Pkt) 1 pkt TP DAILY FLORENTIN Stop: 02/24/19 08:59 Last Admin: 12/30/18 11:20 Dose: 1 pkt Pantoprazole Sodium (Protonix) 40 mg PO DAILY FLORENTIN Stop: 02/21/19 08:59 Last Admin: 12/30/18 09:00 Dose: 40 mg Phenytoin (Dilantin) 200 mg PO BID FLORENTIN Stop: 02/20/19 21:59 Last Admin: 12/30/18 09:00 Dose: 200 mg Quetiapine Fumarate (Seroquel) 50 mg PO BID FLORENTIN; Protocol Stop: 02/26/19 08:59 Last Admin: 12/30/18 11:15 Dose: 50 mg Quetiapine Fumarate (Seroquel) 50 mg PO HS FLORENTIN; Protocol Stop: 02/26/19 20:59 Last Admin: 12/29/18 21:03 Dose: 50 mg Valproate Sodium (Depakene) 500 mg PO BID FLORENTIN; Protocol Stop: 02/26/19 08:59 Last Admin: 12/30/18 09:00 Dose: 500 mg Zolpidem Tartrate (Ambien) 5 mg PO HS PRN PRN Reason: Insomnia Stop: 02/20/19 20:33 Last Admin: 12/28/18 21:31 Dose: 5 mg General: alert, NAD HEENT: NC/AT, PERRLA Neck: Supple, No JVD Lungs: other (no acute respiratory distress) Cardiovascular: RRR Abdomen: soft, non-tender, non-distended Extremities: excoriation, other (skin tear left hand) Neurological: alert Internal Medicine Assmt/Plan - Assessment Assessment: agitation HTN hx CVA/TIA Dyslipidemia Dementia - Plan Plan: continue home meds fall precautions monitor bp prn protocol Nutritional Asmnt/Malnutr-PDOC - Dietary Evaluation Malnutrition Findings (Please click <Entered> for more info): Nutritional Asmnt/Malnutrition Start: 12/28/18 11: 19 Text: Status: Complete Freq: Protocol: Document 12/28/18 11:19 JIL (Rec: 12/28/18 11:23 JIL [email or web address]) Nutritional Asmnt/Malnutrition Patient General Information Nutritional Screening Low Risk Diagnosis Psychosis Pertinent Medical Hx/Surgical Hx HTN, Bipolar disorder, Dementia, CVA/TIA, Dyslipidemia Subjective Information Pt is a 73-year-old male [facility]/t onset agitation and aggressive behavior f x3 days. HT: 6 FT WT: 158 LB (71.82 KG) BMI: 21.43 (Normal) GI: Soft, non-tender, round, noted umbilical hernia, asymptomatic BM: 12/27 x1 I/O: 240/Not Noted Skin: WNL, intact Isidoro: 15 Diet Order: Mechanical Soft, CIERRA Estimated Energy Needs: ( Geriatric, CBW) 7302-2527 kcals (25-30 kcals/ kg) 72-86 G Pro (1.0-1.2 g/kg) 8949-4553 ml (25-30 ml/kg) Pt is eating an estimated 60% of meals Per Meal/Nutrition Activity Record. Dietary is currently providing an estimated 2250 kcals and 105 gm Pro, per Pt PO intake this is providing an estimated 1350 kcals and 63gm Pro to meet 75 % kcal and 88% Pro needs- adequate. Current Diet Order/ Nutrition Support Mechanical Soft, CIERRA Pertinent Medications Lipitor, Coreg, Synthroid, Protonix Pertinent Labs 12/22: Hgb/Hct 13.8/40.9, Alb 3 .8 Nutritional Hx/Data Height 6 ft Height (Calculated Centimeters) 182.9 Current Weight (lbs) 158 lb Weight (Calculated Kilograms) 71.7 Weight (Calculated Grams) 63288.6 [place] Body Weight 178 lb (80.91 kg) % [place] Body Weight 89 Body Mass Index (BMI) 21.4 Weight Status Approriate GI Symptoms GI Symptoms None Last BM 12/27 x1 Skin Integrity/Comment: WNL, intact Isidoro: 15 Current %PO Fair (50-74%) Estimated Nutritional Goals BEE in Kcals: Using Current wt Calories/Kcals/Kg 25-30 Kcals Calculated 2279-8323 Protein: Using Current wt Protein g/k.0-1.2 Protein Calculated 72-86 Fluid: ml 6349-2207 ml (25-30 ml/kg) Nutritional Problem No current Nutrition Prob Problem No nutrition diagnosis at this time. Etiology n/a Signs/Symptoms: n/a Malnutrition Related to Morbid Obesity Malnutrition related to morbid obesity No Intervention/Recommendation Comments Continue with mechanical soft, CIERRA diet as ordered. Expected Outcomes/Goals Expected Outcomes/Goals 1. PO intake to continue to meet 75% of nutritional needs. 2. Monitor PO intake, wt, nutrition related labs, and skin integrity to trend WNL. 3. F/U as low risk in 7 days, 01/04
--- NOTE | 2018-12-30 15:34 | Progress Notes ---
DATE: SUBJECTIVE: Chart reviewed and patient interviewed. Also discussed patient's condition with staff and reviewed records and labs. The patient continued to be paranoid and is still easily agitated. The patient also is very hostile and aggressive with the staff and he is still mumbling in [place] language and threatening. The patient also still pacing up and down the unit in angry way. On the other hand, patient's medication was increased yesterday with no side effects. ASSESSMENT: The patient still can be dangerous to others and agitated. TREATMENT PLAN: Continue monitoring his behavior and his condition closely. Also, continue Depakote 500 mg twice a day and Seroquel 50 mg twice a day and 50 mg at bedtime and we will continue to follow up closely. [facility]# [id number]
--- NOTE | 2018-12-30 20:47 | Progress Notes ---
DATE: SUBJECTIVE: Chart was reviewed and the patient interviewed. Also discussed the patient's condition with the staff and reviewed records and labs. The patient is still having striking out behavior and he is still easily agitated and in irritable and angry mood. The patient also is restless. The patient also is still screaming and yelling at the staff and still needs close monitoring. Otherwise, the patient is compliant with taking medications. ASSESSMENT: The patient is still aggressive and can be dangerous to others. TREATMENT PLAN: Continue to monitor behavior and condition closely. Also, continue to work on his irritability and followup. Also, working on discharge plans. JOB# [id number]
[2018-12-30] MEDS: Atorvastatin Calcium 10 MG TAB PO SCH (21:38)
[2018-12-31] MEDS: Levothyroxine 0.075 Mg Tab PO SCH (06:56)
[2018-12-31] MEDS: Pantoprazole 40 mg EC Tab PO SCH (09:47)
[2018-12-31] MEDS: Triple Antibiotic 0.94 gm Pkt TP SCH (09:48)
--- NOTE | 2018-12-31 12:48 | Internal Medicine Prog Note ---
Internal Medicine Subjective - Subjective Service Date: 12/31/18 Patient is:: awake, confused Per staff patient has:: no episodes of fall, tolerating meds Internal Medicine Objective - Results Result Diagrams: 12/22/18 18:21 12/22/18 18:21 Recent Labs: Laboratory Last Values WBC 6.3 Th/cmm (4.8-10.8) 12/22/18 18:21 RBC 4.38 Mil/cmm (3.80-5.80) 12/22/18 18:21 Hgb 13.8 gm/dL (12-16) 12/22/18 18:21 Hct 40.9 % (41.0-60) L 12/22/18 18:21 MCV 93.4 fl (80-99) 12/22/18 18:21 MCH 31.5 pg (27.0-31.0) H 12/22/18 18:21 MCHC Differential 33.8 pg (28.0-36.0) 12/22/18 18:21 RDW 13.5 % (11.5-20.0) 12/22/18 18:21 Plt Count 161 Th/cmm (150-400) 12/22/18 18:21 MPV 9.5 fl 12/22/18 18:21 Neutrophils % 57.3 % (40.0-80.0) 12/22/18 18:21 Lymphocytes % 26.9 % (20.0-50.0) 12/22/18 18:21 Monocytes % 13.3 % (2.0-10.0) H 12/22/18 18:21 Eosinophils % 2.2 % (0.0-5.0) 12/22/18 18:21 Basophils % 0.3 % (0.0-2.0) 12/22/18 18:21 Sodium 138 mEq/L (136-145) 12/22/18 18:21 Potassium 4.2 mEq/L (3.5-5.1) 12/22/18 18:21 Chloride 103 mEq/L (98-107) 12/22/18 18:21 Carbon Dioxide 27.4 mEq/L (21.0-31.0) 12/22/18 18:21 Anion Gap 11.8 (7.0-16.0) 12/22/18 18:21 BUN 19 mg/dL (7-25) 12/22/18 18:21 Creatinine 0.7 mg/dL (0.7-1.3) 12/22/18 18:21 Est GFR ( Amer) TNP 12/22/18 18:21 Est GFR (Non-Af Amer) TNP 12/22/18 18:21 BUN/Creatinine Ratio 27.1 12/22/18 18:21 Glucose 97 mg/dL (70-105) 12/22/18 18:21 Calcium 9.0 mg/dL (8.6-10.3) 12/22/18 18:21 Total Bilirubin 0.4 mg/dL (0.3-1.0) 12/22/18 18:21 AST 17 U/L (13-39) 12/22/18 18:21 ALT 10 U/L (7-52) 12/22/18 18:21 Alkaline Phosphatase 66 U/L (34-104) 12/22/18 18:21 Troponin I 0.05 ng/mL (0.01-0.05) 12/22/18 18:21 Total Protein 6.4 gm/dL (6.0-8.3) 12/22/18 18:21 Albumin 3.8 gm/dL (4.2-5.5) L 12/22/18 18:21 Globulin 2.6 gm/dL 12/22/18 18:21 Albumin/Globulin Ratio 1.5 (1.0-1.8) 12/22/18 18:21 Triglycerides 84 mg/dL (<150) 12/22/18 18:21 Cholesterol 155 mg/dL (<200) 12/22/18 18:21 LDL Cholesterol Direct 92 mg/dL (75-193) 12/22/18 18:21 HDL Cholesterol 51 mg/dL (23-92) 12/22/18 18:21 TSH 4.54 uIU/ml (0.34-5.60) 12/22/18 18:21 Salicylates < 25.0 mg/L (30.0-100.0) L 12/22/18 18:21 Acetaminophen < 10.0 ug/mL (10.0-30.0) L 12/22/18 18:21 Valproic Acid 21.2 ug/mL (50.0-100.0) L 12/24/18 06:15 Ethyl Alcohol < 10 mg/dL (0-10) 12/22/18 18:21 RPR NONREACTIVE (NONREACTIVE) 12/22/18 18:21 - Physical Exam Vitals and I&O: Vital Signs Temp 98.8 F 12/30/18 20:29 Pulse 73 12/31/18 09:47 Resp 20 12/31/18 12:40 BP 152/74 12/31/18 09:47 Pulse Ox 96 12/30/18 20:29 Intake & Output 12/30/18 12/31/18 12/31/18 18:59 06:59 18:59 Intake Total 800 120 Balance 800 120 Intake: Oral 800 120 Other: # Voids 3 2 # Bowel Movements 0 0 Active Medications: Current Medications Acetaminophen (Tylenol Extra Strength) 500 mg PO Q6H PRN PRN Reason: Pain (Mild) Stop: 02/20/19 21:20 Acetaminophen (Tylenol) 650 mg PO Q6H PRN PRN Reason: Pain (Moderate) Stop: 02/20/19 21:45 Atorvastatin Calcium (Lipitor) 20 mg PO HS FLORENTIN Stop: 02/20/19 21:59 Last Admin: 12/30/18 21:38 Dose: 20 mg Carvedilol (Coreg) 6.25 mg PO BID FLORENTIN Stop: 02/21/19 08:59 Last Admin: 12/31/18 09:47 Dose: 6.25 mg Donepezil HCl (Aricept) 10 mg PO HS FLORENTIN Stop: 02/23/19 20:59 Last Admin: 12/30/18 21:38 Dose: 10 mg Levothyroxine Sodium (Synthroid) 0.075 mg PO QDAC FLORENTIN Stop: 02/21/19 07:29 Last Admin: 12/31/18 06:56 Dose: 0.075 mg Lorazepam (Ativan) 0.5 mg PO Q4HR PRN; Protocol PRN Reason: Anxiety Stop: 01/21/19 20:33 Last Admin: 12/31/18 09:47 Dose: 0.5 mg Memantine (Namenda) 5 mg PO BID FLORENTIN Stop: 02/22/19 08:59 Last Admin: 12/31/18 09:48 Dose: 5 mg Neomycin/Polymyxin/Bacitracin (Triple Antibiotic Pkt) 1 pkt TP DAILY FLORENTIN Stop: 02/24/19 08:59 Last Admin: 12/31/18 09:48 Dose: 1 pkt Pantoprazole Sodium (Protonix) 40 mg PO DAILY FLORENTIN Stop: 02/21/19 08:59 Last Admin: 12/31/18 09:47 Dose: 40 mg Phenytoin (Dilantin) 200 mg PO BID FLORENTIN Stop: 02/20/19 21:59 Last Admin: 12/31/18 09:47 Dose: 200 mg Quetiapine Fumarate (Seroquel) 50 mg PO BID FLORENTIN; Protocol Stop: 02/26/19 08:59 Last Admin: 12/31/18 09:47 Dose: 50 mg Quetiapine Fumarate (Seroquel) 50 mg PO HS FLORENTIN; Protocol Stop: 02/26/19 20:59 Last Admin: 12/30/18 21:38 Dose: 50 mg Valproate Sodium (Depakene) 500 mg PO BID FLORENTIN; Protocol Stop: 02/26/19 08:59 Last Admin: 12/31/18 09:48 Dose: 500 mg Zolpidem Tartrate (Ambien) 5 mg PO HS PRN PRN Reason: Insomnia Stop: 02/20/19 20:33 Last Admin: 12/28/18 21:31 Dose: 5 mg General: alert, NAD HEENT: NC/AT, PERRLA Neck: Supple, No JVD Lungs: other (no acute respiratory distress) Cardiovascular: RRR Abdomen: soft, non-tender, non-distended Extremities: excoriation, other (skin tear left hand) Neurological: alert Internal Medicine Assmt/Plan - Assessment Assessment: agitation HTN hx CVA/TIA Dyslipidemia Dementia - Plan Plan: continue home meds fall precautions monitor bp prn protocol Nutritional Asmnt/Malnutr-PDOC - Dietary Evaluation Malnutrition Findings (Please click <Entered> for more info): Nutritional Asmnt/Malnutrition Start: 12/28/18 11: 19 Text: Status: Complete Freq: Protocol: Document 12/28/18 11:19 JIL (Rec: 12/28/18 11:23 JIL [email or web address]) Nutritional Asmnt/Malnutrition Patient General Information Nutritional Screening Low Risk Diagnosis Psychosis Pertinent Medical Hx/Surgical Hx HTN, Bipolar disorder, Dementia, CVA/TIA, Dyslipidemia Subjective Information Pt is a 73-year-old male admitted on 12/22 from detention d/t onset agitation and aggressive behavior f x3 days. HT: 6 FT WT: 158 LB (71.82 KG) BMI: 21.43 (Normal) GI: Soft, non-tender, round, noted umbilical hernia, asymptomatic BM: 12/27 x1 I/O: 240/Not Noted Skin: WNL, intact Isidoro: 15 Diet Order: Mechanical Soft, CIERRA Estimated Energy Needs: ( Geriatric, CBW) 3976-6619 kcals (25-30 kcals/ kg) 72-86 G Pro (1.0-1.2 g/kg) 4880-2106 ml (25-30 ml/kg) Pt is eating an estimated 60% of meals Per Meal/Nutrition Activity Record. Dietary is currently providing an estimated 2250 kcals and 105 gm Pro, per Pt PO intake this is providing an estimated 1350 kcals and 63gm Pro to meet 75 % kcal and 88% Pro needs- adequate. Current Diet Order/ Nutrition Support Mechanical Soft, CIERRA Pertinent Medications Lipitor, Coreg, Synthroid, Protonix Pertinent Labs 12/22: Hgb/Hct 13.8/40.9, Alb 3 .8 Nutritional Hx/Data Height 6 ft Height (Calculated Centimeters) 182.9 Current Weight (lbs) 158 lb Weight (Calculated Kilograms) 71.7 Weight (Calculated Grams) 02780.6 [place] Body Weight 178 lb (80.91 kg) % [place] Body Weight 89 Body Mass Index (BMI) 21.4 Weight Status Approriate GI Symptoms GI Symptoms None Last BM 12/27 x1 Skin Integrity/Comment: WNL, intact Isidoro: 15 Current %PO Fair (50-74%) Estimated Nutritional Goals BEE in Kcals: Using Current wt Calories/Kcals/Kg 25-30 Kcals Calculated 4140-1764 Protein: Using Current wt Protein g/k.0-1.2 Protein Calculated 72-86 Fluid: ml 4018-5068 ml (25-30 ml/kg) Nutritional Problem No current Nutrition Prob Problem No nutrition diagnosis at this time. Etiology n/a Signs/Symptoms: n/a Malnutrition Related to Morbid Obesity Malnutrition related to morbid obesity No Intervention/Recommendation Comments Continue with mechanical soft, CIERRA diet as ordered. Expected Outcomes/Goals Expected Outcomes/Goals 1. PO intake to continue to meet 75% of nutritional needs. 2. Monitor PO intake, wt, nutrition related labs, and skin integrity to trend WNL. 3. F/U as low risk in 7 days, 01/04
[2018-12-31] MEDS: Atorvastatin Calcium 10 MG TAB PO SCH (21:44)
[2019-01-01] MEDS: Levothyroxine 0.075 Mg Tab PO SCH (06:31)
[2019-01-01] MEDS: Pantoprazole 40 mg EC Tab PO SCH (10:00)
[2019-01-01] MEDS: Triple Antibiotic 0.94 gm Pkt TP SCH (10:00)
--- NOTE | 2019-01-01 19:49 | Discharge Summary ---
DATE OF DISCHARGE: 01/01/2019 AGE: 73 SEX: Male. PHYSICIAN: Dr. Rubin. FINAL DIAGNOSIS AND PRIMARY DIAGNOSIS: Unspecified psychosis. SECONDARY DIAGNOSIS: Dementia, moderate to severe, with psychotic features. REASON FOR HOSPITALIZATION: The patient was admitted to the hospital from [facility] because of increased agitation and irritability and the patient was not able to follow any directions there and also was exhibiting poor ADLs. HOSPITAL COURSE: The patient continued to be irritable and angry mood. The patient was verbally abusive to staff and he was resistant to care and was extremely angry and irritable, but at the same time, he was compliant with taking his medications. The patient was given Seroquel and the dose adjusted to 50 mg twice a day and 50 mg at bedtime. Also, Depakote was increased to 500 mg twice a day. Gradually, the patient's affect was brighter. The patient was less irritable and less agitated. Also, interacting slightly more and was easier to redirect him. The patient was returned back to [facility]. Physical exam of the patient showed that the patient have hypothyroidism as well as hypertension and also degenerative disk disease and also history of seizures. The patient had no major medical problems while in the hospital. AFTER-DISCHARGE PLANS: The patient discharged from the hospital and returned to [facility] with plans for outpatient treatment and followup. EXPECTED OUTCOME AFTER DISCHARGE: Fair if the patient continued to take his psychotropic medications and follow up with discharge plans. [facility]# [id number]
--- NOTE | 2019-01-02 00:09 | Progress Notes ---
DATE: 12/31/2018 PSYCHIATRIC PROGRESS NOTE SUBJECTIVE: Chart reviewed and the patient interviewed. Also discussed the patient's condition with the staff and reviewed records and labs. The patient is still agitated and hostile. The patient also still demanding and is still easily angry and agitated and irritable mood. Also, is still having severe mood swings. Otherwise, the patient is compliant with taking his medications with no side effects of medications. ASSESSMENT: The patient is still agitated and is still aggressive. TREATMENT PLAN: Continue monitoring his behavior and his condition closely. Also, continue adjusting psychotropic medications and working on behavioral modifications. [facility]# [id number]
== END 2019-01-01 13:35 | DRG 885 ==
LOC: ER 17:54 → GERO 19:48
PROVIDERS: ADMIT Psychiatry & Neurology Psychiatry; ATTEND Psychiatry & Neurology Psychiatry
DX: F29 Unspecified psychosis not due to a substance or known physiological condition (principal); F03.91 Unspecified dementia, unspecified severity, with behavioral disturbance; E78.5 Hyperlipidemia, unspecified; F31.9 Bipolar disorder, unspecified; K21.9 Gastro-esophageal reflux disease without esophagitis; R45.1 Restlessness and agitation; I10 Essential (primary) hypertension; Z86.73 Personal history of transient ischemic attack (TIA), and cerebral infarction without residual deficits; Z82.49 Family history of ischemic heart disease and other diseases of the circulatory system
CPT/HCPCS: 36415-UA; 80053-TC; 80061-TC; 80164-TC; 80320-TC; 80329-TC; 83036-90; 84443-TC; 84484-TC; 85025-TC; 86592-TC; 93005; J1200; J1630; J2060; Z7610

== ENCOUNTER 2019-06-22 14:25 | Inpatient (IN) | payer MEDICARE, OTHER ==
[2019-06-23] MEDS ORDERED: Magnesium Hydroxide (MOM) 30 mL UDC PO PRN (00:35)
[2019-06-23] MEDS ORDERED: Maalox 30 mL Cup PO PRN (00:35)
[2019-06-23] MEDS: Multivitamin Tab PO SCH (09:51)
--- NOTE | 2019-06-23 17:23 | History & Physical ---
ADMIT DATE: 06/23/2019 CHIEF COMPLAINT: Medical evaluation in a patient who is admitted to the geropsych unit, who is medically cleared. HISTORY OF PRESENT ILLNESS: This is a 73-year-old male admitted from [facility], who is a longterm resident at [facility], who is medically cleared. The patient is Slovak speaking only, with confusion. The patient was noted to have increase in agitation and confusion at [facility]. For this reason, the patient is now admitted to the geropsych unit. PAST MEDICAL HISTORY: AFib, seizure, hypertension, hyperlipidemia, hyperthyroidism, TIA, history of falls, bilateral lower extremity chronic edema, dementia, and psychosis. PAST SURGICAL HISTORY: Prosthetic heart valve. SOCIAL HISTORY: The patient is a longterm resident. FAMILY HISTORY: Noncontributory. REVIEW OF SYSTEMS: Unable to obtain, the patient is very confused. PHYSICAL EXAMINATION: GENERAL: Elderly male, awake, confused, and in no apparent distress. VITAL SIGNS: Temperature 97.7, heart rate is 72, blood pressure 120/88, respirations 20, and O2 is 95%. HEENT: Head is normocephalic and atraumatic. NECK: Supple. No mass. LUNGS: Clear bilaterally. HEART: Regular rhythm. ABDOMEN: Soft and nontender. ASSESSMENT: Agitation, seizure disorder, atrial fibrillation, hypertension, hyperlipidemia, hyperthyroidism, history of transient ischemic attack, history of prosthetic heart valve, history of falls, history of bilateral lower extremity edema, dementia, and psychosis. PLAN: We will continue the patient's home medications. Fall precautions will be initiated. Continue the patient's medications from the SNF. We will monitor the patient's blood pressure closely. We will continue to monitor this patient. JOB# [id number]
[2019-06-23] MEDS: Eucerin Cream 16 oz Jar TP SCH (17:47)
[2019-06-23] MEDS: Atorvastatin Calcium 10 MG TAB PO SCH (20:58)
--- NOTE | 2019-06-23 22:06 | Psychiatric Evaluation ---
DATE OF SERVICE: 06/22/2019 AGE: 73. SEX: Male. PHYSICIAN: Dr. Rubin. CHIEF COMPLAINT: Confusion and agitation. HISTORY OF PRESENT ILLNESS: The patient is a 73-year-old male who was transferred from [facility] because of increased agitation and increased irritability. The patient also has been both paranoid and suspicious and has not been able to follow directions. He also has been confused. Otherwise, the patient has history of psychosis. PAST PSYCHIATRIC HISTORY: The patient has history of multiple psychiatric hospitalizations for treatment of psychosis. PAST MEDICAL HISTORY: The patient has history of hypertension as well as seizure disorder, atrial fib, hypothyroidism and transient ischemic attack. The patient also has prosthetic heart valve. SOCIAL HISTORY: The patient lives in [facility]. The patient denies a history of alcohol or any street drug use. ALLERGIES: No known allergies. MENTAL STATUS EXAMINATION: The patient appears older than stated age. Anxious. Confused. Suspicious and paranoid. Actively responding and actively talking to self. The patient denies any auditory or visual hallucinations, but actively responding. He denies any thoughts of suicide or homicide. The patient is alert, but confused and unable to assess his orientation or memory. The patient mainly speaks Bulgarian, but confused and was not able to answer any of the questions coherently. The patient denied suicide or homicide. The patient has poor insight and poor judgment. ASSESSMENT: PRIMARY DIAGNOSIS: Unspecified psychosis, severe, with behavioral disturbances. SECONDARY DIAGNOSIS: Dementia, moderate to severe, with behavior disturbances and psychotic features. MEDICAL DIAGNOSES: 1. Hypertension. 2. Seizure disorder. 3. Atrial fibrillation. 4. Hypothyroidism. 5. Transient ischemic attack. TREATMENT PLAN: We will monitor the patient's behavior and condition closely. We will continue Seroquel and Aricept, but will increase Namenda to 5 mg twice a day. We will adjust psychotropic medications. ESTIMATED LENGTH OF STAY: 5-7 days. PATIENT'S STRENGTHS AND WEAKNESSES: The patient's strength is not clear at this time except that he is calmer since he came to the unit. Weaknesses are his poor impulse control and poor judgment. AFTER DISCHARGE PLANS: Outpatient treatment and followup will continue as an outpatient in [facility]. [facility]# [id number]
[2019-06-24] MEDS: Levothyroxine 0.1 Mg Tab PO SCH (06:52)
[2019-06-24] MEDS: Eucerin Cream 16 oz Jar TP SCH ×2 (09:58→18:00)
[2019-06-24] MEDS: Multivitamin Tab PO SCH (09:58)
[2019-06-24] MEDS: Pantoprazole 40 mg EC Tab PO SCH (09:58)
[2019-06-24] MEDS: Atorvastatin Calcium 10 MG TAB PO SCH (20:46)
--- NOTE | 2019-06-24 22:45 | Progress Notes ---
DATE: 06/24/2019 SUBJECTIVE: Chart was reviewed and the patient interviewed. Also, discussed the patient's condition with the staff and reviewed records and labs. The patient continued to be rambling in Hungarian language and in a confused state. The patient also is still anxious and tense and is still uncooperative, but no agitation or aggressive behavior. He still has mood swings. ASSESSMENT: The patient is still confused and psychotic. TREATMENT PLAN: Continue monitoring behavior and condition closely. Also, continue Seroquel 50 mg at bedtime and Aricept 5 mg at bedtime and Namenda 5 mg twice a day as well as Depakote 250 mg twice a day. Also, we will get a Depakote blood level today and continue to follow up closely. JOB# [id number]
[2019-06-25] MEDS: Levothyroxine 0.1 Mg Tab PO SCH (06:37)
--- NOTE | 2019-06-25 09:13 | Progress Notes ---
DATE: SUBJECTIVE: Chart was reviewed and the patient interviewed. Also discussed the patient's condition with the staff and reviewed records and labs. The patient seems to be calmer, but is still guarded and is still preoccupied. The patient also still seems to be suspicious and paranoid. The patient also still needs prompt instructions and directions and also prompt instructions to take his medications. Otherwise, the patient is compliant with taking his medications with no side effects of medications. ASSESSMENT: The patient is still psychotic. TREATMENT PLAN: Continue to monitor his behavior and condition closely. Also, continue working on his effective coping and continue adjusting psychotropic medications and followup. [facility]# [id number]
[2019-06-25] MEDS: Multivitamin Tab PO SCH (09:37)
[2019-06-25] MEDS: Pantoprazole 40 mg EC Tab PO SCH (09:37)
[2019-06-25] MEDS: Eucerin Cream 16 oz Jar TP SCH ×2 (09:39→17:58)
--- NOTE | 2019-06-25 12:00 | Internal Medicine Prog Note ---
Internal Medicine Subjective - Subjective Patient is:: awake, kira chair, talking Per staff patient has:: no adverse event, no episodes of fall Internal Medicine Objective - Physical Exam Vitals and I&O: Vital Signs Temp 98.9 F 06/25/19 06:03 Pulse 70 06/25/19 09:36 Resp 20 06/25/19 08:00 BP 114/59 06/25/19 09:36 Pulse Ox 96 06/25/19 06:03 Intake & Output 06/24/19 06/25/19 06/25/19 18:59 06:59 18:59 Intake Total 1080 120 Output Total 1 Balance 1080 119 Intake: Oral 1080 120 Output: Urine/Stool Mix 1 Other: # Voids 4 1 # Bowel Movements 0 Active Medications: Current Medications Acetaminophen (Tylenol) 650 mg PO Q4H PRN PRN Reason: Pain (Mild 1-3) Stop: 08/22/19 00:34 Acetaminophen (Tylenol) 650 mg PO Q6H PRN PRN Reason: Temperature above 101 Stop: 08/22/19 00:53 Acetaminophen (Tylenol) 1,000 mg PO Q8HR PRN PRN Reason: Pain (Moderate 4-6) Stop: 08/22/19 00:55 Al Hydrox/Mg Hydrox/Simethicone (Maalox) 30 ml PO Q4HR PRN PRN Reason: GI DISTRESS Stop: 08/22/19 00:34 Atorvastatin Calcium (Lipitor) 20 mg PO HS [facility]; Protocol Stop: 08/22/19 20:59 Last Admin: 06/24/19 20:46 Dose: 20 mg Carvedilol (Coreg) 6.25 mg PO BID [facility] Stop: 08/22/19 16:59 Last Admin: 06/25/19 09:36 Dose: Not Given Donepezil HCl (Aricept) 5 mg PO HS [facility] Stop: 08/22/19 20:59 Last Admin: 06/24/19 20:46 Dose: 5 mg Levothyroxine Sodium (Synthroid) 0.1 mg PO QDAC [facility] Stop: 08/23/19 07:29 Last Admin: 06/25/19 06:37 Dose: 0.1 mg Lorazepam (Ativan) 0.5 mg PO Q4HR PRN; Protocol PRN Reason: Anxiety Stop: 07/23/19 00:34 Magnesium Hydroxide (Milk Of Magnesia) 30 ml PO HS PRN PRN Reason: Constipation Memantine (Namenda) 5 mg PO BID [facility] Stop: 08/22/19 08:59 Last Admin: 06/25/19 09:37 Dose: 5 mg Multi-Ingredient Cream (Eucerin Cream) 1 appl TP BID [facility] Stop: 08/22/19 16:59 Last Admin: 06/25/19 09:39 Dose: 1 appl Multivitamins/Vitamin C (Theragran) 1 tab PO DAILY [facility] Stop: 08/22/19 08:59 Last Admin: 06/25/19 09:37 Dose: 1 tab Pantoprazole Sodium (Protonix) 40 mg PO DAILY [facility] Stop: 08/23/19 08:59 Last Admin: 06/25/19 09:37 Dose: 40 mg Phenytoin (Dilantin) 125 mg PO BID [facility] Stop: 08/23/19 16:59 Last Admin: 06/25/19 09:38 Dose: 125 mg Quetiapine Fumarate (Seroquel) 50 mg PO HS [facility]; Protocol Stop: 08/22/19 20:59 Last Admin: 06/24/19 20:46 Dose: 50 mg Valproate Sodium (Depakene) 250 mg PO BID [facility]; Protocol Stop: 08/22/19 16:59 Last Admin: 06/25/19 09:39 Dose: 250 mg Zolpidem Tartrate (Ambien) 5 mg PO HS PRN PRN Reason: Insomnia Stop: 08/22/19 00:34 Last Admin: 06/23/19 21:02 Dose: 5 mg General: weak, demented, NAD HEENT: NC/AT, PERRLA Neck: Supple, No JVD Lungs: CTAB Cardiovascular: without murmur, other (s1, s2) Abdomen: soft, non-tender, non-distended Extremities: clear Internal Medicine Assmt/Plan - Assessment Assessment: Psychosis Afib Seizure HTN Hyperlipidemia Hyperthyroidism TIA Hx falls Dementia - Plan Plan: Continue current treatment plan. Continue current medications Continue to monitor VS Monitor Diet/Nutritional support. Psych management per Psychiatry. Pain Management. PT/OT prn Safety precaution, Fall precaution, frequent nursing round. Supportive care. Continue collaborating with consulting specialists, case management and nursing team
[2019-06-25] MEDS: Atorvastatin Calcium 10 MG TAB PO SCH (20:52)
[2019-06-26] MEDS: Levothyroxine 0.1 Mg Tab PO SCH (06:47)
[2019-06-26] MEDS: Multivitamin Tab PO SCH (09:44)
[2019-06-26] MEDS: Pantoprazole 40 mg EC Tab PO SCH (09:44)
[2019-06-26] MEDS: Eucerin Cream 16 oz Jar TP SCH ×3 (09:59→16:08)
--- NOTE | 2019-06-26 10:37 | Progress Notes ---
DATE: 06/26/2019 SUBJECTIVE: The patient was seen in the room. The patient is asleep, but easily arousable. The patient is very confused, easily gets frustrated and agitated, and poor impulse control. Otherwise, the patient appears to be in no acute distress. OBJECTIVE: VITAL SIGNS: Temperature 97.8, heart rate of 69, blood pressure 138/64, respirations 18, and 95% on room air. HEENT: Head is atraumatic and normocephalic. Eyes: Bilateral conjunctivae are clear. Bilateral pupils equal, round, and reactive. NECK: Supple. No JVD. CARDIOVASCULAR: S1 and S2, without murmur. PULMONARY: Clear to auscultation. GASTROINTESTINAL: Soft and nontender without guarding. Positive bowel sounds. MUSCULOSKELETAL: No clubbing. No cyanosis noted. ASSESSMENT: 1. Psychosis. 2. Dementia. 3. Hypertension. 4. Hyperlipidemia. 5. Atrial fibrillation. 6. Seizure disorder. 7. Hypothyroidism. 8. History of multiple falls. PLAN: We will keep the patient to inpatient Psychiatric Unit. We will follow up with a psychiatrist to monitor the patient's condition and behavior. We will put the patient on fall precautions. Treatment plans were discussed with the patient's nurse. Treatment plans were discussed with Dr. Gonzalez. JOB# [id number]
--- NOTE | 2019-06-26 19:49 | Progress Notes ---
DATE: 06/26/2019 SUBJECTIVE: Chart was reviewed and the patient was interviewed. Also, discussed the patient's condition with the staff and reviewed the records and the labs. The patient continued to be confused and is still anxious and restless. The patient also is still withdrawn and interacting minimally with others. Also, still has flat affect. Also, poor ADL and personal hygiene is still poor. Otherwise, patient has been compliant with taking his medications. The patient seems to be preoccupied and his affect is flat, but cooperative and trying to answer questions, but in a confused state. ASSESSMENT: The patient is still psychotic, but no major behavioral problems. TREATMENT PLAN: Continue current psychotropic medications including Depakote, Seroquel, Namenda, and Aricept. Also, continue to monitor seizure activities and seizure disorder and continue Dilantin. JOB# [id number]
[2019-06-26] MEDS: Atorvastatin Calcium 10 MG TAB PO SCH (21:44)
[2019-06-27] MEDS: Levothyroxine 0.1 Mg Tab PO SCH (06:45)
[2019-06-27] MEDS: Eucerin Cream 16 oz Jar TP SCH (09:57)
[2019-06-27] MEDS: Multivitamin Tab PO SCH (09:58)
[2019-06-27] MEDS: Pantoprazole 40 mg EC Tab PO SCH (09:58)
--- NOTE | 2019-06-27 18:08 | Progress Notes ---
DATE: SUBJECTIVE: Chart was reviewed and the patient interviewed. Also discussed the patient's condition with the staff and reviewed records and labs. The patient is still calm and cooperative with his treatment, but he is still suspicious and paranoid. The patient also is confused. He needs lots of redirections. He also is still restless and still needs prompt instructions to take medicine and to interact. At the same time, the patient denies any side effects of medications. ASSESSMENT: The patient is still agitated and is still psychotic and confused and needs prompt instructions. TREATMENT PLAN: Continue to monitor behavior and condition closely. Also, continue current medications and work on behavioral modification. JOB# [id number]
[2019-06-27] MEDS: Atorvastatin Calcium 10 MG TAB PO SCH (21:24)
--- NOTE | 2019-06-27 21:47 | Internal Medicine Prog Note ---
Internal Medicine Subjective - Subjective Patient is:: awake, kira chair, talking, confused Per staff patient has:: no adverse event, no episodes of fall Internal Medicine Objective - Physical Exam Vitals and I&O: Vital Signs Temp 97.9 F 06/27/19 20:13 Pulse 79 06/27/19 20:13 Resp 20 06/27/19 20:13 BP 130/61 06/27/19 20:13 Pulse Ox 97 06/27/19 20:13 Intake & Output 06/27/19 06/27/19 06/28/19 06:59 18:59 06:59 Intake Total 240 800 240 Balance 240 800 240 Intake: Oral 240 800 240 Other: # Voids 1 3 2 # Bowel Movements 1 Active Medications: Current Medications Acetaminophen (Tylenol) 650 mg PO Q4H PRN PRN Reason: Pain (Mild 1-3) Stop: 08/22/19 00:34 Acetaminophen (Tylenol) 650 mg PO Q6H PRN PRN Reason: Temperature above 101 Stop: 08/22/19 00:53 Acetaminophen (Tylenol) 1,000 mg PO Q8HR PRN PRN Reason: Pain (Moderate 4-6) Stop: 08/22/19 00:55 Al Hydrox/Mg Hydrox/Simethicone (Maalox) 30 ml PO Q4HR PRN PRN Reason: GI DISTRESS Stop: 08/22/19 00:34 Atorvastatin Calcium (Lipitor) 20 mg PO HS [facility]; Protocol Stop: 08/22/19 20:59 Last Admin: 06/27/19 21:24 Dose: 20 mg Carvedilol (Coreg) 6.25 mg PO BID [facility] Stop: 08/22/19 16:59 Last Admin: 06/27/19 17:29 Dose: 6.25 mg Donepezil HCl (Aricept) 5 mg PO HS [facility] Stop: 08/22/19 20:59 Last Admin: 06/27/19 21:24 Dose: 5 mg Levothyroxine Sodium (Synthroid) 0.1 mg PO QDAC [facility] Stop: 08/23/19 07:29 Last Admin: 06/27/19 06:45 Dose: 0.1 mg Lorazepam (Ativan) 0.5 mg PO Q4HR PRN; Protocol PRN Reason: Anxiety Stop: 07/23/19 00:34 Magnesium Hydroxide (Milk Of Magnesia) 30 ml PO HS PRN PRN Reason: Constipation Memantine (Namenda) 5 mg PO BID [facility] Stop: 08/22/19 08:59 Last Admin: 06/27/19 17:29 Dose: 5 mg Multi-Ingredient Cream (Eucerin Cream) 1 appl TP BID [facility] Stop: 08/22/19 16:59 Last Admin: 06/27/19 09:57 Dose: 1 appl Multivitamins/Vitamin C (Theragran) 1 tab PO DAILY [facility] Stop: 08/22/19 08:59 Last Admin: 06/27/19 09:58 Dose: 1 tab Pantoprazole Sodium (Protonix) 40 mg PO DAILY [facility] Stop: 08/23/19 08:59 Last Admin: 06/27/19 09:58 Dose: 40 mg Phenytoin (Dilantin) 125 mg PO BID [facility] Stop: 08/23/19 16:59 Last Admin: 06/27/19 17:30 Dose: 125 mg Quetiapine Fumarate (Seroquel) 50 mg PO HS [facility]; Protocol Stop: 08/22/19 20:59 Last Admin: 06/27/19 21:24 Dose: 50 mg Valproate Sodium (Depakene) 250 mg PO BID [facility]; Protocol Stop: 08/22/19 16:59 Last Admin: 06/27/19 17:30 Dose: 250 mg Zolpidem Tartrate (Ambien) 5 mg PO HS PRN PRN Reason: Insomnia Stop: 08/22/19 00:34 Last Admin: 06/27/19 21:24 Dose: 5 mg General: weak, demented, NAD HEENT: NC/AT, PERRLA Neck: Supple, No JVD Lungs: CTAB Cardiovascular: without murmur, other (s1, s2) Abdomen: soft, non-tender, non-distended Extremities: clear, other (BLE discoloration on silverio) Internal Medicine Assmt/Plan - Assessment Assessment: Psychosis Afib Seizure HTN Hyperlipidemia Hyperthyroidism TIA Hx falls Dementia - Plan Plan: Continue current treatment plan. Continue current medications Continue to monitor VS Monitor Diet/Nutritional support. Psych management per Psychiatry. Pain Management. PT/OT prn Safety precaution, Fall precaution, frequent nursing round. Supportive care. Continue collaborating with consulting specialists, case management and nursing team Nutritional Asmnt/Malnutr-PDOC - Dietary Evaluation Malnutrition Findings (Please click <Entered> for more info): Nutritional Asmnt/Malnutrition Start: 06/25/19 16: 00 Text: Status: Complete Freq: Protocol: Document 06/25/19 16:00 JIL (Rec: 06/25/19 16:02 [email or web address] [id number]) Nutritional Asmnt/Malnutrition Patient General Information Nutritional Screening Moderate Risk Diagnosis Psychosis Pertinent Medical Hx/Surgical Hx HTN, AFib, Seizure, hyperlipidemia, Hypothyroidism , TIA, FOSTER Lower Extremity Chronic Edema, Dementia, Psychosis Subjective Information Pt is a 73-year-old male admitted on 06/22 d/t increased agitation and confusion at nursing facility. Pt is eating an estimated 100% of meals Per Meal/Nutrition Activity Record. Dietary is currently providing an estimated 2200 kcals and 105 gm Pro to meet 100% kcal and 100+% Pro needs. Per wound care note (06/23), RT silverio, Dry, flaky skin with erythema, dark discoloration and scar tissue, present on admission., LT Silverio, Dry, flaky skin with erythema, dark discoloration multiple dried scabs, and scar tissue, present on admission. Anthropometrics HT: 6 FT WT: 260 LB (118.18 kg) ABW: 198 LB (90.23 kg) BMI: 35.26 (Obese, class II) GI/ Skin Integrity GI: WNL, Soft, Non-tender, Round BM: Not Noted I/O: 1200/1 (+1199) Skin: Abrasion, Erythema Isidoro: 17 Diet Order: Mechanical Soft, CIERRA Estimated Energy Needs: (Obese , ABW) 5740-9554 kcals (20-25 kcals/ kg) 70-90g Pro (0.8-1.0 g/kg) 1029-5677 ml (25-30 ml/kg) Current Diet Order/ Nutrition Support Mechanical Soft, CIERRA Pertinent Medications Maalox (PRN), Lipitor, Coreg, Synthroid, MOM (PRN), Theragran, Protonix Pertinent Labs 06/22: Bun/Cr 22/1.02, LDL 102 Nutritional Hx/Data Height 6 ft Height (Calculated Centimeters) 182.9 Current Weight (lbs) 260 lb Weight (Calculated Kilograms) 117.9 Weight (Calculated Grams) 421720.0 [place] Body Weight 178 LB (80.91 kg) % [place] Body Weight 146 Body Mass Index (BMI) 35.2 Weight Status Obese GI Symptoms Last BM Not Noted Skin Integrity/Comment: Skin: Abrasion, Erythema Isidoro: 17 Per wound care note (06/23), RT silverio, Dry, flaky skin with erythema, dark discoloration and scar tissue, present on admission., LT Silverio, Dry, flaky skin with erythema, dark discoloration multiple dried scabs, and scar tissue, present on admission. Current %PO Good (75-100%) Estimated Nutritional Goals BEE in Kcals: Adj wt of IBW Calories/Kcals/Kg 20-25 Kcals Calculated 6807-7346 Protein: Adj wt of IBW Protein g/k.8-1.0 Protein Calculated 70-90 Fluid: ml 5271-7496 ml (25-30 ml/kg) Nutritional Problem 1. Problem Problem Obesity Etiology r/t consistent energy overconsumption Signs/Symptoms: aeb BMI 35.26 (Obese, class II ). Malnutrition Alert Is there a minimum of two criteria No selected? Query Text:Check all the applicable criteria. A minimum of two criteria are recommended for diagnosis of either severe or non-severe malnutrition. Intervention/Recommendation Comments Continue Mechanical Soft, CIERRA diet as tolerated. Expected Outcomes/Goals Expected Outcomes/Goals 1.PO intake to continue to meet >75% of estimated nutritional needs. 2.Monitor PO intake, wt, nutrition related labs, and skin integrity to trend WNL. 3.Gradual weight loss (0.5-1.0 Lb/week), trending towards IBW. 4.F/U as low risk in 7-10 days , 07/02-07/05
[2019-06-28] MEDS: Levothyroxine 0.1 Mg Tab PO SCH (06:51)
[2019-06-28] MEDS: Pantoprazole 40 mg EC Tab PO SCH (09:34)
[2019-06-28] MEDS: Multivitamin Tab PO SCH (09:34)
[2019-06-28] MEDS: Eucerin Cream 16 oz Jar TP SCH ×2 (09:35→16:53)
--- NOTE | 2019-06-28 11:08 | Internal Medicine Prog Note ---
Internal Medicine Subjective - Subjective Service Date: 06/28/19 Patient seen and examined:: with staff Patient is:: awake, verbal, kira chair, talking, confused Patient Complaints of:: other (very restless.) Per staff patient has:: no adverse event, no episodes of fall Internal Medicine Objective - Physical Exam Vitals and I&O: Vital Signs Temp 96.4 F 06/28/19 05:48 Pulse 67 06/28/19 09:34 Resp 17 06/28/19 05:48 BP 142/72 06/28/19 09:34 Pulse Ox 93 06/28/19 05:48 Intake & Output 06/27/19 06/28/19 06/28/19 18:59 06:59 18:59 Intake Total 800 300 Balance 800 300 Intake: Oral 800 300 Other: # Voids 3 1 # Bowel Movements 1 0 Active Medications: Current Medications Acetaminophen (Tylenol) 650 mg PO Q4H PRN PRN Reason: Pain (Mild 1-3) Stop: 08/22/19 00:34 Acetaminophen (Tylenol) 650 mg PO Q6H PRN PRN Reason: Temperature above 101 Stop: 08/22/19 00:53 Acetaminophen (Tylenol) 1,000 mg PO Q8HR PRN PRN Reason: Pain (Moderate 4-6) Stop: 08/22/19 00:55 Al Hydrox/Mg Hydrox/Simethicone (Maalox) 30 ml PO Q4HR PRN PRN Reason: GI DISTRESS Stop: 08/22/19 00:34 Atorvastatin Calcium (Lipitor) 20 mg PO HS [facility]; Protocol Stop: 08/22/19 20:59 Last Admin: 06/27/19 21:24 Dose: 20 mg Carvedilol (Coreg) 6.25 mg PO BID [facility] Stop: 08/22/19 16:59 Last Admin: 06/28/19 09:34 Dose: 6.25 mg Donepezil HCl (Aricept) 10 mg PO HS [facility] Stop: 08/27/19 20:59 Levothyroxine Sodium (Synthroid) 0.1 mg PO QDAC [facility] Stop: 08/23/19 07:29 Last Admin: 06/28/19 06:51 Dose: 0.1 mg Lorazepam (Ativan) 0.5 mg PO Q4HR PRN; Protocol PRN Reason: Anxiety Stop: 07/23/19 00:34 Magnesium Hydroxide (Milk Of Magnesia) 30 ml PO HS PRN PRN Reason: Constipation Memantine (Namenda) 5 mg PO BID [facility] Stop: 08/22/19 08:59 Last Admin: 06/28/19 09:34 Dose: 5 mg Multi-Ingredient Cream (Eucerin Cream) 1 appl TP BID [facility] Stop: 08/22/19 16:59 Last Admin: 06/28/19 09:35 Dose: 1 appl Multivitamins/Vitamin C (Theragran) 1 tab PO DAILY [facility] Stop: 08/22/19 08:59 Last Admin: 06/28/19 09:34 Dose: 1 tab Pantoprazole Sodium (Protonix) 40 mg PO DAILY [facility] Stop: 08/23/19 08:59 Last Admin: 06/28/19 09:34 Dose: 40 mg Phenytoin (Dilantin) 125 mg PO BID [facility] Stop: 08/23/19 16:59 Last Admin: 06/28/19 09:32 Dose: 125 mg Quetiapine Fumarate (Seroquel) 50 mg PO HS [facility]; Protocol Stop: 08/22/19 20:59 Last Admin: 06/27/19 21:24 Dose: 50 mg Valproate Sodium (Depakene) 250 mg PO BID [facility]; Protocol Stop: 08/22/19 16:59 Last Admin: 06/28/19 09:31 Dose: 250 mg Zolpidem Tartrate (Ambien) 5 mg PO HS PRN PRN Reason: Insomnia Stop: 08/22/19 00:34 Last Admin: 06/27/19 21:24 Dose: 5 mg Physical Exam: Patient is very confused and still very restless, needs to be monitored. General: weak, demented, NAD HEENT: NC/AT, PERRLA Neck: Supple, No JVD Lungs: CTAB Cardiovascular: without murmur, other (s1, s2) Abdomen: soft, non-tender, non-distended Extremities: clear, other (BLE discoloration on silverio) Neurological: no change Internal Medicine Assmt/Plan - Assessment Assessment: Psychosis. Dementia. Hypertension. Hyperlipidemia. Atrial Fibrillation. Seizure disorder. Hypothyroidism. History of Multiple falls. - Plan Plan: Continue present meds as directed. Psych management as per Psych. Monitor vitals and labs. Supportive care. Monitor diet and nutritional support. Continue current treatment plan. Nutritional Asmnt/Malnutr-PDOC - Dietary Evaluation Malnutrition Findings (Please click <Entered> for more info): Nutritional Asmnt/Malnutrition Start: 06/25/19 16: 00 Text: Status: Complete Freq: Protocol: Document 06/25/19 16:00 JIL (Rec: 06/25/19 16:02 [email or web address]) Nutritional Asmnt/Malnutrition Patient General Information Nutritional Screening Moderate Risk Diagnosis Psychosis Pertinent Medical Hx/Surgical Hx HTN, AFib, Seizure, hyperlipidemia, Hypothyroidism , TIA, FOSTER Lower Extremity Chronic Edema, Dementia, Psychosis Subjective Information Pt is a 73-year-old male admitted on 06/22 d/t increased agitation and confusion at nursing facility. Pt is eating an estimated 100% of meals Per Meal/Nutrition Activity Record. Dietary is currently providing an estimated 2200 kcals and 105 gm Pro to meet 100% kcal and 100+% Pro needs. Per wound care note (06/23), RT silverio, Dry, flaky skin with erythema, dark discoloration and scar tissue, present on admission., LT Silverio, Dry, flaky skin with erythema, dark discoloration multiple dried scabs, and scar tissue, present on admission. Anthropometrics HT: 6 FT WT: 260 LB (118.18 kg) ABW: 198 LB (90.23 kg) BMI: 35.26 (Obese, class II) GI/ Skin Integrity GI: WNL, Soft, Non-tender, Round BM: Not Noted I/O: 1200/1 (+1199) Skin: Abrasion, Erythema Isidoro: 17 Diet Order: Mechanical Soft, CIERRA Estimated Energy Needs: (Obese , ABW) 9455-1069 kcals (20-25 kcals/ kg) 70-90g Pro (0.8-1.0 g/kg) 4725-2573 ml (25-30 ml/kg) Current Diet Order/ Nutrition Support Mechanical Soft, CIERRA Pertinent Medications Maalox (PRN), Lipitor, Coreg, Synthroid, MOM (PRN), Theragran, Protonix Pertinent Labs 06/22: Bun/Cr 22/1.02, LDL 102 Nutritional Hx/Data Height 1.83 m Height (Calculated Centimeters) 182.9 Current Weight (lbs) 117.934 kg Weight (Calculated Kilograms) 117.9 Weight (Calculated Grams) 422884.0 [place] Body Weight 178 LB (80.91 kg) % [place] Body Weight 146 Body Mass Index (BMI) 35.2 Weight Status Obese GI Symptoms Last BM Not Noted Skin Integrity/Comment: Skin: Abrasion, Erythema Isidoro: 17 Per wound care note (06/23), RT silverio, Dry, flaky skin with erythema, dark discoloration and scar tissue, present on admission., LT Silverio, Dry, flaky skin with erythema, dark discoloration multiple dried scabs, and scar tissue, present on admission. Current %PO Good (75-100%) Estimated Nutritional Goals BEE in Kcals: Adj wt of IBW Calories/Kcals/Kg 20-25 Kcals Calculated 5555-8467 Protein: Adj wt of IBW Protein g/k.8-1.0 Protein Calculated 70-90 Fluid: ml 9693-3099 ml (25-30 ml/kg) Nutritional Problem 1. Problem Problem Obesity Etiology r/t consistent energy overconsumption Signs/Symptoms: aeb BMI 35.26 (Obese, class II ). Malnutrition Alert Is there a minimum of two criteria No selected? Query Text:Check all the applicable criteria. A minimum of two criteria are recommended for diagnosis of either severe or non-severe malnutrition. Intervention/Recommendation Comments Continue Mechanical Soft, CIERRA diet as tolerated. Expected Outcomes/Goals Expected Outcomes/Goals 1.PO intake to continue to meet >75% of estimated nutritional needs. 2.Monitor PO intake, wt, nutrition related labs, and skin integrity to trend WNL. 3.Gradual weight loss (0.5-1.0 Lb/week), trending towards IBW. 4.F/U as low risk in 7-10 days , 07/02-07/05
[2019-06-28] MEDS: Atorvastatin Calcium 10 MG TAB PO SCH (21:29)
--- NOTE | 2019-06-29 01:38 | Progress Notes ---
DATE: 06/28/2019 SUBJECTIVE: Chart was reviewed and the patient interviewed. Also discussed the patient's condition with the staff and reviewed records and labs. The patient is still confused and still has disorganized thoughts. Also, still easily agitated. The patient also is still mumbling and rambling in [place] language with difficulty to express himself about his feelings. Otherwise, the patient continued to comply with taking medications with no side effects. ASSESSMENT: The patient is still confused and agitated. TREATMENT PLAN: Continue monitoring behavior and condition closely. Also, increase Aricept to 10 mg every day and continue to follow up. JOB# [id number]
[2019-06-29] MEDS: Levothyroxine 0.1 Mg Tab PO SCH (06:54)
[2019-06-29] MEDS: Pantoprazole 40 mg EC Tab PO SCH (09:08)
[2019-06-29] MEDS: Multivitamin Tab PO SCH (09:08)
[2019-06-29] MEDS: Eucerin Cream 16 oz Jar TP SCH ×2 (09:09→17:40)
--- NOTE | 2019-06-29 11:17 | Progress Notes ---
DATE: 06/29/2019 SUBJECTIVE: Chart reviewed and the patient interviewed. Also discussed the patient's condition with the staff and reviewed records and labs. The patient is still easily agitated and still has labile affect and disorganized thoughts. The patient also is still forgetful and needs lots of redirections. The patient also still needs a lot of assistance and help with his ADLs. Otherwise, the patient is compliant with taking his medications with no side effects of medications. ASSESSMENT: The patient is still psychotic and forgetful and needs close monitoring. TREATMENT PLAN: Continue current medications and treatment. Also, we will increase Aricept to 10 mg every day and continue to follow up. JOB# [id number]
--- NOTE | 2019-06-29 17:26 | Internal Medicine Prog Note ---
Internal Medicine Subjective - Subjective Service Date: 06/29/19 Patient is:: awake, verbal, kira chair, talking, confused Patient Complaints of:: other (very restless.) Per staff patient has:: no adverse event, no episodes of fall Internal Medicine Objective - Physical Exam Vitals and I&O: Vital Signs Temp 97.4 F 06/29/19 15:35 Pulse 60 06/29/19 15:35 Resp 20 06/29/19 15:35 BP 121/54 06/29/19 15:35 Pulse Ox 93 06/29/19 15:35 Intake & Output 06/28/19 06/29/19 06/29/19 18:59 06:59 18:59 Intake Total 1200 240 Output Total 1 Balance 1200 239 Intake: Oral 1200 240 Output: Urine/Stool Mix 1 Other: # Voids 3 1 # Bowel Movements 1 1 Active Medications: Current Medications Acetaminophen (Tylenol) 650 mg PO Q4H PRN PRN Reason: Pain (Mild 1-3) Stop: 08/22/19 00:34 Acetaminophen (Tylenol) 650 mg PO Q6H PRN PRN Reason: Temperature above 101 Stop: 08/22/19 00:53 Acetaminophen (Tylenol) 1,000 mg PO Q8HR PRN PRN Reason: Pain (Moderate 4-6) Stop: 08/22/19 00:55 Al Hydrox/Mg Hydrox/Simethicone (Maalox) 30 ml PO Q4HR PRN PRN Reason: GI DISTRESS Stop: 08/22/19 00:34 Atorvastatin Calcium (Lipitor) 20 mg PO HS [facility]; Protocol Stop: 08/22/19 20:59 Last Admin: 06/28/19 21:29 Dose: 20 mg Carvedilol (Coreg) 6.25 mg PO BID [facility] Stop: 08/22/19 16:59 Last Admin: 06/29/19 09:09 Dose: 6.25 mg Donepezil HCl (Aricept) 10 mg PO HS [facility] Stop: 08/27/19 20:59 Last Admin: 06/28/19 21:29 Dose: 10 mg Levothyroxine Sodium (Synthroid) 0.1 mg PO QDAC [facility] Stop: 08/23/19 07:29 Last Admin: 06/29/19 06:54 Dose: 0.1 mg Lorazepam (Ativan) 0.5 mg PO Q4HR PRN; Protocol PRN Reason: Anxiety Stop: 07/23/19 00:34 Magnesium Hydroxide (Milk Of Magnesia) 30 ml PO HS PRN PRN Reason: Constipation Memantine (Namenda) 10 mg PO BID [facility] Stop: 08/28/19 08:59 Last Admin: 06/29/19 09:12 Dose: 10 mg Multi-Ingredient Cream (Eucerin Cream) 1 appl TP BID [facility] Stop: 08/22/19 16:59 Last Admin: 06/29/19 09:09 Dose: 1 appl Multivitamins/Vitamin C (Theragran) 1 tab PO DAILY [facility] Stop: 08/22/19 08:59 Last Admin: 06/29/19 09:08 Dose: 1 tab Pantoprazole Sodium (Protonix) 40 mg PO DAILY [facility] Stop: 08/23/19 08:59 Last Admin: 06/29/19 09:08 Dose: 40 mg Phenytoin (Dilantin) 125 mg PO BID [facility] Stop: 08/27/19 16:59 Last Admin: 06/29/19 09:08 Dose: 125 mg Quetiapine Fumarate (Seroquel) 50 mg PO HS [facility]; Protocol Stop: 08/22/19 20:59 Last Admin: 06/28/19 21:30 Dose: 50 mg Valproate Sodium (Depakene) 250 mg PO BID [facility]; Protocol Stop: 08/22/19 16:59 Last Admin: 06/29/19 09:08 Dose: 250 mg Zolpidem Tartrate (Ambien) 5 mg PO HS PRN PRN Reason: Insomnia Stop: 08/22/19 00:34 Last Admin: 06/28/19 21:30 Dose: 5 mg General: weak, demented, NAD HEENT: NC/AT, PERRLA Neck: Supple, No JVD Lungs: CTAB Cardiovascular: without murmur, other (s1, s2) Abdomen: soft, non-tender, non-distended Extremities: clear, other (BLE discoloration on silverio) Neurological: no change Nutritional Asmnt/Malnutr-PDOC - Dietary Evaluation Malnutrition Findings (Please click <Entered> for more info): Nutritional Asmnt/Malnutrition Start: 06/25/19 16: 00 Text: Status: Complete Freq: Protocol: Document 06/25/19 16:00 JIL (Rec: 06/25/19 16:02 JIL [email or web address]) Nutritional Asmnt/Malnutrition Patient General Information Nutritional Screening Moderate Risk Diagnosis Psychosis Pertinent Medical Hx/Surgical Hx HTN, AFib, Seizure, hyperlipidemia, Hypothyroidism , TIA, FOSTER Lower Extremity Chronic Edema, Dementia, Psychosis Subjective Information Pt is a 73-year-old male admitted on 06/22 d/t increased agitation and confusion at nursing facility. Pt is eating an estimated 100% of meals Per Meal/Nutrition Activity Record. Dietary is currently providing an estimated 2200 kcals and 105 gm Pro to meet 100% kcal and 100+% Pro needs. Per wound care note (06/23), RT silverio, Dry, flaky skin with erythema, dark discoloration and scar tissue, present on admission., LT Silverio, Dry, flaky skin with erythema, dark discoloration multiple dried scabs, and scar tissue, present on admission. Anthropometrics HT: 6 FT WT: 260 LB (118.18 kg) ABW: 198 LB (90.23 kg) BMI: 35.26 (Obese, class II) GI/ Skin Integrity GI: WNL, Soft, Non-tender, Round BM: Not Noted I/O: 1200/1 (+1199) Skin: Abrasion, Erythema Isidoro: 17 Diet Order: Mechanical Soft, CIERRA Estimated Energy Needs: (Obese , ABW) 0255-0985 kcals (20-25 kcals/ kg) 70-90g Pro (0.8-1.0 g/kg) 1369-3922 ml (25-30 ml/kg) Current Diet Order/ Nutrition Support Mechanical Soft, CIERRA Pertinent Medications Maalox (PRN), Lipitor, Coreg, Synthroid, MOM (PRN), Theragran, Protonix Pertinent Labs 06/22: Bun/Cr 22/1.02, LDL 102 Nutritional Hx/Data Height 6 ft Height (Calculated Centimeters) 182.9 Current Weight (lbs) 260 lb Weight (Calculated Kilograms) 117.9 Weight (Calculated Grams) 548820.0 [place] Body Weight 178 LB (80.91 kg) % [place] Body Weight 146 Body Mass Index (BMI) 35.2 Weight Status Obese GI Symptoms Last BM Not Noted Skin Integrity/Comment: Skin: Abrasion, Erythema Isidoro: 17 Per wound care note (06/23), RT silverio, Dry, flaky skin with erythema, dark discoloration and scar tissue, present on admission., LT Silverio, Dry, flaky skin with erythema, dark discoloration multiple dried scabs, and scar tissue, present on admission. Current %PO Good (75-100%) Estimated Nutritional Goals BEE in Kcals: Adj wt of IBW Calories/Kcals/Kg 20-25 Kcals Calculated 5381-4924 Protein: Adj wt of IBW Protein g/k.8-1.0 Protein Calculated 70-90 Fluid: ml 2251-5536 ml (25-30 ml/kg) Nutritional Problem 1. Problem Problem Obesity Etiology r/t consistent energy overconsumption Signs/Symptoms: aeb BMI 35.26 (Obese, class II ). Malnutrition Alert Is there a minimum of two criteria No selected? Query Text:Check all the applicable criteria. A minimum of two criteria are recommended for diagnosis of either severe or non-severe malnutrition. Intervention/Recommendation Comments Continue Mechanical Soft, CIERRA diet as tolerated. Expected Outcomes/Goals Expected Outcomes/Goals 1.PO intake to continue to meet >75% of estimated nutritional needs. 2.Monitor PO intake, wt, nutrition related labs, and skin integrity to trend WNL. 3.Gradual weight loss (0.5-1.0 Lb/week), trending towards IBW. 4.F/U as low risk in 7-10 days , 07/02-07/05
[2019-06-29] MEDS: Atorvastatin Calcium 10 MG TAB PO SCH (20:27)
[2019-06-30] MEDS: Levothyroxine 0.1 Mg Tab PO SCH (06:37)
[2019-06-30] MEDS: Pantoprazole 40 mg EC Tab PO SCH (08:12)
[2019-06-30] MEDS: Multivitamin Tab PO SCH (08:12)
[2019-06-30] MEDS: Eucerin Cream 16 oz Jar TP SCH ×2 (09:11→16:16)
--- NOTE | 2019-06-30 11:07 | Internal Medicine Prog Note ---
Internal Medicine Subjective - Subjective Service Date: 06/30/19 Patient seen and examined:: with staff Patient is:: awake, verbal, kira chair, talking, confused Patient Complaints of:: other (very restless.) Per staff patient has:: no adverse event, no episodes of fall Internal Medicine Objective - Physical Exam Vitals and I&O: Vital Signs Temp 97.2 F 06/30/19 06:18 Pulse 66 06/30/19 08:12 Resp 17 06/30/19 08:00 BP 115/62 06/30/19 08:12 Pulse Ox 100 06/30/19 06:18 Intake & Output 06/29/19 06/30/19 06/30/19 18:59 06:59 18:59 Intake Total 850 360 Output Total 1 Balance 850 359 Intake: Oral 850 360 Output: Urine/Stool Mix 1 Other: # Voids 4 2 # Bowel Movements 1 1 Active Medications: Current Medications Acetaminophen (Tylenol) 650 mg PO Q4H PRN PRN Reason: Pain (Mild 1-3) Stop: 08/22/19 00:34 Acetaminophen (Tylenol) 650 mg PO Q6H PRN PRN Reason: Temperature above 101 Stop: 08/22/19 00:53 Acetaminophen (Tylenol) 1,000 mg PO Q8HR PRN PRN Reason: Pain (Moderate 4-6) Stop: 08/22/19 00:55 Al Hydrox/Mg Hydrox/Simethicone (Maalox) 30 ml PO Q4HR PRN PRN Reason: GI DISTRESS Stop: 08/22/19 00:34 Atorvastatin Calcium (Lipitor) 20 mg PO HS [facility]; Protocol Stop: 08/22/19 20:59 Last Admin: 06/29/19 20:27 Dose: 20 mg Carvedilol (Coreg) 6.25 mg PO BID [facility] Stop: 08/22/19 16:59 Last Admin: 06/30/19 08:12 Dose: 6.25 mg Donepezil HCl (Aricept) 10 mg PO HS [facility] Stop: 08/27/19 20:59 Last Admin: 06/29/19 20:27 Dose: 10 mg Levothyroxine Sodium (Synthroid) 0.1 mg PO QDAC [facility] Stop: 08/23/19 07:29 Last Admin: 06/30/19 06:37 Dose: 0.1 mg Lorazepam (Ativan) 0.5 mg PO Q4HR PRN; Protocol PRN Reason: Anxiety Stop: 07/23/19 00:34 Magnesium Hydroxide (Milk Of Magnesia) 30 ml PO HS PRN PRN Reason: Constipation Memantine (Namenda) 10 mg PO BID [facility] Stop: 08/28/19 08:59 Last Admin: 06/30/19 08:12 Dose: 10 mg Multi-Ingredient Cream (Eucerin Cream) 1 appl TP BID [facility] Stop: 08/22/19 16:59 Last Admin: 06/30/19 09:11 Dose: 1 appl Multivitamins/Vitamin C (Theragran) 1 tab PO DAILY [facility] Stop: 08/22/19 08:59 Last Admin: 06/30/19 08:12 Dose: 1 tab Pantoprazole Sodium (Protonix) 40 mg PO DAILY [facility] Stop: 08/23/19 08:59 Last Admin: 06/30/19 08:12 Dose: 40 mg Phenytoin (Dilantin) 125 mg PO BID [facility] Stop: 08/27/19 16:59 Last Admin: 06/30/19 08:12 Dose: 125 mg Quetiapine Fumarate (Seroquel) 50 mg PO HS [facility]; Protocol Stop: 08/22/19 20:59 Last Admin: 06/29/19 20:27 Dose: 50 mg Valproate Sodium (Depakene) 250 mg PO BID [facility]; Protocol Stop: 08/22/19 16:59 Last Admin: 06/30/19 08:12 Dose: 250 mg Zolpidem Tartrate (Ambien) 5 mg PO HS PRN PRN Reason: Insomnia Stop: 08/22/19 00:34 Last Admin: 06/28/19 21:30 Dose: 5 mg Physical Exam: Patient is very forgetful and psychotic, needs to be monitored closely. General: weak, demented, NAD HEENT: NC/AT, PERRLA Neck: Supple, No JVD Lungs: CTAB Cardiovascular: without murmur, other (s1, s2) Abdomen: soft, non-tender, non-distended Extremities: clear, other (BLE discoloration on silverio) Neurological: no change Internal Medicine Assmt/Plan - Assessment Assessment: Psychosis. Dementia. Hypertension. Hyperlipidemia. Atrial Fibrillation. Seizure disorder. Hypothyroidism. History of Multiple falls. - Plan Plan: Continue present meds as directed. Psych management as per Psych. Monitor vitals and labs. Supportive care. Monitor diet and nutritional support. Continue current treatment plan. Nutritional Asmnt/Malnutr-PDOC - Dietary Evaluation Malnutrition Findings (Please click <Entered> for more info): Nutritional Asmnt/Malnutrition Start: 06/25/19 16: 00 Text: Status: Complete Freq: Protocol: Document 06/25/19 16:00 JIL (Rec: 06/25/19 16:02 JIL [email or web address]) Nutritional Asmnt/Malnutrition Patient General Information Nutritional Screening Moderate Risk Diagnosis Psychosis Pertinent Medical Hx/Surgical Hx HTN, AFib, Seizure, hyperlipidemia, Hypothyroidism , TIA, FOSTER Lower Extremity Chronic Edema, Dementia, Psychosis Subjective Information Pt is a 73-year-old male admitted on 06/22 d/t increased agitation and confusion at nursing facility. Pt is eating an estimated 100% of meals Per Meal/Nutrition Activity Record. Dietary is currently providing an estimated 2200 kcals and 105 gm Pro to meet 100% kcal and 100+% Pro needs. Per wound care note (06/23), RT silverio, Dry, flaky skin with erythema, dark discoloration and scar tissue, present on admission., LT Islverio, Dry, flaky skin with erythema, dark discoloration multiple dried scabs, and scar tissue, present on admission. Anthropometrics HT: 6 FT WT: 260 LB (118.18 kg) ABW: 198 LB (90.23 kg) BMI: 35.26 (Obese, class II) GI/ Skin Integrity GI: WNL, Soft, Non-tender, Round BM: Not Noted I/O: 1200/1 (+1199) Skin: Abrasion, Erythema Isidoro: 17 Diet Order: Mechanical Soft, CIERRA Estimated Energy Needs: (Obese , ABW) 4298-5216 kcals (20-25 kcals/ kg) 70-90g Pro (0.8-1.0 g/kg) 3156-6976 ml (25-30 ml/kg) Current Diet Order/ Nutrition Support Mechanical Soft, CIERRA Pertinent Medications Maalox (PRN), Lipitor, Coreg, Synthroid, MOM (PRN), Theragran, Protonix Pertinent Labs 06/22: Bun/Cr 22/1.02, LDL 102 Nutritional Hx/Data Height 1.83 m Height (Calculated Centimeters) 182.9 Current Weight (lbs) 117.934 kg Weight (Calculated Kilograms) 117.9 Weight (Calculated Grams) 313143.0 [place] Body Weight 178 LB (80.91 kg) % [place] Body Weight 146 Body Mass Index (BMI) 35.2 Weight Status Obese GI Symptoms Last BM Not Noted Skin Integrity/Comment: Skin: Abrasion, Erythema Isidoro: 17 Per wound care note (06/23), RT silverio, Dry, flaky skin with erythema, dark discoloration and scar tissue, present on admission., LT Silverio, Dry, flaky skin with erythema, dark discoloration multiple dried scabs, and scar tissue, present on admission. Current %PO Good (75-100%) Estimated Nutritional Goals BEE in Kcals: Adj wt of IBW Calories/Kcals/Kg 20-25 Kcals Calculated 5358-5415 Protein: Adj wt of IBW Protein g/k.8-1.0 Protein Calculated 70-90 Fluid: ml 3722-8861 ml (25-30 ml/kg) Nutritional Problem 1. Problem Problem Obesity Etiology r/t consistent energy overconsumption Signs/Symptoms: aeb BMI 35.26 (Obese, class II ). Malnutrition Alert Is there a minimum of two criteria No selected? Query Text:Check all the applicable criteria. A minimum of two criteria are recommended for diagnosis of either severe or non-severe malnutrition. Intervention/Recommendation Comments Continue Mechanical Soft, CIERRA diet as tolerated. Expected Outcomes/Goals Expected Outcomes/Goals 1.PO intake to continue to meet >75% of estimated nutritional needs. 2.Monitor PO intake, wt, nutrition related labs, and skin integrity to trend WNL. 3.Gradual weight loss (0.5-1.0 Lb/week), trending towards IBW. 4.F/U as low risk in 7-10 days , 07/02-07/05
[2019-06-30] MEDS: Atorvastatin Calcium 10 MG TAB PO SCH (20:07)
[2019-07-01] MEDS: Levothyroxine 0.1 Mg Tab PO SCH (06:31)
[2019-07-01] MEDS: Multivitamin Tab PO SCH (08:17)
[2019-07-01] MEDS: Pantoprazole 40 mg EC Tab PO SCH (08:17)
[2019-07-01] MEDS: Eucerin Cream 16 oz Jar TP SCH ×2 (10:10→17:13)
--- NOTE | 2019-07-01 10:13 | Progress Notes ---
DATE: SUBJECTIVE: Chart was reviewed and the patient interviewed. Also discussed the patient's condition with the staff and reviewed records and labs. The patient is still depressed and anxious. The patient also is still withdrawn and guarded and forgetful and unable to express himself or his feelings. The patient also still has episodes of agitation and easily agitated when provoked. Otherwise, he is isolative and wants to be left alone most of the time. ASSESSMENT: The patient is still psychotic with episodes of agitation. TREATMENT PLAN: Continue to monitor behavior and condition closely. Also, we will get a Depakote blood level. Also, Namenda was increased yesterday to 10 mg twice a day. We will continue same dose and continue to monitor behavior and followup. JOB# [id number]
--- NOTE | 2019-07-01 10:13 | Progress Notes ---
DATE: SUBJECTIVE: Chart was reviewed and the patient interviewed. Also discussed the patient's condition with the staff and reviewed records and labs. The patient continued to mumble in [place] language. The patient also is still restless and still wants to be left alone and stays by herself most of the time. The patient also still seems to be suspicious and paranoid. Otherwise, the patient is compliant with taking his medications with no side effects of medications. ASSESSMENT: The patient is still psychotic and still needs close monitoring. TREATMENT PLAN: Continue to monitor behavior and condition closely. Also, continue adjusting psychotropic medications and work on behavioral modification. JOB# [id number]
--- NOTE | 2019-07-01 14:04 | Internal Medicine Prog Note ---
Internal Medicine Subjective - Subjective Service Date: 07/01/19 Patient is:: awake, verbal, kira chair, talking, confused Patient Complaints of:: other (very restless.) Per staff patient has:: no adverse event, no episodes of fall Internal Medicine Objective - Physical Exam Vitals and I&O: Vital Signs Temp 97.6 F 07/01/19 06:15 Pulse 61 07/01/19 08:17 Resp 17 07/01/19 08:00 BP 133/55 07/01/19 08:17 Pulse Ox 95 07/01/19 06:15 Intake & Output 06/30/19 07/01/19 07/01/19 18:59 06:59 18:59 Intake Total 1200 120 Balance 1200 120 Intake: Oral 1200 120 Other: # Voids 4 2 # Bowel Movements 0 0 Active Medications: Current Medications Acetaminophen (Tylenol) 650 mg PO Q4H PRN PRN Reason: Pain (Mild 1-3) Stop: 08/22/19 00:34 Acetaminophen (Tylenol) 650 mg PO Q6H PRN PRN Reason: Temperature above 101 Stop: 08/22/19 00:53 Acetaminophen (Tylenol) 1,000 mg PO Q8HR PRN PRN Reason: Pain (Moderate 4-6) Stop: 08/22/19 00:55 Al Hydrox/Mg Hydrox/Simethicone (Maalox) 30 ml PO Q4HR PRN PRN Reason: GI DISTRESS Stop: 08/22/19 00:34 Atorvastatin Calcium (Lipitor) 20 mg PO HS [facility]; Protocol Stop: 08/22/19 20:59 Last Admin: 06/30/19 20:07 Dose: 20 mg Carvedilol (Coreg) 6.25 mg PO BID [facility] Stop: 08/22/19 16:59 Last Admin: 07/01/19 08:17 Dose: 6.25 mg Donepezil HCl (Aricept) 10 mg PO HS [facility] Stop: 08/27/19 20:59 Last Admin: 06/30/19 20:07 Dose: 10 mg Levothyroxine Sodium (Synthroid) 0.1 mg PO QDAC [facility] Stop: 08/23/19 07:29 Last Admin: 07/01/19 06:31 Dose: 0.1 mg Lorazepam (Ativan) 0.5 mg PO Q4HR PRN; Protocol PRN Reason: Anxiety Stop: 07/23/19 00:34 Magnesium Hydroxide (Milk Of Magnesia) 30 ml PO HS PRN PRN Reason: Constipation Memantine (Namenda) 10 mg PO BID [facility] Stop: 08/28/19 08:59 Last Admin: 07/01/19 08:17 Dose: 10 mg Multi-Ingredient Cream (Eucerin Cream) 1 appl TP BID [facility] Stop: 08/22/19 16:59 Last Admin: 06/30/19 16:16 Dose: 1 appl Multivitamins/Vitamin C (Theragran) 1 tab PO DAILY [facility] Stop: 08/22/19 08:59 Last Admin: 07/01/19 08:17 Dose: 1 tab Pantoprazole Sodium (Protonix) 40 mg PO DAILY [facility] Stop: 08/23/19 08:59 Last Admin: 07/01/19 08:17 Dose: 40 mg Phenytoin (Dilantin) 125 mg PO BID [facility] Stop: 08/27/19 16:59 Last Admin: 07/01/19 08:16 Dose: 125 mg Quetiapine Fumarate (Seroquel) 50 mg PO HS [facility]; Protocol Stop: 08/22/19 20:59 Last Admin: 06/30/19 20:07 Dose: 50 mg Valproate Sodium (Depakene) 250 mg PO BID [facility]; Protocol Stop: 08/22/19 16:59 Last Admin: 07/01/19 08:15 Dose: 250 mg Zolpidem Tartrate (Ambien) 5 mg PO HS PRN PRN Reason: Insomnia Stop: 08/22/19 00:34 Last Admin: 06/30/19 23:08 Dose: 5 mg General: weak, demented, NAD HEENT: NC/AT, PERRLA Neck: Supple, No JVD Lungs: CTAB Cardiovascular: without murmur, other (s1, s2) Abdomen: soft, non-tender, non-distended Extremities: clear, other (BLE discoloration on silverio) Neurological: no change Internal Medicine Assmt/Plan - Assessment Assessment: Psychosis Afib Seizure HTN Hyperlipidemia Hyperthyroidism TIA Hx falls Dementia - Plan Plan: Continue current treatment plan. Continue current medications Continue to monitor VS Monitor Diet/Nutritional support. Psych management per Psychiatry. Pain Management. PT/OT prn Safety precaution, Fall precaution, frequent nursing round. Supportive care. Continue collaborating with consulting specialists, case management and nursing team Nutritional Asmnt/Malnutr-PDOC - Dietary Evaluation Malnutrition Findings (Please click <Entered> for more info): Nutritional Asmnt/Malnutrition Start: 06/25/19 16: 00 Text: Status: Complete Freq: Protocol: Document 06/25/19 16:00 JIL (Rec: 06/25/19 16:02 JIL [email or web address]) Nutritional Asmnt/Malnutrition Patient General Information Nutritional Screening Moderate Risk Diagnosis Psychosis Pertinent Medical Hx/Surgical Hx HTN, AFib, Seizure, hyperlipidemia, Hypothyroidism , TIA, FOSTER Lower Extremity Chronic Edema, Dementia, Psychosis Subjective Information Pt is a 73-year-old male admitted on 06/22 d/t increased agitation and confusion at nursing facility. Pt is eating an estimated 100% of meals Per Meal/Nutrition Activity Record. Dietary is currently providing an estimated 2200 kcals and 105 gm Pro to meet 100% kcal and 100+% Pro needs. Per wound care note (06/23), RT silverio, Dry, flaky skin with erythema, dark discoloration and scar tissue, present on admission., LT Silverio, Dry, flaky skin with erythema, dark discoloration multiple dried scabs, and scar tissue, present on admission. Anthropometrics HT: 6 FT WT: 260 LB (118.18 kg) ABW: 198 LB (90.23 kg) BMI: 35.26 (Obese, class II) GI/ Skin Integrity GI: WNL, Soft, Non-tender, Round BM: Not Noted I/O: 1200/1 (+1199) Skin: Abrasion, Erythema Isidoro: 17 Diet Order: Mechanical Soft, CIERRA Estimated Energy Needs: (Obese , ABW) 5867-2672 kcals (20-25 kcals/ kg) 70-90g Pro (0.8-1.0 g/kg) 9903-1127 ml (25-30 ml/kg) Current Diet Order/ Nutrition Support Mechanical Soft, CIERRA Pertinent Medications Maalox (PRN), Lipitor, Coreg, Synthroid, MOM (PRN), Theragran, Protonix Pertinent Labs 06/22: Bun/Cr 22/1.02, LDL 102 Nutritional Hx/Data Height 6 ft Height (Calculated Centimeters) 182.9 Current Weight (lbs) 260 lb Weight (Calculated Kilograms) 117.9 Weight (Calculated Grams) 423256.0 [place] Body Weight 178 LB (80.91 kg) % [place] Body Weight 146 Body Mass Index (BMI) 35.2 Weight Status Obese GI Symptoms Last BM Not Noted Skin Integrity/Comment: Skin: Abrasion, Erythema Isidoro: 17 Per wound care note (06/23), RT silverio, Dry, flaky skin with erythema, dark discoloration and scar tissue, present on admission., LT Silverio, Dry, flaky skin with erythema, dark discoloration multiple dried scabs, and scar tissue, present on admission. Current %PO Good (75-100%) Estimated Nutritional Goals BEE in Kcals: Adj wt of IBW Calories/Kcals/Kg 20-25 Kcals Calculated 5849-4441 Protein: Adj wt of IBW Protein g/k.8-1.0 Protein Calculated 70-90 Fluid: ml 8708-4753 ml (25-30 ml/kg) Nutritional Problem 1. Problem Problem Obesity Etiology r/t consistent energy overconsumption Signs/Symptoms: aeb BMI 35.26 (Obese, class II ). Malnutrition Alert Is there a minimum of two criteria No selected? Query Text:Check all the applicable criteria. A minimum of two criteria are recommended for diagnosis of either severe or non-severe malnutrition. Intervention/Recommendation Comments Continue Mechanical Soft, CIERRA diet as tolerated. Expected Outcomes/Goals Expected Outcomes/Goals 1.PO intake to continue to meet >75% of estimated nutritional needs. 2.Monitor PO intake, wt, nutrition related labs, and skin integrity to trend WNL. 3.Gradual weight loss (0.5-1.0 Lb/week), trending towards IBW. 4.F/U as low risk in 7-10 days , 07/02-07/05
[2019-07-01] MEDS: Atorvastatin Calcium 10 MG TAB PO SCH (20:51)
[2019-07-02] MEDS: Levothyroxine 0.1 Mg Tab PO SCH (06:34)
--- NOTE | 2019-07-02 08:43 | Progress Notes ---
DATE: 07/02/2019 SUBJECTIVE: Chart was reviewed and the patient interviewed. Also discussed the patient's condition with the staff and reviewed the records and labs. The patient is still confused and still needs lots of redirections. The patient is also still isolative and withdrawn. He still has episodes of irritability and anger and needs redirections. Otherwise, the patient is compliant with taking his medications with no side effects of medications. ASSESSMENT: The patient is still agitated and needs close monitoring. He is still confused. TREATMENT PLAN: We will continue to monitor the behavior and condition closely. Also, continue adjusting medications and work on behavioral modification. JOB# [id number]
[2019-07-02] MEDS: Pantoprazole 40 mg EC Tab PO SCH (09:02)
[2019-07-02] MEDS: Multivitamin Tab PO SCH (09:02)
[2019-07-02] MEDS: Eucerin Cream 16 oz Jar TP SCH ×2 (09:38→16:28)
--- NOTE | 2019-07-02 12:50 | Internal Medicine Prog Note ---
Internal Medicine Subjective - Subjective Service Date: 07/02/19 Patient seen and examined:: with staff Patient is:: awake, verbal, kira chair, talking, confused Patient Complaints of:: other (very restless.) Per staff patient has:: no adverse event, no episodes of fall Internal Medicine Objective - Physical Exam Vitals and I&O: Vital Signs Temp 98.1 F 07/02/19 06:30 Pulse 70 07/02/19 06:30 Resp 18 07/02/19 06:30 BP 134/61 07/02/19 06:30 Pulse Ox 97 07/02/19 06:30 Intake & Output 07/01/19 07/02/19 07/02/19 18:59 06:59 18:59 Intake Total 960 120 Balance 960 120 Intake: Oral 960 120 Other: # Voids 4 3 # Bowel Movements 1 Active Medications: Current Medications Acetaminophen (Tylenol) 650 mg PO Q4H PRN PRN Reason: Pain (Mild 1-3) Stop: 08/22/19 00:34 Acetaminophen (Tylenol) 650 mg PO Q6H PRN PRN Reason: Temperature above 101 Stop: 08/22/19 00:53 Acetaminophen (Tylenol) 1,000 mg PO Q8HR PRN PRN Reason: Pain (Moderate 4-6) Stop: 08/22/19 00:55 Al Hydrox/Mg Hydrox/Simethicone (Maalox) 30 ml PO Q4HR PRN PRN Reason: GI DISTRESS Stop: 08/22/19 00:34 Atorvastatin Calcium (Lipitor) 20 mg PO HS [facility]; Protocol Stop: 08/22/19 20:59 Last Admin: 07/01/19 20:51 Dose: 20 mg Carvedilol (Coreg) 6.25 mg PO BID [facility] Stop: 08/22/19 16:59 Last Admin: 07/01/19 17:21 Dose: Not Given Donepezil HCl (Aricept) 10 mg PO HS [facility] Stop: 08/27/19 20:59 Last Admin: 07/01/19 20:51 Dose: 10 mg Levothyroxine Sodium (Synthroid) 0.1 mg PO QDAC [facility] Stop: 08/23/19 07:29 Last Admin: 07/02/19 06:34 Dose: 0.1 mg Lorazepam (Ativan) 0.5 mg PO Q4HR PRN; Protocol PRN Reason: Anxiety Stop: 07/23/19 00:34 Magnesium Hydroxide (Milk Of Magnesia) 30 ml PO HS PRN PRN Reason: Constipation Memantine (Namenda) 10 mg PO BID [facility] Stop: 08/28/19 08:59 Last Admin: 07/02/19 09:02 Dose: 10 mg Multi-Ingredient Cream (Eucerin Cream) 1 appl TP BID [facility] Stop: 08/22/19 16:59 Last Admin: 07/02/19 09:38 Dose: 1 appl Multivitamins/Vitamin C (Theragran) 1 tab PO DAILY [facility] Stop: 08/22/19 08:59 Last Admin: 07/02/19 09:02 Dose: 1 tab Pantoprazole Sodium (Protonix) 40 mg PO DAILY [facility] Stop: 08/23/19 08:59 Last Admin: 07/02/19 09:02 Dose: 40 mg Phenytoin (Dilantin) 125 mg PO BID [facility] Stop: 08/27/19 16:59 Last Admin: 07/02/19 09:03 Dose: 125 mg Quetiapine Fumarate (Seroquel) 50 mg PO HS [facility]; Protocol Stop: 08/22/19 20:59 Last Admin: 07/01/19 20:51 Dose: 50 mg Valproate Sodium (Depakene) 250 mg PO BID [facility]; Protocol Stop: 08/22/19 16:59 Last Admin: 07/02/19 09:02 Dose: 250 mg Zolpidem Tartrate (Ambien) 5 mg PO HS PRN PRN Reason: Insomnia Stop: 08/22/19 00:34 Last Admin: 06/30/19 23:08 Dose: 5 mg Physical Exam: Patient is psychotic, hostile behavior, episodes of anger, needs to be monitored closely. General: weak, demented, NAD HEENT: NC/AT, PERRLA Neck: Supple, No JVD Lungs: CTAB Cardiovascular: without murmur, other (s1, s2) Abdomen: soft, non-tender, non-distended Extremities: clear, other (BLE discoloration on silverio) Neurological: no change Internal Medicine Assmt/Plan - Assessment Assessment: Psychosis. Dementia. Hypertension. Hyperlipidemia. Atrial Fibrillation. Seizure disorder. Hypothyroidism. History of Multiple falls. - Plan Plan: Continue present meds as directed. Psych management as per Psych. Monitor vitals and labs. Supportive care. Monitor diet and nutritional support. Continue current treatment plan. Nutritional Asmnt/Malnutr-PDOC - Dietary Evaluation Malnutrition Findings (Please click <Entered> for more info): Nutritional Asmnt/Malnutrition Start: 06/25/19 16: 00 Text: Status: Complete Freq: Protocol: Document 06/25/19 16:00 JIL (Rec: 06/25/19 16:02 JIL [email or web address]) Nutritional Asmnt/Malnutrition Patient General Information Nutritional Screening Moderate Risk Diagnosis Psychosis Pertinent Medical Hx/Surgical Hx HTN, AFib, Seizure, hyperlipidemia, Hypothyroidism , TIA, FOSTER Lower Extremity Chronic Edema, Dementia, Psychosis Subjective Information Pt is a 73-year-old male admitted on 06/22 d/t increased agitation and confusion at nursing facility. Pt is eating an estimated 100% of meals Per Meal/Nutrition Activity Record. Dietary is currently providing an estimated 2200 kcals and 105 gm Pro to meet 100% kcal and 100+% Pro needs. Per wound care note (06/23), RT silverio, Dry, flaky skin with erythema, dark discoloration and scar tissue, present on admission., LT Silverio, Dry, flaky skin with erythema, dark discoloration multiple dried scabs, and scar tissue, present on admission. Anthropometrics HT: 6 FT WT: 260 LB (118.18 kg) ABW: 198 LB (90.23 kg) BMI: 35.26 (Obese, class II) GI/ Skin Integrity GI: WNL, Soft, Non-tender, Round BM: Not Noted I/O: 1200/1 (+1199) Skin: Abrasion, Erythema Isidoro: 17 Diet Order: Mechanical Soft, CIERRA Estimated Energy Needs: (Obese , ABW) 4862-3963 kcals (20-25 kcals/ kg) 70-90g Pro (0.8-1.0 g/kg) 8363-4610 ml (25-30 ml/kg) Current Diet Order/ Nutrition Support Mechanical Soft, CIERRA Pertinent Medications Maalox (PRN), Lipitor, Coreg, Synthroid, MOM (PRN), Theragran, Protonix Pertinent Labs 06/22: Bun/Cr 22/1.02, LDL 102 Nutritional Hx/Data Height 1.83 m Height (Calculated Centimeters) 182.9 Current Weight (lbs) 117.934 kg Weight (Calculated Kilograms) 117.9 Weight (Calculated Grams) 311873.0 [place] Body Weight 178 LB (80.91 kg) % [place] Body Weight 146 Body Mass Index (BMI) 35.2 Weight Status Obese GI Symptoms Last BM Not Noted Skin Integrity/Comment: Skin: Abrasion, Erythema Isidoro: 17 Per wound care note (06/23), RT silverio, Dry, flaky skin with erythema, dark discoloration and scar tissue, present on admission., LT Silverio, Dry, flaky skin with erythema, dark discoloration multiple dried scabs, and scar tissue, present on admission. Current %PO Good (75-100%) Estimated Nutritional Goals BEE in Kcals: Adj wt of IBW Calories/Kcals/Kg 20-25 Kcals Calculated 1915-9961 Protein: Adj wt of IBW Protein g/k.8-1.0 Protein Calculated 70-90 Fluid: ml 0485-5576 ml (25-30 ml/kg) Nutritional Problem 1. Problem Problem Obesity Etiology r/t consistent energy overconsumption Signs/Symptoms: aeb BMI 35.26 (Obese, class II ). Malnutrition Alert Is there a minimum of two criteria No selected? Query Text:Check all the applicable criteria. A minimum of two criteria are recommended for diagnosis of either severe or non-severe malnutrition. Intervention/Recommendation Comments Continue Mechanical Soft, CIERRA diet as tolerated. Expected Outcomes/Goals Expected Outcomes/Goals 1.PO intake to continue to meet >75% of estimated nutritional needs. 2.Monitor PO intake, wt, nutrition related labs, and skin integrity to trend WNL. 3.Gradual weight loss (0.5-1.0 Lb/week), trending towards IBW. 4.F/U as low risk in 7-10 days , 07/02-07/05
[2019-07-02] MEDS: Atorvastatin Calcium 10 MG TAB PO SCH (20:24)
[2019-07-03] MEDS: Levothyroxine 0.1 Mg Tab PO SCH (06:33)
[2019-07-03] MEDS: Multivitamin Tab PO SCH (09:05)
[2019-07-03] MEDS: Eucerin Cream 16 oz Jar TP SCH ×2 (09:05→17:09)
[2019-07-03] MEDS: Pantoprazole 40 mg EC Tab PO SCH (09:06)
--- NOTE | 2019-07-03 13:15 | Internal Medicine Prog Note ---
Internal Medicine Subjective - Subjective Patient is:: awake, verbal, kira chair, talking, confused Patient Complaints of:: other (very restless.) Per staff patient has:: no adverse event, no episodes of fall Internal Medicine Objective - Physical Exam Vitals and I&O: Vital Signs Temp 97.2 F 07/03/19 06:03 Pulse 65 07/03/19 09:06 Resp 18 07/03/19 08:00 BP 145/66 07/03/19 09:06 Pulse Ox 97 07/03/19 06:03 Intake & Output 07/02/19 07/03/19 07/03/19 18:59 06:59 18:59 Intake Total 960 300 Output Total 1 Balance 960 299 Intake: Oral 960 300 Output: Urine/Stool Mix 1 Other: # Voids 4 1 # Bowel Movements 1 0 Active Medications: Current Medications Acetaminophen (Tylenol) 650 mg PO Q4H PRN PRN Reason: Pain (Mild 1-3) Stop: 08/22/19 00:34 Acetaminophen (Tylenol) 650 mg PO Q6H PRN PRN Reason: Temperature above 101 Stop: 08/22/19 00:53 Acetaminophen (Tylenol) 1,000 mg PO Q8HR PRN PRN Reason: Pain (Moderate 4-6) Stop: 08/22/19 00:55 Al Hydrox/Mg Hydrox/Simethicone (Maalox) 30 ml PO Q4HR PRN PRN Reason: GI DISTRESS Stop: 08/22/19 00:34 Atorvastatin Calcium (Lipitor) 20 mg PO HS [facility]; Protocol Stop: 08/22/19 20:59 Last Admin: 07/02/19 20:24 Dose: 20 mg Carvedilol (Coreg) 6.25 mg PO BID [facility] Stop: 08/22/19 16:59 Last Admin: 07/03/19 09:06 Dose: 6.25 mg Donepezil HCl (Aricept) 10 mg PO HS [facility] Stop: 08/27/19 20:59 Last Admin: 07/02/19 20:24 Dose: 10 mg Levothyroxine Sodium (Synthroid) 0.1 mg PO QDAC [facility] Stop: 08/23/19 07:29 Last Admin: 07/03/19 06:33 Dose: 0.1 mg Lorazepam (Ativan) 0.5 mg PO Q4HR PRN; Protocol PRN Reason: Anxiety Stop: 07/23/19 00:34 Magnesium Hydroxide (Milk Of Magnesia) 30 ml PO HS PRN PRN Reason: Constipation Memantine (Namenda) 10 mg PO BID [facility] Stop: 08/28/19 08:59 Last Admin: 07/03/19 09:06 Dose: 10 mg Multi-Ingredient Cream (Eucerin Cream) 1 appl TP BID [facility] Stop: 08/22/19 16:59 Last Admin: 07/03/19 09:05 Dose: 1 appl Multivitamins/Vitamin C (Theragran) 1 tab PO DAILY [facility] Stop: 08/22/19 08:59 Last Admin: 07/03/19 09:05 Dose: 1 tab Pantoprazole Sodium (Protonix) 40 mg PO DAILY [facility] Stop: 08/23/19 08:59 Last Admin: 07/03/19 09:06 Dose: 40 mg Phenytoin (Dilantin) 125 mg PO BID [facility] Stop: 08/27/19 16:59 Last Admin: 07/03/19 09:06 Dose: 125 mg Quetiapine Fumarate (Seroquel) 50 mg PO HS [facility]; Protocol Stop: 08/22/19 20:59 Last Admin: 07/02/19 20:24 Dose: 50 mg Valproate Sodium (Depakene) 250 mg PO BID [facility]; Protocol Stop: 08/22/19 16:59 Last Admin: 07/03/19 09:05 Dose: 250 mg Zolpidem Tartrate (Ambien) 5 mg PO HS PRN PRN Reason: Insomnia Stop: 08/22/19 00:34 Last Admin: 06/30/19 23:08 Dose: 5 mg General: weak, demented, NAD HEENT: NC/AT, PERRLA Neck: Supple, No JVD Lungs: CTAB Cardiovascular: without murmur, other (s1, s2) Abdomen: soft, non-tender, non-distended Extremities: clear, other (BLE discoloration on silverio) Neurological: no change Internal Medicine Assmt/Plan - Assessment Assessment: Psychosis Afib Seizure HTN Hyperlipidemia Hyperthyroidism TIA Hx falls Dementia - Plan Plan: Continue current treatment plan. Continue current medications Continue to monitor VS Monitor Diet/Nutritional support. Psych management per Psychiatry. Pain Management. PT/OT prn Safety precaution, Fall precaution, frequent nursing round. Supportive care. Continue collaborating with consulting specialists, case management and nursing team Nutritional Asmnt/Malnutr-PDOC - Dietary Evaluation Malnutrition Findings (Please click <Entered> for more info): Nutritional Asmnt/Malnutrition Start: 06/25/19 16: 00 Text: Status: Complete Freq: Protocol: Document 06/25/19 16:00 JIL (Rec: 06/25/19 16:02 JIL [email or web address]) Nutritional Asmnt/Malnutrition Patient General Information Nutritional Screening Moderate Risk Diagnosis Psychosis Pertinent Medical Hx/Surgical Hx HTN, AFib, Seizure, hyperlipidemia, Hypothyroidism , TIA, FOSTER Lower Extremity Chronic Edema, Dementia, Psychosis Subjective Information Pt is a 73-year-old male admitted on 06/22 d/t increased agitation and confusion at nursing facility. Pt is eating an estimated 100% of meals Per Meal/Nutrition Activity Record. Dietary is currently providing an estimated 2200 kcals and 105 gm Pro to meet 100% kcal and 100+% Pro needs. Per wound care note (06/23), RT silverio, Dry, flaky skin with erythema, dark discoloration and scar tissue, present on admission., LT Silverio, Dry, flaky skin with erythema, dark discoloration multiple dried scabs, and scar tissue, present on admission. Anthropometrics HT: 6 FT WT: 260 LB (118.18 kg) ABW: 198 LB (90.23 kg) BMI: 35.26 (Obese, class II) GI/ Skin Integrity GI: WNL, Soft, Non-tender, Round BM: Not Noted I/O: 1200/1 (+1199) Skin: Abrasion, Erythema Isidoro: 17 Diet Order: Mechanical Soft, CIERRA Estimated Energy Needs: (Obese , ABW) 6743-4437 kcals (20-25 kcals/ kg) 70-90g Pro (0.8-1.0 g/kg) 5846-1541 ml (25-30 ml/kg) Current Diet Order/ Nutrition Support Mechanical Soft, CIERRA Pertinent Medications Maalox (PRN), Lipitor, Coreg, Synthroid, MOM (PRN), Theragran, Protonix Pertinent Labs 06/22: Bun/Cr 22/1.02, LDL 102 Nutritional Hx/Data Height 6 ft Height (Calculated Centimeters) 182.9 Current Weight (lbs) 260 lb Weight (Calculated Kilograms) 117.9 Weight (Calculated Grams) 002562.0 [place] Body Weight 178 LB (80.91 kg) % [place] Body Weight 146 Body Mass Index (BMI) 35.2 Weight Status Obese GI Symptoms Last BM Not Noted Skin Integrity/Comment: Skin: Abrasion, Erythema Isidoro: 17 Per wound care note (06/23), RT silverio, Dry, flaky skin with erythema, dark discoloration and scar tissue, present on admission., LT Silverio, Dry, flaky skin with erythema, dark discoloration multiple dried scabs, and scar tissue, present on admission. Current %PO Good (75-100%) Estimated Nutritional Goals BEE in Kcals: Adj wt of IBW Calories/Kcals/Kg 20-25 Kcals Calculated 0630-9321 Protein: Adj wt of IBW Protein g/k.8-1.0 Protein Calculated 70-90 Fluid: ml 2489-6456 ml (25-30 ml/kg) Nutritional Problem 1. Problem Problem Obesity Etiology r/t consistent energy overconsumption Signs/Symptoms: aeb BMI 35.26 (Obese, class II ). Malnutrition Alert Is there a minimum of two criteria No selected? Query Text:Check all the applicable criteria. A minimum of two criteria are recommended for diagnosis of either severe or non-severe malnutrition. Intervention/Recommendation Comments Continue Mechanical Soft, CIERRA diet as tolerated. Expected Outcomes/Goals Expected Outcomes/Goals 1.PO intake to continue to meet >75% of estimated nutritional needs. 2.Monitor PO intake, wt, nutrition related labs, and skin integrity to trend WNL. 3.Gradual weight loss (0.5-1.0 Lb/week), trending towards IBW. 4.F/U as low risk in 7-10 days , 07/02-07/05
--- NOTE | 2019-07-03 18:12 | Psych Progress Note ---
Psych Progress Note - Intro Date of Progress Note: 07/03/19 - Assessment Assessment: Patient interviewed, case discussed with staff, chart and records were reviewed. Dr. Villalpando covering for Dr. Rubin. The patient was visited bedside.. The patient is quite confused. He repeatedly states "yes, yes." The patient is unable to answer any questions. Per the staff he has been withdrawn he needs constant redirection and he has a poor ability to care for his basic needs and needs staff assistance. - Vitals, I&O Vitals: Vital Signs - 24 hr 07/02/19 07/03/19 07/03/19 19:51 06:03 08:00 Temp 97.8 F 97.2 F HR 64 61 RR 19 19 18 BP 157/66 145/66 O2 Sat % 96 97 07/03/19 07/03/19 09:06 17:09 Temp HR 65 63 RR BP 145/66 138/67 O2 Sat % - Plan Plan: Continue current treatment plan and monitor for behaviors. - Review of Relevant Data Review of Relevant Data: I have reviewed the following items and time jyoti (where applicable) has been applied. - Medications Current Medications: Current Medications Acetaminophen (Tylenol) 650 mg PO Q4H PRN PRN Reason: Pain (Mild 1-3) Stop: 08/22/19 00:34 Acetaminophen (Tylenol) 650 mg PO Q6H PRN PRN Reason: Temperature above 101 Stop: 08/22/19 00:53 Acetaminophen (Tylenol) 1,000 mg PO Q8HR PRN PRN Reason: Pain (Moderate 4-6) Stop: 08/22/19 00:55 Al Hydrox/Mg Hydrox/Simethicone (Maalox) 30 ml PO Q4HR PRN PRN Reason: GI DISTRESS Stop: 08/22/19 00:34 Atorvastatin Calcium (Lipitor) 20 mg PO HS [facility]; Protocol Stop: 08/22/19 20:59 Last Admin: 07/02/19 20:24 Dose: 20 mg Carvedilol (Coreg) 6.25 mg PO BID [facility] Stop: 08/22/19 16:59 Last Admin: 07/03/19 17:09 Dose: 6.25 mg Donepezil HCl (Aricept) 10 mg PO HS [facility] Stop: 08/27/19 20:59 Last Admin: 07/02/19 20:24 Dose: 10 mg Levothyroxine Sodium (Synthroid) 0.1 mg PO QDAC [facility] Stop: 08/23/19 07:29 Last Admin: 07/03/19 06:33 Dose: 0.1 mg Lorazepam (Ativan) 0.5 mg PO Q4HR PRN; Protocol PRN Reason: Anxiety Stop: 07/23/19 00:34 Magnesium Hydroxide (Milk Of Magnesia) 30 ml PO HS PRN PRN Reason: Constipation Memantine (Namenda) 10 mg PO BID [facility] Stop: 08/28/19 08:59 Last Admin: 07/03/19 17:10 Dose: 10 mg Multi-Ingredient Cream (Eucerin Cream) 1 appl TP BID [facility] Stop: 08/22/19 16:59 Last Admin: 07/03/19 17:09 Dose: 1 appl Multivitamins/Vitamin C (Theragran) 1 tab PO DAILY [facility] Stop: 08/22/19 08:59 Last Admin: 07/03/19 09:05 Dose: 1 tab Pantoprazole Sodium (Protonix) 40 mg PO DAILY [facility] Stop: 08/23/19 08:59 Last Admin: 07/03/19 09:06 Dose: 40 mg Phenytoin (Dilantin) 125 mg PO BID [facility] Stop: 08/27/19 16:59 Last Admin: 07/03/19 17:10 Dose: 125 mg Quetiapine Fumarate (Seroquel) 50 mg PO HS [facility]; Protocol Stop: 08/22/19 20:59 Last Admin: 07/02/19 20:24 Dose: 50 mg Valproate Sodium (Depakene) 250 mg PO BID [facility]; Protocol Stop: 08/22/19 16:59 Last Admin: 07/03/19 17:10 Dose: 250 mg Zolpidem Tartrate (Ambien) 5 mg PO HS PRN PRN Reason: Insomnia Stop: 08/22/19 00:34 Last Admin: 06/30/19 23:08 Dose: 5 mg
[2019-07-03] MEDS: Atorvastatin Calcium 10 MG TAB PO SCH (20:59)
[2019-07-04] MEDS: Levothyroxine 0.1 Mg Tab PO SCH (06:42)
--- NOTE | 2019-07-04 07:42 | Progress Notes ---
DATE: 07/04/2019 SUBJECTIVE: The patient in the hospital, still confused, needing a lot of redirection, isolative, withdrawn, does not really say much to me, just stares blankly. I am not able to really engage with her. No outbursts. She does remain irritable, agitated at times, resistant. Medications were noted. We will continue inpatient monitoring. JOB# [id number]
[2019-07-04] MEDS: Multivitamin Tab PO SCH (09:05)
[2019-07-04] MEDS: Eucerin Cream 16 oz Jar TP SCH ×2 (09:09→16:39)
[2019-07-04] MEDS: Pantoprazole 40 mg EC Tab PO SCH (09:09)
--- NOTE | 2019-07-04 11:39 | Internal Medicine Prog Note ---
Internal Medicine Subjective - Subjective Patient is:: awake, asleep, kira chair, talking, confused Patient Complaints of:: other (very restless.) Per staff patient has:: no adverse event, no episodes of fall, other (Nurse reports possible seizure episode approx 10 secs this morning, pt on dilantin) Internal Medicine Objective - Physical Exam Vitals and I&O: Vital Signs Temp 97.8 F 07/04/19 05:49 Pulse 79 07/04/19 09:09 Resp 18 07/04/19 07:44 BP 167/76 07/04/19 09:09 Pulse Ox 94 07/04/19 05:49 Intake & Output 07/03/19 07/04/19 07/04/19 18:59 06:59 18:59 Intake Total 850 300 Balance 850 300 Intake: Oral 850 300 Other: # Voids 3 1 # Bowel Movements 0 0 Active Medications: Current Medications Acetaminophen (Tylenol) 650 mg PO Q4H PRN PRN Reason: Pain (Mild 1-3) Stop: 08/22/19 00:34 Acetaminophen (Tylenol) 650 mg PO Q6H PRN PRN Reason: Temperature above 101 Stop: 08/22/19 00:53 Acetaminophen (Tylenol) 1,000 mg PO Q8HR PRN PRN Reason: Pain (Moderate 4-6) Stop: 08/22/19 00:55 Al Hydrox/Mg Hydrox/Simethicone (Maalox) 30 ml PO Q4HR PRN PRN Reason: GI DISTRESS Stop: 08/22/19 00:34 Atorvastatin Calcium (Lipitor) 20 mg PO [facility]; Protocol Stop: 08/22/19 20:59 Last Admin: 07/03/19 20:59 Dose: 20 mg Carvedilol (Coreg) 6.25 mg PO BID [facility] Stop: 08/22/19 16:59 Last Admin: 07/04/19 09:09 Dose: 6.25 mg Donepezil HCl (Aricept) 10 mg PO HS [facility] Stop: 08/27/19 20:59 Last Admin: 07/03/19 20:59 Dose: 10 mg Levothyroxine Sodium (Synthroid) 0.1 mg PO QDAC [facility] Stop: 08/23/19 07:29 Last Admin: 07/04/19 06:42 Dose: 0.1 mg Lorazepam (Ativan) 0.5 mg PO Q4HR PRN; Protocol PRN Reason: Anxiety Stop: 07/23/19 00:34 Last Admin: 07/04/19 09:16 Dose: 0.5 mg Magnesium Hydroxide (Milk Of Magnesia) 30 ml PO HS PRN PRN Reason: Constipation Memantine (Namenda) 10 mg PO BID [facility] Stop: 08/28/19 08:59 Last Admin: 07/04/19 09:09 Dose: 10 mg Multi-Ingredient Cream (Eucerin Cream) 1 appl TP BID [facility] Stop: 08/22/19 16:59 Last Admin: 07/04/19 09:09 Dose: 1 appl Multivitamins/Vitamin C (Theragran) 1 tab PO DAILY [facility] Stop: 08/22/19 08:59 Last Admin: 07/03/19 09:05 Dose: 1 tab Pantoprazole Sodium (Protonix) 40 mg PO DAILY [facility] Stop: 08/23/19 08:59 Last Admin: 07/04/19 09:09 Dose: 40 mg Phenytoin (Dilantin) 125 mg PO BID [facility] Stop: 08/27/19 16:59 Last Admin: 07/04/19 09:09 Dose: 125 mg Quetiapine Fumarate (Seroquel) 50 mg PO HS [facility]; Protocol Stop: 08/22/19 20:59 Last Admin: 07/03/19 20:59 Dose: 50 mg Valproate Sodium (Depakene) 250 mg PO BID [facility]; Protocol Stop: 08/22/19 16:59 Last Admin: 07/04/19 09:09 Dose: 250 mg Zolpidem Tartrate (Ambien) 5 mg PO HS PRN PRN Reason: Insomnia Stop: 08/22/19 00:34 Last Admin: 07/03/19 20:59 Dose: 5 mg General: weak, demented, NAD HEENT: NC/AT, PERRLA Neck: Supple, No JVD Lungs: CTAB Cardiovascular: without murmur, other (s1, s2) Abdomen: soft, non-tender, non-distended Extremities: clear, other (BLE discoloration on silverio) Neurological: no change Internal Medicine Assmt/Plan - Assessment Assessment: Psychosis Afib Seizure HTN Hyperlipidemia Hyperthyroidism TIA Hx falls Dementia - Plan Plan: Continue current treatment plan. Continue current medications Continue to monitor VS Monitor Diet/Nutritional support. Psych management per Psychiatry. Pain Management. PT/OT prn Safety precaution, Fall precaution, frequent nursing round. Supportive care. Continue collaborating with consulting specialists, case management and nursing team Nutritional Asmnt/Malnutr-PDOC - Dietary Evaluation Malnutrition Findings (Please click <Entered> for more info): Nutritional Asmnt/Malnutrition Start: 06/25/19 16: 00 Text: Status: Complete Freq: Protocol: Document 06/25/19 16:00 JIL (Rec: 06/25/19 16:02 [email or web address]) Nutritional Asmnt/Malnutrition Patient General Information Nutritional Screening Moderate Risk Diagnosis Psychosis Pertinent Medical Hx/Surgical Hx HTN, AFib, Seizure, hyperlipidemia, Hypothyroidism , TIA, FOSTER Lower Extremity Chronic Edema, Dementia, Psychosis Subjective Information Pt is a 73-year-old male admitted on 06/22 d/t increased agitation and confusion at nursing facility. Pt is eating an estimated 100% of meals Per Meal/Nutrition Activity Record. Dietary is currently providing an estimated 2200 kcals and 105 gm Pro to meet 100% kcal and 100+% Pro needs. Per wound care note (06/23), RT silverio, Dry, flaky skin with erythema, dark discoloration and scar tissue, present on admission., LT Silverio, Dry, flaky skin with erythema, dark discoloration multiple dried scabs, and scar tissue, present on admission. Anthropometrics HT: 6 FT WT: 260 LB (118.18 kg) ABW: 198 LB (90.23 kg) BMI: 35.26 (Obese, class II) GI/ Skin Integrity GI: WNL, Soft, Non-tender, Round BM: Not Noted I/O: 1200/1 (+1199) Skin: Abrasion, Erythema Isidoro: 17 Diet Order: Mechanical Soft, CIERRA Estimated Energy Needs: (Obese , ABW) 7395-0893 kcals (20-25 kcals/ kg) 70-90g Pro (0.8-1.0 g/kg) 2253-2699 ml (25-30 ml/kg) Current Diet Order/ Nutrition Support Mechanical Soft, CIERRA Pertinent Medications Maalox (PRN), Lipitor, Coreg, Synthroid, MOM (PRN), Theragran, Protonix Pertinent Labs 06/22: Bun/Cr 22/1.02, LDL 102 Nutritional Hx/Data Height 6 ft Height (Calculated Centimeters) 182.9 Current Weight (lbs) 260 lb Weight (Calculated Kilograms) 117.9 Weight (Calculated Grams) 121530.0 [place] Body Weight 178 LB (80.91 kg) % [place] Body Weight 146 Body Mass Index (BMI) 35.2 Weight Status Obese GI Symptoms Last BM Not Noted Skin Integrity/Comment: Skin: Abrasion, Erythema Isidoro: 17 Per wound care note (06/23), RT silverio, Dry, flaky skin with erythema, dark discoloration and scar tissue, present on admission., LT Silverio, Dry, flaky skin with erythema, dark discoloration multiple dried scabs, and scar tissue, present on admission. Current %PO Good (75-100%) Estimated Nutritional Goals BEE in Kcals: Adj wt of IBW Calories/Kcals/Kg 20-25 Kcals Calculated 0398-3501 Protein: Adj wt of IBW Protein g/k.8-1.0 Protein Calculated 70-90 Fluid: ml 7099-0706 ml (25-30 ml/kg) Nutritional Problem 1. Problem Problem Obesity Etiology r/t consistent energy overconsumption Signs/Symptoms: aeb BMI 35.26 (Obese, class II ). Malnutrition Alert Is there a minimum of two criteria No selected? Query Text:Check all the applicable criteria. A minimum of two criteria are recommended for diagnosis of either severe or non-severe malnutrition. Intervention/Recommendation Comments Continue Mechanical Soft, CIERRA diet as tolerated. Expected Outcomes/Goals Expected Outcomes/Goals 1.PO intake to continue to meet >75% of estimated nutritional needs. 2.Monitor PO intake, wt, nutrition related labs, and skin integrity to trend WNL. 3.Gradual weight loss (0.5-1.0 Lb/week), trending towards IBW. 4.F/U as low risk in 7-10 days , 07/02-07/05
[2019-07-04] MEDS: Atorvastatin Calcium 10 MG TAB PO SCH (21:07)
[2019-07-05] MEDS: Levothyroxine 0.1 Mg Tab PO SCH (06:58)
[2019-07-05] MEDS: Pantoprazole 40 mg EC Tab PO SCH (08:06)
[2019-07-05] MEDS: Multivitamin Tab PO SCH (08:06)
[2019-07-05] MEDS: Eucerin Cream 16 oz Jar TP SCH ×2 (09:16→16:26)
--- NOTE | 2019-07-05 12:51 | Internal Medicine Prog Note ---
Internal Medicine Subjective - Subjective Service Date: 07/05/19 Patient seen and examined:: with staff Patient is:: awake, asleep, kira chair, talking, confused Patient Complaints of:: other (very restless.) Per staff patient has:: no adverse event, no episodes of fall, other (Nurse reports possible seizure episode approx 10 secs this morning, pt on dilantin) Internal Medicine Objective - Physical Exam Vitals and I&O: Vital Signs Temp 98.1 F 07/05/19 06:24 Pulse 72 07/05/19 08:06 Resp 17 07/05/19 08:00 BP 141/66 07/05/19 08:06 Pulse Ox 95 07/05/19 06:24 Intake & Output 07/04/19 07/05/19 07/05/19 18:59 06:59 18:59 Intake Total 800 560 Output Total 1 Balance 800 559 Intake: Oral 800 560 Output: Urine/Stool Mix 1 Other: # Voids 3 3 # Bowel Movements 1 0 Active Medications: Current Medications Acetaminophen (Tylenol) 650 mg PO Q4H PRN PRN Reason: Pain (Mild 1-3) Stop: 08/22/19 00:34 Acetaminophen (Tylenol) 650 mg PO Q6H PRN PRN Reason: Temperature above 101 Stop: 08/22/19 00:53 Acetaminophen (Tylenol) 1,000 mg PO Q8HR PRN PRN Reason: Pain (Moderate 4-6) Stop: 08/22/19 00:55 Al Hydrox/Mg Hydrox/Simethicone (Maalox) 30 ml PO Q4HR PRN PRN Reason: GI DISTRESS Stop: 08/22/19 00:34 Atorvastatin Calcium (Lipitor) 20 mg PO HS [facility]; Protocol Stop: 08/22/19 20:59 Last Admin: 07/04/19 21:07 Dose: 20 mg Carvedilol (Coreg) 6.25 mg PO BID [facility] Stop: 08/22/19 16:59 Last Admin: 07/05/19 08:06 Dose: 6.25 mg Donepezil HCl (Aricept) 10 mg PO HS [facility] Stop: 08/27/19 20:59 Last Admin: 07/04/19 21:05 Dose: 10 mg Levothyroxine Sodium (Synthroid) 0.1 mg PO QDAC [facility] Stop: 08/23/19 07:29 Last Admin: 07/05/19 06:58 Dose: 0.1 mg Lorazepam (Ativan) 0.5 mg PO Q4HR PRN; Protocol PRN Reason: Anxiety Stop: 07/23/19 00:34 Last Admin: 07/04/19 09:16 Dose: 0.5 mg Magnesium Hydroxide (Milk Of Magnesia) 30 ml PO HS PRN PRN Reason: Constipation Memantine (Namenda) 10 mg PO BID [facility] Stop: 08/28/19 08:59 Last Admin: 07/05/19 08:06 Dose: 10 mg Multi-Ingredient Cream (Eucerin Cream) 1 appl TP BID [facility] Stop: 08/22/19 16:59 Last Admin: 07/05/19 09:16 Dose: 1 appl Multivitamins/Vitamin C (Theragran) 1 tab PO DAILY [facility] Stop: 08/22/19 08:59 Last Admin: 07/05/19 08:06 Dose: 1 tab Pantoprazole Sodium (Protonix) 40 mg PO QDAC [facility] Stop: 09/04/19 07:29 Phenytoin (Dilantin) 125 mg PO BID [facility] Stop: 08/27/19 16:59 Last Admin: 07/05/19 08:06 Dose: 125 mg Quetiapine Fumarate (Seroquel) 50 mg PO HS [facility]; Protocol Stop: 08/22/19 20:59 Last Admin: 07/04/19 21:06 Dose: 50 mg Valproate Sodium (Depakene) 250 mg PO BID [facility]; Protocol Stop: 08/22/19 16:59 Last Admin: 07/05/19 08:06 Dose: 250 mg Zolpidem Tartrate (Ambien) 5 mg PO HS PRN PRN Reason: Insomnia Stop: 08/22/19 00:34 Last Admin: 07/04/19 21:06 Dose: 5 mg Physical Exam: Patient is psychotic, very irritated, still hostile with episodes of anger, needs to be monitored closely. General: weak, demented, NAD HEENT: NC/AT, PERRLA Neck: Supple, No JVD Lungs: CTAB Cardiovascular: without murmur, other (s1, s2) Abdomen: soft, non-tender, non-distended Extremities: clear, other (BLE discoloration on silverio) Neurological: no change Internal Medicine Assmt/Plan - Assessment Assessment: Psychosis. Dementia. Hypertension. Hyperlipidemia. Atrial Fibrillation. Seizure disorder. Hypothyroidism. History of Multiple falls. - Plan Plan: Continue present meds as directed. Psych management as per Psych. Monitor vitals and labs. Supportive care. Monitor diet and nutritional support. Continue current treatment plan. Nutritional Asmnt/Malnutr-PDOC - Dietary Evaluation Malnutrition Findings (Please click <Entered> for more info): Nutritional Asmnt/Malnutrition Start: 06/25/19 16: 00 Text: Status: Complete Freq: Protocol: Document 06/25/19 16:00 MELIDATIERA (Rec: 06/25/19 16:02 [email or web address] [email or web address]) Nutritional Asmnt/Malnutrition Patient General Information Nutritional Screening Moderate Risk Diagnosis Psychosis Pertinent Medical Hx/Surgical Hx HTN, AFib, Seizure, hyperlipidemia, Hypothyroidism , TIA, FOSTER Lower Extremity Chronic Edema, Dementia, Psychosis Subjective Information Pt is a 73-year-old male admitted on 06/22 d/t increased agitation and confusion at nursing facility. Pt is eating an estimated 100% of meals Per Meal/Nutrition Activity Record. Dietary is currently providing an estimated 2200 kcals and 105 gm Pro to meet 100% kcal and 100+% Pro needs. Per wound care note (06/23), RT silverio, Dry, flaky skin with erythema, dark discoloration and scar tissue, present on admission., LT Silverio, Dry, flaky skin with erythema, dark discoloration multiple dried scabs, and scar tissue, present on admission. Anthropometrics HT: 6 FT WT: 260 LB (118.18 kg) ABW: 198 LB (90.23 kg) BMI: 35.26 (Obese, class II) GI/ Skin Integrity GI: WNL, Soft, Non-tender, Round BM: Not Noted I/O: 1200/1 (+1199) Skin: Abrasion, Erythema Isidoro: 17 Diet Order: Mechanical Soft, CIERRA Estimated Energy Needs: (Obese , ABW) 3877-6146 kcals (20-25 kcals/ kg) 70-90g Pro (0.8-1.0 g/kg) 7040-7014 ml (25-30 ml/kg) Current Diet Order/ Nutrition Support Mechanical Soft, CIERRA Pertinent Medications Maalox (PRN), Lipitor, Coreg, Synthroid, MOM (PRN), Theragran, Protonix Pertinent Labs 06/22: Bun/Cr 22/1.02, LDL 102 Nutritional Hx/Data Height 1.83 m Height (Calculated Centimeters) 182.9 Current Weight (lbs) 117.934 kg Weight (Calculated Kilograms) 117.9 Weight (Calculated Grams) 275502.0 [place] Body Weight 178 LB (80.91 kg) % [place] Body Weight 146 Body Mass Index (BMI) 35.2 Weight Status Obese GI Symptoms Last BM Not Noted Skin Integrity/Comment: Skin: Abrasion, Erythema Isidoro: 17 Per wound care note (06/23), RT silverio, Dry, flaky skin with erythema, dark discoloration and scar tissue, present on admission., LT Silverio, Dry, flaky skin with erythema, dark discoloration multiple dried scabs, and scar tissue, present on admission. Current %PO Good (75-100%) Estimated Nutritional Goals BEE in Kcals: Adj wt of IBW Calories/Kcals/Kg 20-25 Kcals Calculated 8121-1558 Protein: Adj wt of IBW Protein g/k.8-1.0 Protein Calculated 70-90 Fluid: ml 2728-4817 ml (25-30 ml/kg) Nutritional Problem 1. Problem Problem Obesity Etiology r/t consistent energy overconsumption Signs/Symptoms: aeb BMI 35.26 (Obese, class II ). Malnutrition Alert Is there a minimum of two criteria No selected? Query Text:Check all the applicable criteria. A minimum of two criteria are recommended for diagnosis of either severe or non-severe malnutrition. Intervention/Recommendation Comments Continue Mechanical Soft, CIERRA diet as tolerated. Expected Outcomes/Goals Expected Outcomes/Goals 1.PO intake to continue to meet >75% of estimated nutritional needs. 2.Monitor PO intake, wt, nutrition related labs, and skin integrity to trend WNL. 3.Gradual weight loss (0.5-1.0 Lb/week), trending towards IBW. 4.F/U as low risk in 7-10 days , 07/02-07/05
[2019-07-05 16:05] VITALS: BP 137/81
[2019-07-05] MEDS: Atorvastatin Calcium 10 MG TAB PO SCH (20:59)
[2019-07-06] MEDS: Levothyroxine 0.1 Mg Tab PO SCH (06:44)
[2019-07-06] MEDS: Pantoprazole 40 mg EC Tab PO SCH (06:44)
[2019-07-06] MEDS: Multivitamin Tab PO SCH (08:09)
[2019-07-06] MEDS: Eucerin Cream 16 oz Jar TP SCH ×2 (08:25→17:41)
--- NOTE | 2019-07-06 08:59 | Progress Notes ---
DATE: SUBJECTIVE: Chart was reviewed and the patient interviewed. Also discussed the patient's condition with the staff and reviewed records and labs. The patient is still in a depressed mood and is still withdrawn. The patient also is still guarded and still wants to be left alone and interacting minimally with others. The patient also is still showing poor personal hygiene. Otherwise, the patient is compliant with taking his medications with no side effects of medications. ASSESSMENT: The patient is still in a depressed mood and confused. TREATMENT PLAN: Continue adjusting medications and monitor his behavior closely. Also, we will continue adjusting psychotropic medications. JOB# [id number]
--- NOTE | 2019-07-06 15:46 | Internal Medicine Prog Note ---
Internal Medicine Subjective - Subjective Service Date: 07/06/19 Patient is:: awake, asleep, kira chair, talking, confused Patient Complaints of:: other (very restless.) Per staff patient has:: no adverse event, no episodes of fall, other (Nurse reports possible seizure episode approx 10 secs this morning, pt on dilantin) Internal Medicine Objective - Physical Exam Vitals and I&O: Vital Signs Temp 98.2 F 07/06/19 14:00 Pulse 64 07/06/19 14:00 Resp 20 07/06/19 14:00 BP 112/54 07/06/19 14:00 Pulse Ox 97 07/06/19 14:00 Intake & Output 07/05/19 07/06/19 07/06/19 18:59 06:59 18:59 Intake Total 120 Balance 120 Intake: Oral 120 Other: # Voids 3 3 # Bowel Movements 1 0 Active Medications: Current Medications Acetaminophen (Tylenol) 650 mg PO Q4H PRN PRN Reason: Pain (Mild 1-3) Stop: 08/22/19 00:34 Acetaminophen (Tylenol) 650 mg PO Q6H PRN PRN Reason: Temperature above 101 Stop: 08/22/19 00:53 Acetaminophen (Tylenol) 1,000 mg PO Q8HR PRN PRN Reason: Pain (Moderate 4-6) Stop: 08/22/19 00:55 Al Hydrox/Mg Hydrox/Simethicone (Maalox) 30 ml PO Q4HR PRN PRN Reason: GI DISTRESS Stop: 08/22/19 00:34 Atorvastatin Calcium (Lipitor) 20 mg PO HS [facility]; Protocol Stop: 08/22/19 20:59 Last Admin: 07/05/19 20:59 Dose: 20 mg Carvedilol (Coreg) 6.25 mg PO BID [facility] Stop: 08/22/19 16:59 Last Admin: 07/06/19 08:09 Dose: 6.25 mg Donepezil HCl (Aricept) 10 mg PO HS [facility] Stop: 08/27/19 20:59 Last Admin: 07/05/19 20:59 Dose: 10 mg Levothyroxine Sodium (Synthroid) 0.1 mg PO QDAC [facility] Stop: 08/23/19 07:29 Last Admin: 07/06/19 06:44 Dose: 0.1 mg Lorazepam (Ativan) 0.5 mg PO Q4HR PRN; Protocol PRN Reason: Anxiety Stop: 07/23/19 00:34 Last Admin: 07/04/19 09:16 Dose: 0.5 mg Magnesium Hydroxide (Milk Of Magnesia) 30 ml PO HS PRN PRN Reason: Constipation Memantine (Namenda) 10 mg PO BID [facility] Stop: 08/28/19 08:59 Last Admin: 07/06/19 08:09 Dose: 10 mg Multi-Ingredient Cream (Eucerin Cream) 1 appl TP BID [facility] Stop: 08/22/19 16:59 Last Admin: 07/06/19 08:25 Dose: 1 appl Multivitamins/Vitamin C (Theragran) 1 tab PO DAILY [facility] Stop: 08/22/19 08:59 Last Admin: 07/06/19 08:09 Dose: 1 tab Pantoprazole Sodium (Protonix) 40 mg PO QDAC [facility] Stop: 09/04/19 07:29 Last Admin: 07/06/19 06:44 Dose: 40 mg Phenytoin (Dilantin) 125 mg PO BID [facility] Stop: 08/27/19 16:59 Last Admin: 07/06/19 08:08 Dose: 125 mg Quetiapine Fumarate (Seroquel) 50 mg PO HS [facility]; Protocol Stop: 08/22/19 20:59 Last Admin: 07/05/19 20:59 Dose: 50 mg Valproate Sodium (Depakene) 250 mg PO BID [facility]; Protocol Stop: 08/22/19 16:59 Last Admin: 07/06/19 08:09 Dose: 250 mg Zolpidem Tartrate (Ambien) 5 mg PO HS PRN PRN Reason: Insomnia Stop: 08/22/19 00:34 Last Admin: 07/05/19 21:00 Dose: 5 mg General: weak, demented, NAD HEENT: NC/AT, PERRLA Neck: Supple, No JVD Lungs: CTAB Cardiovascular: without murmur, other (s1, s2) Abdomen: soft, non-tender, non-distended Extremities: clear, other (BLE discoloration on silverio) Neurological: no change Internal Medicine Assmt/Plan - Assessment Assessment: Psychosis Afib Seizure HTN Hyperlipidemia Hyperthyroidism TIA Hx falls Dementia - Plan Plan: Continue current treatment plan. Continue current medications Continue to monitor VS Monitor Diet/Nutritional support. Psych management per Psychiatry. Pain Management. PT/OT prn Safety precaution, Fall precaution, frequent nursing round. Supportive care. Continue collaborating with consulting specialists, case management and nursing team Nutritional Asmnt/Malnutr-PDOC - Dietary Evaluation Malnutrition Findings (Please click <Entered> for more info): Nutritional Asmnt/Malnutrition Start: 06/25/19 16: 00 Text: Status: Complete Freq: Protocol: Document 06/25/19 16:00 JIL (Rec: 06/25/19 16:02 [email or web address] [id number]) Nutritional Asmnt/Malnutrition Patient General Information Nutritional Screening Moderate Risk Diagnosis Psychosis Pertinent Medical Hx/Surgical Hx HTN, AFib, Seizure, hyperlipidemia, Hypothyroidism , TIA, FOSTER Lower Extremity Chronic Edema, Dementia, Psychosis Subjective Information Pt is a 73-year-old male admitted on 06/22 d/t increased agitation and confusion at nursing facility. Pt is eating an estimated 100% of meals Per Meal/Nutrition Activity Record. Dietary is currently providing an estimated 2200 kcals and 105 gm Pro to meet 100% kcal and 100+% Pro needs. Per wound care note (06/23), RT silverio, Dry, flaky skin with erythema, dark discoloration and scar tissue, present on admission., LT Silverio, Dry, flaky skin with erythema, dark discoloration multiple dried scabs, and scar tissue, present on admission. Anthropometrics HT: 6 FT WT: 260 LB (118.18 kg) ABW: 198 LB (90.23 kg) BMI: 35.26 (Obese, class II) GI/ Skin Integrity GI: WNL, Soft, Non-tender, Round BM: Not Noted I/O: 1200/1 (+1199) Skin: Abrasion, Erythema Isidoro: 17 Diet Order: Mechanical Soft, CIERRA Estimated Energy Needs: (Obese , ABW) 3203-3409 kcals (20-25 kcals/ kg) 70-90g Pro (0.8-1.0 g/kg) 1938-4458 ml (25-30 ml/kg) Current Diet Order/ Nutrition Support Mechanical Soft, CIERRA Pertinent Medications Maalox (PRN), Lipitor, Coreg, Synthroid, MOM (PRN), Theragran, Protonix Pertinent Labs 06/22: Bun/Cr 22/1.02, LDL 102 Nutritional Hx/Data Height 6 ft Height (Calculated Centimeters) 182.9 Current Weight (lbs) 260 lb Weight (Calculated Kilograms) 117.9 Weight (Calculated Grams) 402107.0 [place] Body Weight 178 LB (80.91 kg) % [place] Body Weight 146 Body Mass Index (BMI) 35.2 Weight Status Obese GI Symptoms Last BM Not Noted Skin Integrity/Comment: Skin: Abrasion, Erythema Isidoro: 17 Per wound care note (06/23), RT silverio, Dry, flaky skin with erythema, dark discoloration and scar tissue, present on admission., LT Silverio, Dry, flaky skin with erythema, dark discoloration multiple dried scabs, and scar tissue, present on admission. Current %PO Good (75-100%) Estimated Nutritional Goals BEE in Kcals: Adj wt of IBW Calories/Kcals/Kg 20-25 Kcals Calculated 8514-6808 Protein: Adj wt of IBW Protein g/k.8-1.0 Protein Calculated 70-90 Fluid: ml 9302-3162 ml (25-30 ml/kg) Nutritional Problem 1. Problem Problem Obesity Etiology r/t consistent energy overconsumption Signs/Symptoms: aeb BMI 35.26 (Obese, class II ). Malnutrition Alert Is there a minimum of two criteria No selected? Query Text:Check all the applicable criteria. A minimum of two criteria are recommended for diagnosis of either severe or non-severe malnutrition. Intervention/Recommendation Comments Continue Mechanical Soft, CIERRA diet as tolerated. Expected Outcomes/Goals Expected Outcomes/Goals 1.PO intake to continue to meet >75% of estimated nutritional needs. 2.Monitor PO intake, wt, nutrition related labs, and skin integrity to trend WNL. 3.Gradual weight loss (0.5-1.0 Lb/week), trending towards IBW. 4.F/U as low risk in 7-10 days , 07/02-07/05
--- NOTE | 2019-07-06 17:25 | Progress Notes ---
DATE: SUBJECTIVE: Chart reviewed and the patient interviewed. Also discussed the patient's condition with the staff and reviewed records and labs. The patient is still confused and seems to be disoriented and agitated. The patient also still wants to be left alone and he is staying by himself most of the time. The patient also is still interacting minimally with peers and with others. He still needs lots of redirections. Otherwise, the patient is compliant with taking Depakote and Seroquel. Depakote blood level is still pending. ASSESSMENT: The patient is still psychotic and confused. TREATMENT PLAN: Continue Seroquel 50 mg at bedtime and Depakote 250 mg twice a day. Also, continue Aricept and Namenda same dose. Also, we will continue to work on his irritability and on his confusion and continue to follow up. JOB# [id number]
[2019-07-06] MEDS: Atorvastatin Calcium 10 MG TAB PO SCH (21:01)
[2019-07-07] MEDS: Levothyroxine 0.1 Mg Tab PO SCH (06:32)
[2019-07-07] MEDS: Pantoprazole 40 mg EC Tab PO SCH (06:33)
--- NOTE | 2019-07-07 07:18 | Discharge Summary ---
DATE OF DISCHARGE: 07/07/2019 AGE: 73. SEX: Male. PHYSICIAN: Dr. Rubin. FINAL DIAGNOSIS AND PRIMARY DIAGNOSIS: Schizophrenic disorder. SECONDARY DIAGNOSIS: Dementia, moderate to severe, with psychotic features. MEDICAL DIAGNOSES: Hypertension. Seizure disorder. Hypothyroidism. Atrial fibrillation. Transient ischemic attack. REASON FOR HOSPITALIZATION: The patient was admitted to the hospital because of increased irritability and agitation and inability to follow directions and suspicious and paranoid. HOSPITAL COURSE: The patient continued to be in irritable and angry mood. The patient also was anxious and easily agitated. The patient also was suspicious and was paranoid, but he was compliant with taking his medications. He also wanted to be left alone most of the time. The patient also was compliant with taking his medications and the patient started on Seroquel and the dose adjusted to 50 mg at bedtime and continued to take Depakote in a dose of 250 mg twice a day as well as Namenda 10 mg twice a day and also Aricept in a dose of 10 mg at bedtime. The patient became calm and he was less irritable and less agitated. Also, was compliant with taking his medications. The patient also was accepted back to [facility] and the patient was discharged there. PHYSICAL EXAMINATION: The patient was basically as mentioned under final diagnosis. Blood workup was also basically within normal and the patient has no major medical issues. AFTER DISCHARGE PLANS: The patient discharged from the hospital back to [facility] with plans to follow him there. EXPECTED OUTCOME AFTER DISCHARGE: Fair if the patient continues with his treatment and follow up with discharge plans. [facility]# [id number]
[2019-07-07] MEDS: Multivitamin Tab PO SCH (08:30)
[2019-07-07] MEDS: Eucerin Cream 16 oz Jar TP SCH (08:32)
--- NOTE | 2019-07-07 15:17 | Internal Medicine Prog Note ---
Internal Medicine Subjective - Subjective Service Date: 07/07/19 Patient seen and examined:: with staff, chart reviewed Patient is:: awake, asleep, kira chair, talking, confused Patient Complaints of:: other (very restless.) Per staff patient has:: no adverse event, no episodes of fall, other (Nurse reports possible seizure episode approx 10 secs this morning, pt on dilantin) Internal Medicine Objective - Physical Exam Vitals and I&O: Vital Signs Temp 97.2 F 07/07/19 10:36 Pulse 70 07/07/19 10:36 Resp 18 07/07/19 10:36 BP 126/62 07/07/19 10:36 Pulse Ox 98 07/07/19 10:36 Intake & Output 07/06/19 07/07/19 07/07/19 18:59 06:59 18:59 Intake Total 800 120 Balance 800 120 Intake: Oral 800 120 Other: # Voids 3 3 # Bowel Movements 1 1 Active Medications: Current Medications Acetaminophen (Tylenol) 650 mg PO Q4H PRN PRN Reason: Pain (Mild 1-3) Stop: 08/22/19 00:34 Acetaminophen (Tylenol) 650 mg PO Q6H PRN PRN Reason: Temperature above 101 Stop: 08/22/19 00:53 Acetaminophen (Tylenol) 1,000 mg PO Q8HR PRN PRN Reason: Pain (Moderate 4-6) Stop: 08/22/19 00:55 Al Hydrox/Mg Hydrox/Simethicone (Maalox) 30 ml PO Q4HR PRN PRN Reason: GI DISTRESS Stop: 08/22/19 00:34 Atorvastatin Calcium (Lipitor) 20 mg PO [facility]; Protocol Stop: 08/22/19 20:59 Last Admin: 07/06/19 21:01 Dose: 20 mg Carvedilol (Coreg) 6.25 mg PO BID [facility] Stop: 08/22/19 16:59 Last Admin: 07/07/19 08:30 Dose: 6.25 mg Donepezil HCl (Aricept) 10 mg PO HS [facility] Stop: 08/27/19 20:59 Last Admin: 07/06/19 21:01 Dose: 10 mg Levothyroxine Sodium (Synthroid) 0.1 mg PO QDAC [facility] Stop: 08/23/19 07:29 Last Admin: 07/07/19 06:32 Dose: 0.1 mg Lorazepam (Ativan) 0.5 mg PO Q4HR PRN; Protocol PRN Reason: Anxiety Stop: 07/23/19 00:34 Last Admin: 07/04/19 09:16 Dose: 0.5 mg Magnesium Hydroxide (Milk Of Magnesia) 30 ml PO HS PRN PRN Reason: Constipation Memantine (Namenda) 10 mg PO BID [facility] Stop: 08/28/19 08:59 Last Admin: 07/07/19 08:30 Dose: 10 mg Multi-Ingredient Cream (Eucerin Cream) 1 appl TP BID [facility] Stop: 08/22/19 16:59 Last Admin: 07/07/19 08:32 Dose: 1 appl Multivitamins/Vitamin C (Theragran) 1 tab PO DAILY [facility] Stop: 08/22/19 08:59 Last Admin: 07/07/19 08:30 Dose: 1 tab Pantoprazole Sodium (Protonix) 40 mg PO QDAC [facility] Stop: 09/04/19 07:29 Last Admin: 07/07/19 06:33 Dose: 40 mg Phenytoin (Dilantin) 125 mg PO BID [facility] Stop: 08/27/19 16:59 Last Admin: 07/07/19 08:30 Dose: 125 mg Quetiapine Fumarate (Seroquel) 50 mg PO HS [facility]; Protocol Stop: 08/22/19 20:59 Last Admin: 07/06/19 21:01 Dose: 50 mg Valproate Sodium (Depakene) 250 mg PO BID [facility]; Protocol Stop: 08/22/19 16:59 Last Admin: 07/07/19 08:30 Dose: 250 mg Zolpidem Tartrate (Ambien) 5 mg PO HS PRN PRN Reason: Insomnia Stop: 08/22/19 00:34 Last Admin: 07/06/19 21:02 Dose: 5 mg Physical Exam: Patient is being discharged today to [facility] he will continue present care management. General: weak, demented, NAD HEENT: NC/AT, PERRLA Neck: Supple, No JVD Lungs: CTAB Cardiovascular: without murmur, other (s1, s2) Abdomen: soft, non-tender, non-distended Extremities: clear, other (BLE discoloration on silverio) Neurological: no change Internal Medicine Assmt/Plan - Assessment Assessment: Psychosis. Dementia. Hypertension. Hyperlipidemia. Atrial Fibrillation. Seizure disorder. Hypothyroidism. History of Multiple falls. - Plan Plan: Discharge planning. Continue current treatment plan. Nutritional Asmnt/Malnutr-PDOC - Dietary Evaluation Malnutrition Findings (Please click <Entered> for more info): Nutritional Asmnt/Malnutrition Start: 06/25/19 16: 00 Text: Status: Complete Freq: Protocol: Document 06/25/19 16:00 JIL (Rec: 06/25/19 16:02 JIL [email or web address]) Nutritional Asmnt/Malnutrition Patient General Information Nutritional Screening Moderate Risk Diagnosis Psychosis Pertinent Medical Hx/Surgical Hx HTN, AFib, Seizure, hyperlipidemia, Hypothyroidism , TIA, FOSTER Lower Extremity Chronic Edema, Dementia, Psychosis Subjective Information Pt is a 73-year-old male admitted on 06/22 d/t increased agitation and confusion at nursing facility. Pt is eating an estimated 100% of meals Per Meal/Nutrition Activity Record. Dietary is currently providing an estimated 2200 kcals and 105 gm Pro to meet 100% kcal and 100+% Pro needs. Per wound care note (06/23), RT silverio, Dry, flaky skin with erythema, dark discoloration and scar tissue, present on admission., LT Silverio, Dry, flaky skin with erythema, dark discoloration multiple dried scabs, and scar tissue, present on admission. Anthropometrics HT: 6 FT WT: 260 LB (118.18 kg) ABW: 198 LB (90.23 kg) BMI: 35.26 (Obese, class II) GI/ Skin Integrity GI: WNL, Soft, Non-tender, Round BM: Not Noted I/O: 1200/1 (+1199) Skin: Abrasion, Erythema Isidoro: 17 Diet Order: Mechanical Soft, CIERRA Estimated Energy Needs: (Obese , ABW) 7406-3923 kcals (20-25 kcals/ kg) 70-90g Pro (0.8-1.0 g/kg) 8750-0408 ml (25-30 ml/kg) Current Diet Order/ Nutrition Support Mechanical Soft, CIERRA Pertinent Medications Maalox (PRN), Lipitor, Coreg, Synthroid, MOM (PRN), Theragran, Protonix Pertinent Labs 06/22: Bun/Cr 22/1.02, LDL 102 Nutritional Hx/Data Height 1.83 m Height (Calculated Centimeters) 182.9 Current Weight (lbs) 117.934 kg Weight (Calculated Kilograms) 117.9 Weight (Calculated Grams) 179840.0 [place] Body Weight 178 LB (80.91 kg) % [place] Body Weight 146 Body Mass Index (BMI) 35.2 Weight Status Obese GI Symptoms Last BM Not Noted Skin Integrity/Comment: Skin: Abrasion, Erythema Isidoro: 17 Per wound care note (06/23), RT silverio, Dry, flaky skin with erythema, dark discoloration and scar tissue, present on admission., LT Silverio, Dry, flaky skin with erythema, dark discoloration multiple dried scabs, and scar tissue, present on admission. Current %PO Good (75-100%) Estimated Nutritional Goals BEE in Kcals: Adj wt of IBW Calories/Kcals/Kg 20-25 Kcals Calculated 3618-9270 Protein: Adj wt of IBW Protein g/k.8-1.0 Protein Calculated 70-90 Fluid: ml 5869-0615 ml (25-30 ml/kg) Nutritional Problem 1. Problem Problem Obesity Etiology r/t consistent energy overconsumption Signs/Symptoms: aeb BMI 35.26 (Obese, class II ). Malnutrition Alert Is there a minimum of two criteria No selected? Query Text:Check all the applicable criteria. A minimum of two criteria are recommended for diagnosis of either severe or non-severe malnutrition. Intervention/Recommendation Comments Continue Mechanical Soft, CIERRA diet as tolerated. Expected Outcomes/Goals Expected Outcomes/Goals 1.PO intake to continue to meet >75% of estimated nutritional needs. 2.Monitor PO intake, wt, nutrition related labs, and skin integrity to trend WNL. 3.Gradual weight loss (0.5-1.0 Lb/week), trending towards IBW. 4.F/U as low risk in 7-10 days , 07/02-07/05
== END 2019-07-07 14:00 | DRG 884 ==
LOC: GERO 19:55
PROVIDERS: ADMIT Psychiatry & Neurology Psychiatry; ATTEND Psychiatry & Neurology Psychiatry
DX: F03.91 Unspecified dementia, unspecified severity, with behavioral disturbance (principal); I10 Essential (primary) hypertension; G40.909 Epilepsy, unspecified, not intractable, without status epilepticus; I48.91 Unspecified atrial fibrillation; E03.9 Hypothyroidism, unspecified; E78.5 Hyperlipidemia, unspecified; Z86.73 Personal history of transient ischemic attack (TIA), and cerebral infarction without residual deficits; Z95.4 Presence of other heart-valve replacement; F29 Unspecified psychosis not due to a substance or known physiological condition
CPT/HCPCS: 90899; Z7610